=== PATIENT | female | born 1950 | race Caucasian/White ===

== ENCOUNTER 2016-08-05 11:21 | Inpatient (IN) | payer OTHER ==
[~2016-08-05] VITALS: Ht 152.4 cm; Wt 50.5 kg
[~2016-08-05 11:21] MED LIST: AMOX500T PO; ASPI81TA45 PO; PROP40TA3 PO; VARE1PAK3 PO; WELL150T PO
[2016-08-05 11:23] VITALS: BP 124/78; PULSE 78; RESP 18; TEMP 97.5; O2SAT 96
--- NOTE | 2016-08-05 14:40 | PD ---
HPI Chief Complaint: Eye Problems/Injury Time Seen by Provider: 14:39 Travel History International Travel<30 days: No Contact w/Intl Traveler<30days: No Traveled to known affect area: No History of Present Illness HPI 66-year-old female with history of migraines, presents to the emergency department for evaluation of erythema, edema, and right eye pain. Patient states this is worsening over the last 2-3 days. Patient states she has had a chronic sinus infection on the right side over the last year and has been treating not but it has never led to swelling or pain like this. She denies any visual changes. Patient went to urgent care and they advised she come to the emergency department for CT evaluation and possible IV antibiotics. Patient reports subjective chills unknown fever. Has right sided headache and pain radiating from the site. Denies nausea or vomiting. No chest tightness. No difficulty breathing. No other symptoms to report. Patient has been taking Sudafed and her Fioricet to help with the pain. PFSH Past Medical History Hypertension: Yes Migraines: Yes Past Surgical History Appendectomy: Yes Section: Yes Tonsillectomy: Yes Social History Alcohol Use: No Tobacco Use: Yes (08/03 PPD) Substance Use: No Allergies-Medications (Allergen,Severity, Reaction): Coded Allergies: No Known Allergies (Unverified , 08/15/15) Reported Meds & Prescriptions Reported Meds & Active Scripts Active Reported Xanax (Alprazolam) 0.5 Mg Tab 0.5 Mg PO Q8H PRN Fioricet (Oorqmhsqwo-Giygubtvsotnl-Ttmamuof) 50-300-40 Mg Cap 1 Cap PO Propranolol (Propranolol HCl) 40 Mg Tab 40 Mg PO Q12HR Review of Systems Except as stated in HPI: all other systems reviewed are Neg Physical Exam Narrative GENERAL: Well-nourished female patient, lying in bed, in no acute distress SKIN: Warm and dry. Periorbital edema of the right eye primarily inferior to the eye but it does involve both lids. There appears to be a collection in the medial aspect of the eye. This is warm and very tender to palpation. HEAD: Atraumatic. Normocephalic. EYES: No scleral icterus. No injection or drainage. EOMI. PERRL ENT: No nasal bleeding or discharge. Mucous membranes pink and moist. NECK: Trachea midline. No JVD. CARDIOVASCULAR: Regular rate and rhythm. No murmur appreciated. RESPIRATORY: No accessory muscle use. Clear to auscultation. Breath sounds equal bilaterally. GASTROINTESTINAL: Abdomen soft, non-tender, nondistended. Hepatic and splenic margins not palpable. MUSCULOSKELETAL: No obvious deformities. No clubbing. No cyanosis. No edema. NEUROLOGICAL: Awake and alert. No obvious cranial nerve deficits. Motor grossly within normal limits. Normal speech. PSYCHIATRIC: Appropriate mood and affect; insight and judgment normal. Data Data Last Documented VS Vital Signs Date Time Temp Pulse Resp B/P Pulse Ox O2 Delivery O2 Flow Rate FiO2 08/05/16 11:23 97.5 78 18 124/78 96 Room Air Orders Iv Access Insert/Monitor (08/05/16 14:36) Complete Blood Count With Diff (08/05/16 14:36) Basic Metabolic Panel (Bmp) (08/05/16 14:36) Ct Facial Bones W Iv Contrast (08/05/16 ) Iohexol 350 Inj (Omnipaque 350 Inj) (08/05/16 17:19) Ceftriaxone Inj (Rocephin Inj) (08/05/16 18:30) Dexamethasone Inj (Decadron Inj) (08/05/16 18:30) Clindamycin Inj (Cleocin Inj) (08/05/16 18:30) Consult Ent (08/05/16 ) Admit To Inpatient (08/05/16 ) Code Status (08/05/16 18:37) Vital Signs (Adult) Q4H (08/05/16 18:37) Activity Oob With Assistance (08/05/16 18:37) Diet Npo (08/05/16 Dinner) Sodium Chloride 0.9% Flush (Ns Flush) (08/05/16 18:45) Sodium Chloride 0.9% Flush (Ns Flush) (08/05/16 21:00) Acetaminophen (Tylenol) (08/05/16 18:45) Ondansetron Inj (Zofran Inj) (08/05/16 18:45) Bisacodyl Supp (Dulcolax Supp) (08/05/16 18:45) Chest, Single Ap (08/05/16 18:37) Electrocardiogram (08/05/16 18:37) Scd Bilateral/Knee High MO.BID (08/05/16 18:37) Naloxone Inj (Narcan Inj) (08/05/16 18:45) Inpatient Certification (08/05/16 ) Admit Order (Ed Use Only) (08/05/16 18:43) Labs Laboratory Tests Test 08/05/16 15:00 White Blood Count 11.8 TH/MM3 Red Blood Count 4.06 MIL/MM3 Hemoglobin 12.3 GM/DL Hematocrit 35.7 % Mean Corpuscular Volume 88.1 FL Mean Corpuscular Hemoglobin 30.4 PG Mean Corpuscular Hemoglobin 34.5 % Concent Red Cell Distribution Width 13.7 % Platelet Count 356 TH/MM3 Mean Platelet Volume 7.9 FL Neutrophils (%) (Auto) 75.6 % Lymphocytes (%) (Auto) 15.5 % Monocytes (%) (Auto) 7.3 % Eosinophils (%) (Auto) 0.8 % Basophils (%) (Auto) 0.8 % Neutrophils # (Auto) 8.9 TH/MM3 Lymphocytes # (Auto) 1.8 TH/MM3 Monocytes # (Auto) 0.9 TH/MM3 Eosinophils # (Auto) 0.1 TH/MM3 Basophils # (Auto) 0.1 TH/MM3 CBC Comment DIFF FINAL Differential Comment Sodium Level 140 MEQ/L Potassium Level 3.8 MEQ/L Chloride Level 107 MEQ/L Carbon Dioxide Level 22.9 MEQ/L Anion Gap 10 MEQ/L Blood Urea Nitrogen 11 MG/DL Creatinine 0.79 MG/DL Estimat Glomerular Filtration 73 ML/MIN Rate Random Glucose 98 MG/DL Calcium Level 9.4 MG/DL MDM Medical Decision Making Medical Screen Exam Complete: Yes Emergency Medical Condition: Yes Medical Record Reviewed: Yes Differential Diagnosis Preseptal cellulitis versus subcutaneous abscess versus orbital cellulitis versus clogged lacrimnal duct versus cyst Narrative Course 66-year-old female presents to emergency department for evaluation of swelling of the right eye. Workup is initiated in triage. Once a medical bed becomes available, patient be transferred to that pod and care will be assumed by the provider did not pod. 1800 CT imaging of the facial bones reveals a slightly heterogeneous focal 2 cm low density mass or collection in the lower medial right periorbital soft tissues which appears to reflect pre-septal periorbital phlegmon with prominent surrounding cellulitic change. This does appear to be contiguous with the adjacent nasolacrimal duct which is enlarged and opacified. Ipsilateral nasal cavity is opacified with mucosal disease as are the frontal, ethmoid, sphenoid and maxillary sinuses on this ipsilateral right side. There appears to be extensive maxillary dental disease with permeative to frankly destructive changes involving the midline anterior maxilla and pre-molar tooth root regions on the right. The contralateral left orbitofacial structures are nonacute in appearance. The cho of the left maxillary sinus are markedly thickened and hyperostotic which may relate to prior chronic sinus disease or may reflect bony dysplasia. 181 I discussed the patient with Dr. Newman. He request to review the CT and will call me back [phone] Newman. He requests the patient be admitted to medicine, started on Rocephin 2 g twice a day, clindamycin 900 mg 3 times a day, and given a dose of IV Decadron 12 mg. A call was placed to [facility] hot iron worker. I discussed the plan with the patient. She is in agreement with the splenic care [address] Camarena. Patient will be admitted to his service. Diagnosis Primary Impression: Phlegmonous dacryocystitis of right lacrimal passage Additional Impressions: Facial cellulitis Bone destruction Admitting Information Admitting Physician Requests: Admit Condition: Stable BaePati miranda LUISITO Aug 05, 2016 14:40
[2016-08-05 15:47] LABS: AUTOMATED NEUTROPHIL # 8.9 TH/MM3 (1.8-7.7); BASOPHIL # 0.1 TH/MM3 (0-0.2); BASOPHIL % 0.8 % (0.0-2.0); EOSINOPHIL # 0.1 TH/MM3 (0-0.4); EOSINOPHIL % 0.8 % (0.0-4.0); HEMATOCRIT 35.7 % (35.0-46.0); HEMO FLAGS DIFF FINAL; LYMPH % 15.5 % (9.0-44.0); LYMPHOCYTE # 1.8 TH/MM3 (1.0-4.8); MEAN CELL VOLUME 88.1 FL (80.0-100.0); MEAN CORPUSCULAR HEMOGLOBIN 30.4 PG (27.0-34.0); MEAN CORPUSCULAR HGB CONC 34.5 % (32.0-36.0); MONO % 7.3 % (0.0-8.0); NEUT % 75.6 % (16.0-70.0); PLATELET COUNT 356 TH/MM3 (150-450); RED BLOOD COUNT 4.06 MIL/MM3 (4.00-5.30); RED CELL DISTRIBUTION WIDTH 13.7 % (11.6-17.2); WHITE BLOOD COUNT 11.8 TH/MM3 (4.0-11.0)
[2016-08-05 16:27] LABS: BICARBONATE 22.9 MEQ/L (21.0-32.0); POTASSIUM 3.8 MEQ/L (3.5-5.1)
[2016-08-05] MEDS ORDERED: IOHEXOL 350 MG/ML 10 ML VIAL (for RAD DIAG) IV ONE (17:19)
--- NOTE | 2016-08-05 17:51 | RADRPT ---
EXAM DATE/TIME: 08/05/2016 17:12 [facility] COMPARISON: No previous studies available for comparison. INDICATIONS : Right periorbital edema. Cellulitis vs abscess. IV CONTRAST: 71 cc Omnipaque 350 (iohexol) IV RADIATION DOSE: 36.69 CTDIvol (mGy) MEDICAL HISTORY : None SURGICAL HISTORY : None. ENCOUNTER: Initial ACUITY: 2 days PAIN SCALE: 4/10 LOCATION: Right facial TECHNIQUE: Volumetric scanning of the facial bones was performed. Using automated exposure control and adjustme nt of the mA and/or kV according to patient size, radiation dose was kept as low as reasonably achiev able to obtain optimal diagnostic quality images. FINDINGS: There is a slightly heterogeneous focal 2 cm low density mass or collection in the lower medial right periorbital soft tissues which appears to reflect pre-septal periorbital phlegmon with prominent jailene rounding cellulitic change. This does appear to be contiguous with the adjacent nasolacrimal duct whi ch is enlarged and opacified. Ipsilateral nasal cavity is opacified with mucosal disease as are the f rontal, ethmoid, sphenoid and maxillary sinuses on this ipsilateral right side. There appears to be e xtensive maxillary dental disease with permeative to frankly destructive changes involving the midlin e anterior maxilla and pre-molar tooth root regions on the right. The contralateral left orbitofacial structures are nonacute in appearance. The cho of the left maxillary sinus are markedly thickened and hyperostotic which may relate to yun or chronic sinus disease or may reflect bony dysplasia. The mastoids and middle ear cavities are clear. The mandible is intact and unremarkable. CONCLUSION: Periorbital phlegmon/abscess with surrounding cellulitic changes. Extensive ipsilateral sinonasal disease. Destructive changes involving the maxilla as described. Leandro Aguila MD on August 05, 2016 at 17:39 Board Certified Radiologist. This report was verified electronically.
[2016-08-05] MEDS ORDERED: CLINDAMYCIN INJ 900 MG in SODIUM CHLORIDE 0.9% INJ 100 ML IV ONE (18:30)
[2016-08-05] MEDS ORDERED: DEXAMETHASONE SOD PHOS 4 MG/ML VIAL IV PUSH ONE (18:30)
[2016-08-05] MEDS ORDERED: cefTRIAXone INJ 2,000 MG in SODIUM CHLORIDE 0.9% INJ 100 ML IV ONE (18:30)
[2016-08-05] MEDS ORDERED: SODIUM CHLORIDE 0.9% FLUSH 5 ML FLUSH FLUSH PRN (18:45)
[2016-08-05] MEDS ORDERED: NALOXONE HCL 0.4 MG/ML AMP IV PRN (18:45)
[2016-08-05] MEDS ORDERED: ACETAMINOPHEN 325 MG TAB PO PRN (18:45)
[2016-08-05] MEDS ORDERED: BISACODYL 10 MG SUPP PR PRN (18:45)
[2016-08-05] MEDS ORDERED: ONDANSETRON HCL 4 MG/2 ML VIAL IVP PRN (18:45)
[2016-08-05 18:48] VITALS: BP 157/71; PULSE 68; RESP 17; O2SAT 96
[2016-08-05] MEDS ORDERED: BUTA1CAP PO (18:57)
[2016-08-05] MEDS ORDERED: PROP40TA3 PO (18:57)
[2016-08-05] MEDS ORDERED: ALPR.5 PO (18:57)
[2016-08-05] MEDS ORDERED: ACETAMINOPHEN/HYDROcodone 325 MG/5 MG TAB PO PRN (19:00)
[2016-08-05] MEDS ORDERED: cloNIDine HCL 0.2 MG TAB PO PRN (19:00)
[2016-08-05] MEDS ORDERED: ENALAPRILAT 1.25 MG/ML VIAL IV PRN (19:00)
[2016-08-05] MEDS ORDERED: HYDROmorphone HCL PF 1 MG/ML VIAL IV PUSH PRN (19:00)
[2016-08-05] MEDS ORDERED: ALPRAZolam 0.5 MG TAB PO PRN (19:15)
--- NOTE | 2016-08-05 19:48 | RADRPT ---
EXAM DATE/TIME: 08/05/2016 19:27 [facility] COMPARISON: No previous studies available for comparison. INDICATIONS : Cough. MEDICAL HISTORY : None. SURGICAL HISTORY : None. ENCOUNTER: Initial ACUITY: 1 day PAIN SCORE: 0/10 LOCATION: Bilateral chest FINDINGS: A single view of the chest demonstrates the lungs to be symmetrically aerated without evidence of mas s, infiltrate or effusion. The cardiomediastinal contours are unremarkable. Osseous structures are intact. CONCLUSION: No acute disease. Jian Og MD on August 05, 2016 at 19:47 Board Certified Radiologist. This report was verified electronically.
[2016-08-05 20:29] VITALS: BP 120/88
--- NOTE | 2016-08-05 20:29 | MB ---
cc: OWEN CAMARENA JAMES M. MD DATE OF CONSULTATION: 08/05/2016 REASON FOR ENT CONSULTATION: Orbital pain and swelling. REQUESTING PHYSICIAN: Samira Grimes, nurse practitioner HISTORY OF PRESENT ILLNESS Rosa Mccullough is a 66-year-old woman who presented to the emergency room complaining of several days of progressive pain involving the right eye associated with swelling. She states she has had problems in this area for the last year. At that time she states she had fallen and struck her face on a stairway and fractured her nose. This was never treated. Ever since that time she has had right nasal dyspnea and sinus symptoms. She has had numerous rounds of antibiotics, primarily penicillin throughout this time for her sinuses. She has noted also one year ago she underwent extraction of right upper molars and was advised by her dentist there was missing bone in her maxilla open to the sinuses. The wound was closed and the dentist referred her to an oral surgeon with concern that there was cancer present which had destroyed the bone. She states she went then to see her primary care doctor for a referral to the oral surgeon, and was advised that there was no cancer present and the issue was not pursued further. She notes problems with chewing and pain primarily in her right maxilla and hard palate. She denies any change or revision and denies diplopia. The left side of her nose remains trouble free. She has a long history of tobacco use. She denies diabetes or immune compromise. She still has a history of high blood pressure and migraines. ALLERGIES: NO KNOWN DRUG ALLERGIES. MEDICATIONS: 1. Xanax. 2. Fioricet 3. Propranolol SOCIAL HISTORY: She denies alcohol use. 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 She smokes a pack of cigarettes per day. Denies drug use. PHYSICAL EXAMINATION: She is alert, cooperative in no apparent distress. VITAL SIGNS: Temperature 97.5, pulse 78, respiratory rate 18. Blood pressure is 124/78. Pulse oximetry is 98% on room air. HEENT: Head is normocephalic, atraumatic. Face, there is marked right periorbital edema with firm edema and erythema involving the right medial canthal area inferiorly, greater than the upper lid. She is able to open her eyes completely. Her extraocular eye motion is intact without diplopia. Oral cavity, remaining teeth are in fair condition. There is an eroded area through the mucosa of the hard palate on the right paramedian area. This does not appear neoplastic. It is tender to palpation. On the right gingival buccal sulcus there is exposed bone and possibly neoplastic tissue present in the exposed area. There is a horrific odor in the oral cavity coming from this area. Tongue is normal. Lower teeth and mandible are normal. There are no other mucosal lesions noted. The oropharynx is normal. Neck: There are no nodes or masses. Larynx and trachea midline. Ears: Normal auricles, ear canals and tympanic membranes. Fiberoptic nasal endoscopy shows a rightward deviation of septum and possible soft tissue mass filling the right nasal vault. There is no gross purulence present. CT scan of the sinuses shows involvement of all the right paranasal sinuses with apparent erosion into the right orbit just posterior to the lacrimal fossa. There is inflammatory mass versus neoplastic mass involving the anterior orbit in this area. There is no proptosis noted. 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 PLAN Discussed these findings with the patient and also with the admitting doctor, Dr. Camarena. For now we will begin her on aggressive antibiotic therapy along with a bolus of intravenous Decadron and follow in-house. I would like to see some decrease of inflammation before attempting further intranasal or sinus examination. This would likely be required under general anesthesia. Possibly obtain a biopsy from the paranasal sinuses or from the exposed and demucosalized area of the right gingiva buccal sulcus. Austin Newman MD [facility] [place] /7:28 PM /8:15 PM
[2016-08-05 20:45] VITALS: BP 150/72; PULSE 69; RESP 16; TEMP 97.8; O2SAT 97
[2016-08-05] MEDS: SODIUM CHLORIDE 0.9% FLUSH 5 ML FLUSH FLUSH SCH (20:49)
[2016-08-05] MEDS: DOCUSATE SODIUM 100 MG CAP PO SCH (20:49)
[2016-08-05] MEDS: PROPRANOLOL HCL 40 MG TAB PO SCH (21:00)
[2016-08-06] VITALS: BP 114/70; PULSE 69; RESP 16; TEMP 98; O2SAT 97
[2016-08-06 04:00] VITALS: BP 111/67; PULSE 63; RESP 16; TEMP 96.5; O2SAT 98
[2016-08-06] MEDS: CLINDAMYCIN INJ 900 MG in SODIUM CHLORIDE 0.9% INJ 100 ML IV SCH ×2 (04:29→10:15)
--- NOTE | 2016-08-06 05:30 | EKG ---
Date Performed: 08/05/2016 Time Performed: 18:33:53 PTAGE: 66 years EKG: Sinus rhythm NORMAL ECG NO PREVIOUS TRACING DOCTOR: Willie Vargas Interpretating Date/Time 08/06/2016 05:28:33
[2016-08-06 07:06] LABS: AUTOMATED NEUTROPHIL # 6.4 TH/MM3 (1.8-7.7); BASOPHIL % 0.5 % (0.0-2.0); HEMATOCRIT 34.5 % (35.0-46.0); HEMO FLAGS DIFF FINAL; LYMPH % 12.2 % (9.0-44.0); LYMPHOCYTE # 0.9 TH/MM3 (1.0-4.8); MEAN CELL VOLUME 87.3 FL (80.0-100.0); MEAN CORPUSCULAR HGB CONC 33.2 % (32.0-36.0); MONO % 2.6 % (0.0-8.0); NEUT % 84.7 % (16.0-70.0); PLATELET COUNT 357 TH/MM3 (150-450); RED BLOOD COUNT 3.96 MIL/MM3 (4.00-5.30); RED CELL DISTRIBUTION WIDTH 13.9 % (11.6-17.2); WHITE BLOOD COUNT 7.5 TH/MM3 (4.0-11.0)
[2016-08-06 07:20] LABS: BICARBONATE 25.3 MEQ/L (21.0-32.0); POTASSIUM 4.3 MEQ/L (3.5-5.1)
[2016-08-06] MEDS: SODIUM CHLORIDE 0.9% FLUSH 5 ML FLUSH FLUSH SCH ×2 (07:49→21:00)
[2016-08-06] MEDS: DOCUSATE SODIUM 100 MG CAP PO SCH ×2 (07:49→21:06)
[2016-08-06] MEDS: PROPRANOLOL HCL 40 MG TAB PO SCH ×2 (07:49→21:06)
[2016-08-06 08:00] VITALS: BP 116/65; PULSE 61; RESP 16; TEMP 96.8; O2SAT 97
[2016-08-06] MEDS ORDERED: cefTRIAXone INJ 2,000 MG in SODIUM CHLORIDE 0.9% INJ 100 ML IV SCH (08:00)
--- NOTE | 2016-08-06 09:19 | HHI.HP ---
HPI Service [facility] Hospitalists Primary Care Physician Dr. Chan Nolen Admission Diagnosis R periorbital cellulitis;phlegmon/abscesss;bone destruction Rmaxilla Chief Complaint: Right orbital pain and swelling Travel History International Travel<30 Days: No Contact w/Intl Traveler <30 Da: No Traveled to Known Affected Are: No History of Present Illness Ms. Mccullough is a 66 y/o female with anxiety, hyperlipidemia, and GERD who [place] [facility] complaints of several days of progressive pain involving the right eye associated with swelling. She states she has had problems in this area for the last year. At that time she states she had fallen and struck her face on a stairway and fractured her nose. This was never treated. Ever since that time she has had sinus symptoms. She reports that she had numerous rounds of antibiotics, throughout this time for her sinuses. She has noted also one year ago she underwent extraction of right upper molars and was advised by her dentist there was missing bone in her maxilla open to the sinuses. The wound was closed and the dentist referred her to an oral surgeon with concern that there was cancer present which had destroyed the bone. She did not see the oral surgeon. She notes problems with chewing and pain primarily in her right maxilla and hard palate. She denies any change in her vision or diplopia. She has a long history of tobacco use. CT of the maxillary sinuses revealed periorbital phlegmon/abscess with surrounding cellulitic changes, extensive ipsilateral sinonasal disease and destructive changes involving the maxilla. ENT has evaluated the patient and she has been started on Abx and steroids. Review of Systems Constitutional: DENIES: Fever, Chills Eyes: DENIES: Blurred vision, Diplopia, Vision loss Ears, nose, mouth, throat: COMPLAINS OF: Nasal discharge, Oral lesions, Sinus Pain, DENIES: Hearing loss, Vertigo, Throat pain, Epistaxis, Odynophagia Respiratory: DENIES: Cough, Shortness of breath Cardiovascular: DENIES: Chest pain, Palpitations Gastrointestinal: DENIES: Abdominal pain, Bloody stools, Constipation, Diarrhea , Nausea, Vomiting Genitourinary: DENIES: Hematuria, Dysuria Musculoskeletal: DENIES: Neck pain Integumentary: DENIES: Rash Neurologic: DENIES: Headache Past Family Social History Past Medical History Anxiety Asthma/COPD per EHR records. Pt denies this and is not on any medications. Cataracts Diverticulosis Familial tremor GERD Tobacco use Past Surgical History Hysterectomy Cholecystectomy Lumpectomy/partial mastectomy in 2006 Reported Medications Clonazepam 0.5mg PO BID Crestor 5mg PO Daily Ranitidine 150mg po Daily Fioricet 50-300-40 Mg Cap 1 Cap PO daily PRN Propranolol 40 Mg PO Q12HR (for familial tremors) Allergies: Coded Allergies: No Known Allergies (Unverified , 08/15/15) Family History Father with hx of CAD Mother with hx of pancreatic cancer Social History (+)Tobacco use, 1/2ppd x 40+ years (+)Marijuana use, smokes marijuana 2-3 times per week, 40+ years Denies any alcohol use Physical Exam Vital Signs Vital Signs Date Time Temp Pulse Resp B/P Pulse Ox O2 Delivery O2 Flow Rate FiO2 08/06/16 08:00 96.8 61 16 116/65 97 08/06/16 04:00 96.5 63 16 111/67 98 08/06/16 00:00 98.0 69 16 114/70 97 08/05/16 20:45 97.8 69 16 150/72 97 08/05/16 20:29 68 15 120/88 96 08/05/16 18:50 70 15 08/05/16 18:48 68 17 157/71 96 Room Air 08/05/16 11:23 97.5 78 18 124/78 96 Room Air Physical Exam GENERAL: This is a well-nourished, well-developed patient, in no apparent distress. SKIN: No rashes, ecchymoses or lesions. Cool and dry. HEENT: Atraumatic. Normocephalic. No temporal or scalp tenderness. Erythema and welling of the right orbit. EOM are intact. Ulcerated area and exposed bone on the right gingival buccal area. Airway patent. NECK: Trachea midline, supple, nontender. CARDIO: Regular. RESP: CTA bilaterally. No wheezes, rales, or rhonchi. ABD: +BS, soft, non-tender, nondistended. EXT: Extremities without clubbing, cyanosis, or edema. NEURO: Awake and alert. Motor and sensory grossly within normal limits. Normal speech. Laboratory Laboratory Tests Test 08/05/16 08/06/16 08/06/16 15:00 06:04 06:06 White Blood Count 11.8 7.5 Red Blood Count 4.06 3.96 Hemoglobin 12.3 11.5 Hematocrit 35.7 34.5 Mean Corpuscular Volume 88.1 87.3 Mean Corpuscular Hemoglobin 30.4 29.0 Mean Corpuscular Hemoglobin 34.5 33.2 Concent Red Cell Distribution Width 13.7 13.9 Platelet Count 356 357 Mean Platelet Volume 7.9 7.6 Neutrophils (%) (Auto) 75.6 84.7 Lymphocytes (%) (Auto) 15.5 12.2 Monocytes (%) (Auto) 7.3 2.6 Eosinophils (%) (Auto) 0.8 0.0 Basophils (%) (Auto) 0.8 0.5 Neutrophils # (Auto) 8.9 6.4 Lymphocytes # (Auto) 1.8 0.9 Monocytes # (Auto) 0.9 0.2 Eosinophils # (Auto) 0.1 0.0 Basophils # (Auto) 0.1 0.0 CBC Comment DIFF FINAL DIFF FINAL Differential Comment Sodium Level 140 143 Potassium Level 3.8 4.3 Chloride Level 107 108 Carbon Dioxide Level 22.9 25.3 Anion Gap 10 10 Blood Urea Nitrogen 11 17 Creatinine 0.79 0.67 Estimat Glomerular Filtration 73 89 Rate Random Glucose 98 136 Calcium Level 9.4 9.2 Magnesium Level 2.0 Result Diagram: 08/06/16 0606 08/06/16 0604 Imaging Last Impressions Chest X-Ray 08/05/16 1837 Signed Impressions: Service Date/Time: Friday, August 05, 2016 19:27 - CONCLUSION: No acute disease. Jian Og MD Maxillofacial CT 08/05/16 0000 Signed Impressions: Service Date/Time: Friday, August 05, 2016 17:12 - CONCLUSION: Periorbital phlegmon/abscess with surrounding cellulitic changes. Extensive ipsilateral sinonasal disease. Destructive changes involving the maxilla as described. Leandro Aguila MD Septic Shock Reassessment Heart: Regular rate and rhythm Lungs: Clear Skin: Warm Peripheral Pulses: Bounding Right Radial Bounding Left Radial Bounding Right Popliteal Bounding Left Popliteal Bounding Right Dorsalis Pedis Bounding Left Dorsalis Pedis Bounding Right Posterior Tibial Bounding Left Posterior Tibial Capillary Refill: <2 seconds Assessment and Plan Problem List: (1) Periorbital cellulitis of right eye Status: Acute Plan: - Pt was admitted with complaints of several days of progressive pain involving the right eye associated with swelling. - She also noted longstanding problems with chewing and pain primarily in her right maxilla and hard palate. - CT of the maxillary sinuses revealed periorbital phlegmon/abscess with surrounding cellulitic changes, extensive ipsilateral sinonasal disease and destructive changes involving the maxilla. - There is concern for possible neoplastic process. - ENT has evaluated the patient and she has been started on Rocephin and Clindamycin - Pt was given Decadron IV at admission. - Pt will likely need surgical intervention with biopsy once the acute inflammation improves - ID has been consulted - Supportive care - Diet as tolerated - DVT prophylaxis (2) Bone destruction Status: Acute Plan: - See above. (3) Anxiety Status: Chronic Plan: - Anxiolytics PRN (4) Hyperlipidemia Status: Chronic Plan: - Home meds continued (5) GERD (gastroesophageal reflux disease) Status: Chronic Plan: - PPI Assessment and Plan Patient examined. Assessment and plan formulated with Lashawn Tamayo PA-C. I agree with the above. Physician Certification 2 Midnight Certification Type: Admission for Inpatient Services Order for Inpatient Services The services are ordered in accordance with Medicare regulations or non- Medicare payer requirements, as applicable. In the case of services not specified as inpatient-only, they are appropriately provided as inpatient services in accordance with the 2-midnight benchmark. Estimated LOS (days): 3 3 days is the estimated time the patient will need to remain in the hospital, assuming treatment plan goals are met and no additional complications. Post-Hospital Plan: Not yet determined Lashawn Tamayo Aug 06, 2016 09:19 Juliocesar Camarena DO Aug 08, 2016 16:25
[2016-08-06 12:00] VITALS: BP 108/54; PULSE 68; RESP 18; TEMP 96.4; O2SAT 96
--- NOTE | 2016-08-06 15:59 | PD.ID.CON ---
History of Present Illness Service ID Consult Requested By Dr Camarena Reason for Consult R periorbital celulitis Primary Care Physician Niki Louie MD Diagnoses: History of Present Illness 66 yo female denies PMH except for tobaccoism presents with 5 day of swollen painful red R periorbial area Mild leukocytosis no fever od admission CT showd Periorbital phlegmon/abscess with surrounding cellulitic changes. Extensive ipsilateral sinonasal disease. Destructive changes involving the maxilla as described. Dr Newman from ENT saw her and is planning surgery There is a concernt for neoplastic process Pt was started on clindamycin, CFTX, i started her zosyn, vanomcyn Review of Systems Other as per history of present illness, the rest of 12 point review id negative Past Family Social History Allergies: Coded Allergies: No Known Allergies (Unverified , 08/15/15) Past Medical History Anxiety Asthma/COPD per EHR records. Pt denies this and is not on any medications. Cataracts Diverticulosis Familial tremor GERD Tobacco use Past Surgical History Hysterectomy Cholecystectomy Lumpectomy/partial mastectomy in 2006 Active Ordered Medications Medications where reviewed in EMR Antibiotics Include: vancomycin zosyn Family History Father with hx of CAD Mother with hx of pancreatic cancer Social History (+)Tobacco use, 1/2ppd x 40+ years (+)Marijuana use, smokes marijuana 2-3 times per week, 40+ years Denies any alcohol use Physical Exam Vital Signs Vital Signs Date Time Temp Pulse Resp B/P Pulse Ox O2 Delivery O2 Flow Rate FiO2 08/06/16 12:00 96.4 68 18 108/54 96 08/06/16 08:00 96.8 61 16 116/65 97 08/06/16 04:00 96.5 63 16 111/67 98 08/06/16 00:00 98.0 69 16 114/70 97 08/05/16 20:45 97.8 69 16 150/72 97 08/05/16 20:29 68 15 120/88 96 08/05/16 18:50 70 15 08/05/16 18:48 68 17 157/71 96 Room Air Physical Exam CONSTITUTIONAL/GENERAL: This is a thin female elderly patient, in no apparent distress. SKIN: No jaundice, rashes, or lesions.. Skin temperature appropriate. Not diaphoretic. HEAD: Atraumatic. Normocephalic. EYES: Pupils equal and round and reactive. Extraocular motions intact. No scleral icterus. No injection or drainage. Fundi not examined. Markedly edematous and erythematous R periorbital area Small crued old lesion sseen on medial aspect of lower lid. Lesion is dry crust ENT: Hearing grossly normal. Nose without bleeding or purulent drainage. Throat without visible erythema, exudates, masses, or lesions. Dentition is in a very poor condition with exposed bone R side of uper jaw NECK: Trachea midline. Supple, nontender. No palpable thyroid enlargement or nodularity. CARDIOVASCULAR: Regular rate and rhythm without murmurs, gallops, or rubs. No JVD. Peripheral pulses symmetric. RESPIRATORY/CHEST: Symmetric, unlabored respirations. Clear to auscultation. Breath sounds equal bilaterally. No wheezes, rales, or rhonchi. GASTROINTESTINAL: Abdomen soft, non-tender, nondistended. No hepato-splenomegaly , or palpable masses. No guarding. Bowel sounds present. GENITOURINARY: Without palpable bladder distension. MUSCULOSKELETAL: Extremities without clubbing, cyanosis, or edema. No joint tenderness or effusion noted. No calf tenderness. No mottling or clubbing. LYMPHATICS: No palpable cervical or supraclavicular adenopathy. NEUROLOGICAL: Awake and alert. Motor and sensory grossly within normal limits. Follows commands. Normal speech Moves all extremities. PSYCHIATRIC: No obvious anxiety/depression. no apparent hallucinations or other psychotic thought process. Laboratory Laboratory Tests Test 08/06/16 08/06/16 06:04 06:06 Sodium Level 143 Potassium Level 4.3 Chloride Level 108 Carbon Dioxide Level 25.3 Anion Gap 10 Blood Urea Nitrogen 17 Creatinine 0.67 Estimat Glomerular Filtration 89 Rate Random Glucose 136 Calcium Level 9.2 Magnesium Level 2.0 White Blood Count 7.5 Red Blood Count 3.96 Hemoglobin 11.5 Hematocrit 34.5 Mean Corpuscular Volume 87.3 Mean Corpuscular Hemoglobin 29.0 Mean Corpuscular Hemoglobin 33.2 Concent Red Cell Distribution Width 13.9 Platelet Count 357 Mean Platelet Volume 7.6 Neutrophils (%) (Auto) 84.7 Lymphocytes (%) (Auto) 12.2 Monocytes (%) (Auto) 2.6 Eosinophils (%) (Auto) 0.0 Basophils (%) (Auto) 0.5 Neutrophils # (Auto) 6.4 Lymphocytes # (Auto) 0.9 Monocytes # (Auto) 0.2 Eosinophils # (Auto) 0.0 Basophils # (Auto) 0.0 CBC Comment DIFF FINAL Differential Comment Result Diagram: 08/06/16 0606 08/06/16 0604 Imaging Last Impressions Chest X-Ray 08/05/16 1837 Signed Impressions: Service Date/Time: Friday, August 05, 2016 19:27 - CONCLUSION: No acute disease. Jian Og MD Maxillofacial CT 08/05/16 0000 Signed Impressions: Service Date/Time: Friday, August 05, 2016 17:12 - CONCLUSION: Periorbital phlegmon/abscess with surrounding cellulitic changes. Extensive ipsilateral sinonasal disease. Destructive changes involving the maxilla as described. Leandro Aguila MD Assessment and Plan Assessment and Plan (1) Periorbital cellulitis of right eye - destructive ipslateral maxilla bone process: neoplasia vs infx ( osteomyelitis?) - extensive caries Rec's: cont vanco, zosun furtherrec's to follow Discussed Condition With Karoline Toney MD Aug 06, 2016 15:59
[2016-08-06 16:00] VITALS: BP 100/63; PULSE 62; RESP 16; TEMP 97.5; O2SAT 95
[2016-08-06] MEDS: NICOTINE 21 MG/24 HR PATCH TD SCH (16:00)
[2016-08-06] MEDS ORDERED: Vancomycin Consult Pharmacy 1 EA IV SCH (16:00)
[2016-08-06] MEDS: IBUPROFEN 600 MG TAB PO PRN (16:01)
[2016-08-06] MEDS: PIPERACIL-TAZO 3.375 GM PREMIX 50 ML IV SCH ×2 (18:38→21:06)
[2016-08-06] MEDS: VANCOMYCIN INJ 750 MG in SODIUM CHLOR 0.9% 250 ML INJ 250 ML IV SCH (19:45)
[2016-08-06 20:00] VITALS: BP 105/60; PULSE 68; RESP 16; TEMP 98.2; O2SAT 96
[2016-08-07 00:11] VITALS: BP 106/58; PULSE 91; RESP 16; TEMP 96.4; O2SAT 99
[2016-08-07 04:00] VITALS: BP 116/70; PULSE 56; RESP 16; TEMP 96.9; O2SAT 97
[2016-08-07] MEDS: PIPERACIL-TAZO 3.375 GM PREMIX 50 ML IV SCH ×4 (04:33→23:17)
[2016-08-07] MEDS: IBUPROFEN 600 MG TAB PO PRN (04:33)
[2016-08-07 07:14] LABS: AUTOMATED NEUTROPHIL # 4.9 TH/MM3 (1.8-7.7); BASOPHIL # 0.1 TH/MM3 (0-0.2); BASOPHIL % 0.8 % (0.0-2.0); EOSINOPHIL # 0.1 TH/MM3 (0-0.4); EOSINOPHIL % 1.8 % (0.0-4.0); HEMATOCRIT 33.4 % (35.0-46.0); HEMO FLAGS DIFF FINAL; LYMPH % 32.2 % (9.0-44.0); LYMPHOCYTE # 2.7 TH/MM3 (1.0-4.8); MEAN CELL VOLUME 87.9 FL (80.0-100.0); MEAN CORPUSCULAR HEMOGLOBIN 29.2 PG (27.0-34.0); MEAN CORPUSCULAR HGB CONC 33.2 % (32.0-36.0); MONO % 7.8 % (0.0-8.0); NEUT % 57.4 % (16.0-70.0); PLATELET COUNT 343 TH/MM3 (150-450); WHITE BLOOD COUNT 8.5 TH/MM3 (4.0-11.0)
[2016-08-07 07:38] LABS: BICARBONATE 25.4 MEQ/L (21.0-32.0); MAGNESIUM 1.8 MG/DL (1.5-2.5); POTASSIUM 3.7 MEQ/L (3.5-5.1)
[2016-08-07 08:00] VITALS: BP 118/61; PULSE 57; RESP 16; TEMP 96.5; O2SAT 93
[2016-08-07] MEDS ORDERED: IOHEXOL 350 MG/ML 10 ML VIAL (for RAD DIAG) IV ONE (08:09)
[2016-08-07] MEDS: DOCUSATE SODIUM 100 MG CAP PO SCH ×2 (09:00→21:00)
--- NOTE | 2016-08-07 09:47 | RADRPT ---
EXAM DATE/TIME: 08/07/2016 08:01 [facility] COMPARISON: No previous studies available for comparison. INDICATIONS: Evaluate for mass. IV CONTRAST: 50 cc Omnipaque 350 (iohexol) IV RADIATION DOSE: 13.16 CTDIvol (mGy) MEDICAL HISTORY: Hypertension. SURGICAL HISTORY: None. ENCOUNTER: Initial ACUITY: 1 day PAIN SCALE: 4/10 LOCATION: Neck TECHNIQUE: Volumetric scanning of the neck was performed. Using automated exposure control and adjustment of th e mA and/or kV according to patient size, radiation dose was kept as low as reasonably achievable to obtain optimal diagnostic quality images. FINDINGS: CT scan of the soft tissues of the neck was performed with contrast exclude a mass. Patient does not have a palpable abnormality. There is minimal soft tissue swelling over the right orbit. There is mucoperiosteal thickening in th e right maxillary and ethmoid sinus. There is poor dentition in the maxilla on the right side with what looks like some bony destruction o f the hard palate. Base of the tongue and tonsillar pillars unremarkable. Mid and low neck are unremarkable. CONCLUSION: Soft tissue swelling over the right orbital region. Mucoperiosteal thickening in the maxillary sinus on the right with what looks like bony destruction o f the maxilla. MRI with contrast including sagittal and coronal projections would be of benefit for further evaluation. Alphonse Henry MD FACR on August 07, 2016 at 8:24 Board Certified Radiologist. This report was verified electronically.
[2016-08-07] MEDS: NICOTINE 21 MG/24 HR PATCH TD SCH (10:00)
[2016-08-07] MEDS: SODIUM CHLORIDE 0.9% FLUSH 5 ML FLUSH FLUSH SCH ×2 (10:01→21:00)
[2016-08-07] MEDS: VANCOMYCIN INJ 750 MG in SODIUM CHLOR 0.9% 250 ML INJ 250 ML IV SCH (11:17)
[2016-08-07 12:00] VITALS: BP 101/56; PULSE 57; RESP 18; TEMP 97.4; O2SAT 94
[2016-08-07] MEDS ORDERED: PROPOFOL 200 MG/20 ML AMP IV ONE (12:00)
--- NOTE | 2016-08-07 15:59 | HHI.PR ---
Subjective Remarks Pt in OR for surgical biopsy Was not seen on the floor Spoke with nurse, no new issues or concerns from nursing staff. Objective Vitals Vital Signs Date Time Temp Pulse Resp B/P Pulse Ox O2 Delivery O2 Flow Rate FiO2 08/07/16 12:00 97.4 57 18 101/56 94 08/07/16 08:00 96.5 57 16 118/61 93 08/07/16 06:07 16 08/07/16 04:00 96.9 56 16 116/70 97 08/07/16 00:11 96.4 91 16 106/58 99 08/06/16 20:00 98.2 68 16 105/60 96 08/06/16 16:00 97.5 62 16 100/63 95 08/06/16 08/06/16 08/07/16 15:00 23:00 07:00 Intake Total 840 ml 30 ml 200 ml Balance 840 ml 30 ml 200 ml Intake Oral 840 ml 30 ml 200 ml # Voids 2 1 1 # Bowel Movements 1 0 0 Result Diagram: 08/07/16 0600 08/07/16 0600 Other Results Laboratory Tests Test 08/06/16 08/06/16 08/07/16 06:04 06:06 06:00 Sodium Level 143 MEQ/L 143 MEQ/L Potassium Level 4.3 MEQ/L 3.7 MEQ/L Chloride Level 108 MEQ/L 109 MEQ/L Carbon Dioxide Level 25.3 MEQ/L 25.4 MEQ/L Anion Gap 10 MEQ/L 9 MEQ/L Blood Urea Nitrogen 17 MG/DL 15 MG/DL Creatinine 0.67 MG/DL 0.87 MG/DL Estimat Glomerular Filtration 89 ML/MIN 66 ML/MIN Rate Random Glucose 136 MG/DL 95 MG/DL Calcium Level 9.2 MG/DL 8.6 MG/DL Magnesium Level 2.0 MG/DL 1.8 MG/DL White Blood Count 7.5 TH/MM3 8.5 TH/MM3 Red Blood Count 3.96 MIL/MM3 3.80 MIL/MM3 Hemoglobin 11.5 GM/DL 11.1 GM/DL Hematocrit 34.5 % 33.4 % Mean Corpuscular Volume 87.3 FL 87.9 FL Mean Corpuscular Hemoglobin 29.0 PG 29.2 PG Mean Corpuscular Hemoglobin 33.2 % 33.2 % Concent Red Cell Distribution Width 13.9 % 14.0 % Platelet Count 357 TH/MM3 343 TH/MM3 Mean Platelet Volume 7.6 FL 7.8 FL Neutrophils (%) (Auto) 84.7 % 57.4 % Lymphocytes (%) (Auto) 12.2 % 32.2 % Monocytes (%) (Auto) 2.6 % 7.8 % Eosinophils (%) (Auto) 0.0 % 1.8 % Basophils (%) (Auto) 0.5 % 0.8 % Neutrophils # (Auto) 6.4 TH/MM3 4.9 TH/MM3 Lymphocytes # (Auto) 0.9 TH/MM3 2.7 TH/MM3 Monocytes # (Auto) 0.2 TH/MM3 0.7 TH/MM3 Eosinophils # (Auto) 0.0 TH/MM3 0.1 TH/MM3 Basophils # (Auto) 0.0 TH/MM3 0.1 TH/MM3 CBC Comment DIFF FINAL DIFF FINAL Differential Comment Imaging Last Impressions Chest X-Ray 08/05/16 1837 Signed Impressions: Service Date/Time: Friday, August 05, 2016 19:27 - CONCLUSION: No acute disease. Jian Og MD Maxillofacial CT 08/05/16 0000 Signed Impressions: Service Date/Time: Friday, August 05, 2016 17:12 - CONCLUSION: Periorbital phlegmon/abscess with surrounding cellulitic changes. Extensive ipsilateral sinonasal disease. Destructive changes involving the maxilla as described. Leandro Aguila MD A/P Problem List: (1) Periorbital cellulitis of right eye Status: Acute Plan: - Pt was admitted with complaints of several days of progressive pain involving the right eye associated with swelling. - She also noted longstanding problems with chewing and pain primarily in her right maxilla and hard palate. - CT of the maxillary sinuses revealed periorbital phlegmon/abscess with surrounding cellulitic changes, extensive ipsilateral sinonasal disease and destructive changes involving the maxilla. - There is concern for possible neoplastic process. - ENT has evaluated the patient and she was started on Rocephin and Clindamycin at admission - Pt was given Decadron IV at admission. - Pt will likely need surgical intervention with biopsy once the acute inflammation improves - Appreciate ID consultation - Abx changed to Vanco and Zosyn on 08/06/16 - Await Neck CT results - Supportive care - Diet as tolerated - DVT prophylaxis (2) Bone destruction Status: Acute Plan: - See above. (3) Anxiety Status: Chronic Plan: - Anxiolytics PRN (4) Hyperlipidemia Status: Chronic Plan: - Home meds continued (5) GERD (gastroesophageal reflux disease) Status: Chronic Plan: - PPI Assessment and Plan Patient examined. Assessment and plan formulated with Lashawn Tamayo PA-C. I agree with the above. Lashawn Tamayo Aug 07, 2016 15:58 Juliocesar Camarena DO Aug 08, 2016 16:25
[2016-08-07 16:00] VITALS: BP 130/70; PULSE 75; RESP 16; TEMP 97.2; O2SAT 96
[2016-08-07] MEDS ORDERED: LIDOCAINE 1%/EPINEPHrine 1:100,000 SOLN 20 ML VIAL ONE (16:29)
[2016-08-07] MEDS ORDERED: OXYMETAZOLINE HCL 0.05% 15 ML NASAL SPRAY ONE (16:29)
[2016-08-07] MEDS ORDERED: MIDAZOLAM HCL 2 MG/2 ML VIAL ONE (17:04)
[2016-08-07] MEDS ORDERED: BACITRACIN TOP OINT 15 GM TUBE ONE (17:31)
[2016-08-07] MEDS ORDERED: DO NOT ADM ANY ANTICOAGULANT DRUGS XX PRN (18:30)
[2016-08-07] MEDS: CHLORHEXIDINE GLUCONATE 0.12% 30 ML CUP OTHER SCH (18:43)
--- NOTE | 2016-08-07 19:40 | MP ---
cc: ROLAND NEWMAN M.D. DATE OF SURGERY: 08/07/2016. PREOPERATIVE DIAGNOSIS: Right pansinusitis of right paranasal sinuses. POSTOPERATIVE DIAGNOSIS: 1. Right pansinusitis of right paranasal sinuses. 2. Right oroantral fistula. OPERATIVE PROCEDURE PERFORMED: 1. Endoscopic debridement of R paranasal sinuses 2. Trans oral debridement and biopsy of R maxillary sinus SURGEON: Roland Newman MD. INDICATIONS FOR THE PROCEDURE: Documented in the inpatient consultation of August 05. DESCRIPTION OF THE PROCEDURE IN DETAIL: The patient was taken to OR #8 and placed in the supine position. Following induction of general anesthesia and intubation using a laryngeal mask apparatus, the patient was prepped and draped for surgery. The nasal vault was packed bilaterally with cotton pledgets saturated in 0.05% Oxymetazoline. While these remained in place, the right superior gingiva buccal sulcus was examined. In this area where there was erosion of the mucosa above the molars and above the missing teeth on the right maxilla. There was exposed bone in this area. A segment of necrotic bone approximately 8 x 20 mm was removed and this gave entry easily into the maxillary sinus. This was evacuated of purulent material and culture was obtained from this cavity. Biopsies were obtained from the mucosa surrounding this fistula. The cavity was then irrigated with saline. It was packed for a short time with cotton pledgets saturated in the Oxymetazoline. While these remained in place, the right nose examined under endoscopic visualization. There was purulence in the right middle meatus and this was evacuated. There was no evidence of soft tissue or neoplasm in the middle meatus on the right nasal vault. The right side was once again packed with cotton pledgets saturated in the Oxymetazoline, which remained in place for an additional 5 minutes. All packing was then removed and the procedure was terminated. The patient was reversed from anesthesia and taken to recovery in good condition. There were no complications. Blood loss was 40 mL. MD JOHN Pardo/TIA /5:56 PM /7:35 PM [facility]
[2016-08-07 20:00] VITALS: BP 129/67; PULSE 62; RESP 17; TEMP 96.6; O2SAT 98
[2016-08-07] MEDS: guaiFENesin E.R. 600 MG TAB PO SCH (23:13)
[2016-08-07] MEDS: PROPRANOLOL HCL 20 MG TAB PO SCH (23:13)
[2016-08-07] MEDS: MUPIROCIN 2% OINT 22 GM TUBE TOPICAL SCH (23:17)
[2016-08-08] VITALS: BP 123/70; PULSE 60; RESP 17; TEMP 96.7; O2SAT 97
[2016-08-08 04:00] VITALS: BP 105/64; PULSE 56; RESP 16; TEMP 96.6; O2SAT 98
[2016-08-08] MEDS: PIPERACIL-TAZO 3.375 GM PREMIX 50 ML IV SCH ×4 (04:58→22:12)
[2016-08-08] MEDS: VANCOMYCIN INJ 750 MG in SODIUM CHLOR 0.9% 250 ML INJ 250 ML IV SCH ×2 (05:00→23:01)
[2016-08-08 08:00] VITALS: BP 113/60; PULSE 60; RESP 16; TEMP 96.5; O2SAT 98
[2016-08-08 08:08] LABS: AUTOMATED NEUTROPHIL # 3.9 TH/MM3 (1.8-7.7); BASOPHIL # 0.1 TH/MM3 (0-0.2); BASOPHIL % 0.9 % (0.0-2.0); EOSINOPHIL # 0.2 TH/MM3 (0-0.4); EOSINOPHIL % 2.3 % (0.0-4.0); HEMATOCRIT 32.2 % (35.0-46.0); HEMO FLAGS DIFF FINAL; LYMPH % 30.1 % (9.0-44.0); MEAN CELL VOLUME 88.4 FL (80.0-100.0); MEAN CORPUSCULAR HEMOGLOBIN 29.4 PG (27.0-34.0); MEAN CORPUSCULAR HGB CONC 33.3 % (32.0-36.0); MONO % 8.1 % (0.0-8.0); NEUT % 58.6 % (16.0-70.0); PLATELET COUNT 345 TH/MM3 (150-450); RED BLOOD COUNT 3.65 MIL/MM3 (4.00-5.30); RED CELL DISTRIBUTION WIDTH 14.1 % (11.6-17.2); WHITE BLOOD COUNT 6.7 TH/MM3 (4.0-11.0)
[2016-08-08] MEDS: PROPRANOLOL HCL 20 MG TAB PO SCH ×2 (09:00→20:37)
[2016-08-08] MEDS: MUPIROCIN 2% OINT 22 GM TUBE TOPICAL SCH ×4 (09:00→20:38)
[2016-08-08] MEDS: SODIUM CHLORIDE 0.9% FLUSH 5 ML FLUSH FLUSH SCH ×2 (09:00→20:39)
[2016-08-08] MEDS: DOCUSATE SODIUM 100 MG CAP PO SCH ×2 (09:00→20:32)
[2016-08-08] MEDS: NICOTINE 21 MG/24 HR PATCH TD SCH (09:27)
[2016-08-08] MEDS: guaiFENesin E.R. 600 MG TAB PO SCH ×2 (09:28→20:32)
[2016-08-08] MEDS: CHLORHEXIDINE GLUCONATE 0.12% 30 ML CUP OTHER SCH ×3 (09:30→16:13)
[2016-08-08 12:00] VITALS: BP 138/80; PULSE 54; RESP 16; TEMP 97.7; O2SAT 100
[2016-08-08] MEDS ORDERED: GADODIAMIDE PF 287 MG/ML 10 ML VIAL (for RAD MRI) IV ONE (14:04)
[2016-08-08 16:00] VITALS: BP 132/65; PULSE 63; RESP 16; TEMP 97.3; O2SAT 97
--- NOTE | 2016-08-08 16:38 | HHI.PR ---
Subjective Remarks No new complaints. Tolerating PO intake. Objective Vitals Vital Signs Date Time Temp Pulse Resp B/P Pulse Ox O2 Delivery O2 Flow Rate FiO2 08/08/16 16:00 97.3 63 16 132/65 97 08/08/16 12:00 97.7 54 16 138/80 100 08/08/16 08:00 96.5 60 16 113/60 98 08/08/16 04:00 96.6 56 16 105/64 98 08/08/16 00:00 96.7 60 17 123/70 97 08/07/16 20:00 96.6 62 17 129/67 98 08/07/16 18:15 65 14 154/90 99 Nasal Cannula 2 08/07/16 18:00 63 14 156/94 97 Nasal Cannula 2 08/07/16 17:45 84 14 153/92 99 Nasal Cannula 2 08/07/16 17:40 98.0 74 14 152/86 99 Nasal Cannula 2 08/07/16 08/07/16 08/08/16 15:00 23:00 07:00 Intake Total 294 ml 980 ml 240 ml Output Total 10 ml Balance 294 ml 970 ml 240 ml Intake Oral 480 ml 240 ml IV Total 294 ml 100 ml Other 400 ml Output Urine Total 0 ml Estimated Blood Loss 10 ml Other 0 ml # Voids 1 1 Result Diagram: 08/08/16 0700 08/07/16 0600 Imaging Last Impressions Neck CT 08/07/16 0600 Signed Impressions: Service Date/Time: Sunday, August 07, 2016 08:01 - CONCLUSION: Soft tissue swelling over the right orbital region. Mucoperiosteal thickening in the maxillary sinus on the right with what looks like bony destruction of the maxilla. MRI with contrast including sagittal and coronal projections would be of benefit for further evaluation. Alphonse Henry MD FACR Chest X-Ray 08/05/16 1837 Signed Impressions: Service Date/Time: Friday, August 05, 2016 19:27 - CONCLUSION: No acute disease. Jian Og MD Maxillofacial CT 08/05/16 0000 Signed Impressions: Service Date/Time: Friday, August 05, 2016 17:12 - CONCLUSION: Periorbital phlegmon/abscess with surrounding cellulitic changes. Extensive ipsilateral sinonasal disease. Destructive changes involving the maxilla as described. Leandro Aguila MD Objective Remarks GENERAL: This is a well-nourished, well-developed patient, in no apparent distress. CARDIOVASCULAR: Regular rate and rhythm without murmurs, gallops, or rubs. RESPIRATORY: Clear to auscultation. Breath sounds equal bilaterally. No wheezes , rales, or rhonchi. GASTROINTESTINAL: Abdomen soft, non-tender, nondistended. Normal active bowel sounds MUSCULOSKELETAL: Extremities without clubbing, cyanosis, or edema. NEURO: Alert & Oriented x4 to person, place, time, situation. Moves all ext x4 A/P Problem List: (1) Periorbital cellulitis of right eye Status: Acute Plan: - comgmt with ID and ENT - Pt was admitted with complaints of several days of progressive pain involving the right eye associated with swelling. - She also noted longstanding problems with chewing and pain primarily in her right maxilla and hard palate. - CT of the maxillary sinuses revealed periorbital phlegmon/abscess with surrounding cellulitic changes, extensive ipsilateral sinonasal disease and destructive changes involving the maxilla. - neck CT 08/07/16 Soft tissue swelling over the right orbital region. Mucoperiosteal thickening in the maxillary sinus on the right with what looks like bony destruction of the maxilla. MRI with contrast including sagittal and coronal projections would be of benefit for further evaluation - Facial MRI 08/08/16 - case d/w Radiology, no evidence of malignancy - formal report pending - Pt taken to OR by Dr. 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 (3) Anxiety Status: Chronic Plan: - Anxiolytics PRN (4) Hyperlipidemia Status: Chronic Plan: - Home meds continued (5) GERD (gastroesophageal reflux disease) Status: Chronic Plan: - PPI Juliocesar Camarena DO Aug 08, 2016 16:38
--- NOTE | 2016-08-08 16:43 | RADRPT ---
EXAM DATE/TIME: 08/08/2016 13:49 [facility] COMPARISON: CT SOFT TISSUE NECK W CONTRAST, August 07, 2016, 8:01. INDICATIONS : Bernabe destrcution of maxilla on CT. CONTRAST: 10 cc Omniscan (gadodiamide) IV MEDICAL HISTORY : Chronic obstructive pulmonary disease. Gastroesophageal reflux disease. SURGICAL HISTORY : Cholecystectomy. Hysterectomy. Partial mastectomy. ENCOUNTER: Subsequent ACUITY: 3 day PAIN SCORE: 0/10 LOCATION: cranial TECHNIQUE: Multi-weighted, multi-axial MR images of the facial soft tissue both before and after the administrat ion of intravenous contrast. FINDINGS: There is extensive sinus disease involving bilateral maxillary sinuses air-fluid level in the right a nd opacified or thecal periosteal thickening in the ethmoid sinus air cells with opacified sphenoid s inus and frontal sinuses. The abnormality on the maxilla right side and left side which has a somewha t sclerotic appearance on CT scan reveals no evidence of definite destructive change and no evidence of diffusion abnormality or enhancement. Findings are most consistent with reactive changes secondary to chronic sinus disease. CONCLUSION: Extensive sinus disease as described above. Maxilla changes are most likely reactive secondary to thi s without definite destructive change or lytic process with no enhancement or diffusion abnormality Delano Childs MD on August 08, 2016 at 16:28 Board Certified Radiologist. This report was verified electronically.
[2016-08-08] MEDS: IRR IRRIGATION SCH (19:25)
[2016-08-08] MEDS: SODIUM CHLORIDE 0.9% IRRIGATION SCH (19:25)
[2016-08-08] MEDS: GENTAMICIN IRRIGATION SCH (19:25)
[2016-08-08 20:00] VITALS: BP 136/82; PULSE 65; RESP 17; TEMP 97.1; O2SAT 99
[2016-08-08] MEDS: IBUPROFEN 600 MG TAB PO PRN (20:34)
[2016-08-08] MEDS ORDERED: PHARMACY ORDERED LAB XX ONE (22:45)
[2016-08-09] VITALS: BP 120/69; PULSE 57; RESP 16; TEMP 96.4; O2SAT 98
[2016-08-09 04:00] VITALS: BP 124/76; PULSE 60; RESP 16; TEMP 96.1; O2SAT 98
[2016-08-09] MEDS: PIPERACIL-TAZO 3.375 GM PREMIX 50 ML IV SCH ×4 (04:28→22:04)
[2016-08-09 08:00] VITALS: BP 154/71; PULSE 59; RESP 20; TEMP 97.7; O2SAT 97
[2016-08-09] MEDS: CHLORHEXIDINE GLUCONATE 0.12% 30 ML CUP OTHER SCH ×3 (09:00→17:04)
[2016-08-09] MEDS: SODIUM CHLORIDE 0.9% IRRIGATION SCH ×3 (09:00→17:17)
[2016-08-09] MEDS: DOCUSATE SODIUM 100 MG CAP PO SCH ×2 (09:00→20:59)
[2016-08-09] MEDS: SODIUM CHLORIDE 0.9% FLUSH 5 ML FLUSH FLUSH SCH ×2 (09:00→20:59)
[2016-08-09] MEDS: IRR IRRIGATION SCH ×3 (09:00→17:17)
[2016-08-09] MEDS: GENTAMICIN IRRIGATION SCH ×3 (09:00→17:17)
[2016-08-09] MEDS: MUPIROCIN 2% OINT 22 GM TUBE TOPICAL SCH ×4 (09:00→21:00)
[2016-08-09] MEDS: PROPRANOLOL HCL 20 MG TAB PO SCH ×2 (11:42→20:34)
[2016-08-09] MEDS: guaiFENesin E.R. 600 MG TAB PO SCH ×2 (11:42→20:59)
[2016-08-09] MEDS: NICOTINE 21 MG/24 HR PATCH TD SCH (11:43)
[2016-08-09] MEDS: VANCOMYCIN INJ 750 MG in SODIUM CHLOR 0.9% 250 ML INJ 250 ML IV SCH ×2 (11:48→22:42)
[2016-08-09 11:50] VITALS: BP 156/79; PULSE 62; RESP 20; TEMP 96.7; O2SAT 97
--- NOTE | 2016-08-09 12:57 | HHI.PR ---
Subjective Remarks No new complaints. Tolerating PO intake. Objective Vitals Vital Signs Date Time Temp Pulse Resp B/P Pulse Ox O2 Delivery O2 Flow Rate FiO2 08/09/16 08:00 97.7 59 20 154/71 97 08/09/16 04:00 96.1 60 16 124/76 98 08/09/16 00:00 96.4 57 16 120/69 98 08/08/16 20:00 97.1 65 17 136/82 99 08/08/16 16:00 97.3 63 16 132/65 97 08/08/16 08/08/16 08/09/16 15:00 23:00 07:00 Intake Total 240 ml 960 ml 240 ml Balance 240 ml 960 ml 240 ml Intake Oral 240 ml 960 ml 240 ml # Voids 2 4 2 # Bowel Movements 1 Result Diagram: 08/08/16 0700 08/07/16 0600 Imaging Last Impressions Neck CT 08/07/16 0600 Signed Impressions: Service Date/Time: Sunday, August 07, 2016 08:01 - CONCLUSION: Soft tissue swelling over the right orbital region. Mucoperiosteal thickening in the maxillary sinus on the right with what looks like bony destruction of the maxilla. MRI with contrast including sagittal and coronal projections would be of benefit for further evaluation. Alphonse Henry MD FACR Chest X-Ray 08/05/16 1837 Signed Impressions: Service Date/Time: Friday, August 05, 2016 19:27 - CONCLUSION: No acute disease. Jian Og MD Maxillofacial CT 08/05/16 0000 Signed Impressions: Service Date/Time: Friday, August 05, 2016 17:12 - CONCLUSION: Periorbital phlegmon/abscess with surrounding cellulitic changes. Extensive ipsilateral sinonasal disease. Destructive changes involving the maxilla as described. Leandro Aguila MD Objective Remarks GENERAL: This is a well-nourished, well-developed patient, in no apparent distress. CARDIOVASCULAR: Regular rate and rhythm without murmurs, gallops, or rubs. RESPIRATORY: Clear to auscultation. Breath sounds equal bilaterally. No wheezes , rales, or rhonchi. GASTROINTESTINAL: Abdomen soft, non-tender, nondistended. Normal active bowel sounds MUSCULOSKELETAL: Extremities without clubbing, cyanosis, or edema. NEURO: Alert & Oriented x4 to person, place, time, situation. Moves all ext x4 A/P Problem List: (1) Periorbital cellulitis of right eye Status: Acute Plan: - comgmt with ID and ENT - Pt was admitted with complaints of several days of progressive pain involving the right eye associated with swelling. - She also noted longstanding problems with chewing and pain primarily in her right maxilla and hard palate. - CT of the maxillary sinuses revealed periorbital phlegmon/abscess with surrounding cellulitic changes, extensive ipsilateral sinonasal disease and destructive changes involving the maxilla. - neck CT 08/07/16 Soft tissue swelling over the right orbital region. Mucoperiosteal thickening in the maxillary sinus on the right with what looks like bony destruction of the maxilla. MRI with contrast including sagittal and coronal projections would be of benefit for further evaluation - Facial MRI 08/08/16 - case d/w Radiology, no evidence of malignancy - formal report pending - Pt taken to OR by Dr. 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 (3) Anxiety Status: Chronic Plan: - Anxiolytics PRN (4) Hyperlipidemia Status: Chronic Plan: - Home meds continued (5) GERD (gastroesophageal reflux disease) Status: Chronic Plan: - PPI (6) Benign familial tremor Status: Acute Plan: - per pt propranolol 40mg BID at home - d/t bradycardia I have decreased the dose to 20mg BID - observe - pt may require further dose reduction Juliocesar Camarena DO Aug 09, 2016 12:57
[2016-08-09 15:45] VITALS: BP 133/74; PULSE 62; RESP 20; TEMP 97.3; O2SAT 99
[2016-08-09 20:00] VITALS: BP 133/76; PULSE 58; RESP 18; TEMP 97.1; O2SAT 97
[2016-08-09] MEDS: IBUPROFEN 600 MG TAB PO PRN (21:03)
[2016-08-10] VITALS: BP 131/81; PULSE 66; RESP 17; TEMP 97.7; O2SAT 99
[2016-08-10 04:00] VITALS: BP 127/81; PULSE 64; RESP 18; TEMP 96.4; O2SAT 98
[2016-08-10] MEDS: PIPERACIL-TAZO 3.375 GM PREMIX 50 ML IV SCH ×2 (05:34→10:52)
[2016-08-10 08:00] VITALS: BP 138/76; PULSE 58; RESP 16; TEMP 96.6; O2SAT 95
[2016-08-10] MEDS: DOCUSATE SODIUM 100 MG CAP PO SCH ×2 (09:00→21:00)
--- NOTE | 2016-08-10 09:28 | HHI.PR ---
Subjective Remarks doing well. no complaints Objective Vitals heent. 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 redness and swelling of maxilla right markedly improved heart reg lung cta abd s/nt Vital Signs Date Time Temp Pulse Resp B/P Pulse Ox O2 Delivery O2 Flow Rate FiO2 08/10/16 04:00 96.4 64 18 127/81 98 08/10/16 00:00 97.7 66 17 131/81 99 08/09/16 20:00 97.1 58 18 133/76 97 08/09/16 15:45 97.3 62 20 133/74 99 08/09/16 11:50 96.7 62 20 156/79 97 08/09/16 08/09/16 08/10/16 15:00 23:00 07:00 Intake Total 812 ml 480 ml 240 ml Balance 812 ml 480 ml 240 ml Intake Oral 462 ml 480 ml 240 ml IV Total 350 ml # Voids 5 2 2 # Bowel Movements 1 0 0 Result Diagram: 08/08/16 0700 08/10/16 0610 Imaging Last Impressions Neck CT 08/07/16 0600 Signed Impressions: Service Date/Time: Sunday, August 07, 2016 08:01 - CONCLUSION: Soft tissue swelling over the right orbital region. Mucoperiosteal thickening in the maxillary sinus on the right with what looks like bony destruction of the maxilla. MRI with contrast including sagittal and coronal projections would be of benefit for further evaluation. Alphonse Henry MD FACR Chest X-Ray 08/05/16 1837 Signed Impressions: Service Date/Time: Friday, August 05, 2016 19:27 - CONCLUSION: No acute disease. Jian Og MD Maxillofacial CT 08/05/16 0000 Signed Impressions: Service Date/Time: Friday, August 05, 2016 17:12 - CONCLUSION: Periorbital phlegmon/abscess with surrounding cellulitic changes. Extensive ipsilateral sinonasal disease. Destructive changes involving the maxilla as described. Leandro Aguila MD A/P Problem List: (1) Periorbital cellulitis of right eye Status: Acute Plan: - comgmt with ID and ENT - Pt was admitted with complaints of several days of progressive pain involving the right eye associated with swelling. - She also noted longstanding problems with chewing and pain primarily in her right maxilla and hard palate. - CT of the maxillary sinuses revealed periorbital phlegmon/abscess with surrounding cellulitic changes, extensive ipsilateral sinonasal disease and destructive changes involving the maxilla. - neck CT 08/07/16 Soft tissue swelling over the right orbital region. Mucoperiosteal thickening in the maxillary sinus on the right with what looks like bony destruction of the maxilla. MRI with contrast including sagittal and coronal projections would be of benefit for further evaluation - Facial MRI 08/08/16 - case d/w Radiology, no evidence of malignancy - formal report pending - Pt taken to OR by Dr. 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 discuss wound with ENT and OMFS - (2) Anxiety Status: Chronic Plan: - Anxiolytics PRN (3) Hyperlipidemia Status: Chronic Plan: - Home meds continued (4) GERD (gastroesophageal reflux disease) Status: Chronic Plan: - PPI (5) Benign familial tremor Status: Acute Plan: - per pt propranolol 40mg BID at home - d/t bradycardia I have decreased the dose to 20mg BID - observe - pt may require further dose reduction Jian Horan MD Aug 10, 2016 09:28
[2016-08-10] MEDS: GENTAMICIN IRRIGATION SCH ×3 (09:35→17:05)
[2016-08-10] MEDS: SODIUM CHLORIDE 0.9% IRRIGATION SCH ×3 (09:35→17:05)
[2016-08-10] MEDS: IRR IRRIGATION SCH ×3 (09:35→17:05)
[2016-08-10] MEDS: CHLORHEXIDINE GLUCONATE 0.12% 30 ML CUP OTHER SCH ×3 (09:36→17:05)
[2016-08-10] MEDS: NICOTINE 21 MG/24 HR PATCH TD SCH (09:37)
[2016-08-10] MEDS: PROPRANOLOL HCL 20 MG TAB PO SCH ×2 (09:37→21:20)
[2016-08-10] MEDS: SODIUM CHLORIDE 0.9% FLUSH 5 ML FLUSH FLUSH SCH ×2 (09:38→21:20)
[2016-08-10] MEDS: MUPIROCIN 2% OINT 22 GM TUBE TOPICAL SCH ×4 (09:38→21:27)
[2016-08-10] MEDS: guaiFENesin E.R. 600 MG TAB PO SCH ×2 (09:38→21:20)
[2016-08-10] MEDS: IBUPROFEN 600 MG TAB PO PRN ×2 (09:39→17:13)
[2016-08-10] MEDS: VANCOMYCIN INJ 750 MG in SODIUM CHLOR 0.9% 250 ML INJ 250 ML IV SCH (11:46)
[2016-08-10 12:00] VITALS: BP 148/83; PULSE 58; RESP 16; TEMP 96.1; O2SAT 99
[2016-08-10 16:00] VITALS: BP 151/86; PULSE 57; RESP 16; TEMP 97.3; O2SAT 99
[2016-08-10] MEDS: AMPICILLIN-SULBACTAM INJ 3 GM in SODIUM CHLORIDE 0.9% INJ 100 ML IV SCH ×2 (16:20→21:21)
[2016-08-10 20:00] VITALS: BP 162/71; PULSE 57; RESP 17; TEMP 98; O2SAT 98
[2016-08-11] VITALS: BP 146/75; PULSE 62; RESP 16; TEMP 97.5; O2SAT 99
[2016-08-11 04:00] VITALS: BP 130/67; PULSE 61; RESP 16; TEMP 97.3; O2SAT 99
[2016-08-11] MEDS: AMPICILLIN-SULBACTAM INJ 3 GM in SODIUM CHLORIDE 0.9% INJ 100 ML IV SCH ×3 (04:32→16:26)
[2016-08-11 08:00] VITALS: BP 145/85; PULSE 55; RESP 16; TEMP 98.2; O2SAT 100
[2016-08-11] MEDS: DOCUSATE SODIUM 100 MG CAP PO SCH (09:00)
[2016-08-11] MEDS: PROPRANOLOL HCL 20 MG TAB PO SCH (09:00)
--- NOTE | 2016-08-11 09:12 | HHI.PR ---
Subjective Remarks wants to go home. eating. ambulating. Objective Vitals heent. right upper maxilla with oroantral fistula no drainage. no facial redness or swelling heart reg lung cta abd s/nt ext no edema Vital Signs Date Time Temp Pulse Resp B/P Pulse Ox O2 Delivery O2 Flow Rate FiO2 08/11/16 04:00 97.3 61 16 130/67 99 08/11/16 00:00 97.5 62 16 146/75 99 08/10/16 20:00 98.0 57 17 162/71 98 08/10/16 16:00 97.3 57 16 151/86 99 08/10/16 12:00 96.1 58 16 148/83 99 08/10/16 08/10/16 08/11/16 15:00 23:00 07:00 Intake Total 790 ml 240 ml 240 ml Balance 790 ml 240 ml 240 ml Intake Oral 480 ml 240 ml 240 ml IV Total 310 ml # Voids 4 1 2 # Bowel Movements 1 0 Result Diagram: 08/08/16 0700 08/10/16 0610 Imaging Last Impressions Neck CT 08/07/16 0600 Signed Impressions: Service Date/Time: Sunday, August 07, 2016 08:01 - CONCLUSION: Soft tissue swelling over the right orbital region. Mucoperiosteal thickening in the maxillary sinus on the right with what looks like bony destruction of the maxilla. MRI with contrast including sagittal and coronal projections would be of benefit for further evaluation. Alphonse Henry MD FACR Chest X-Ray 08/05/16 1837 Signed Impressions: Service Date/Time: Friday, August 05, 2016 19:27 - CONCLUSION: No acute disease. Jian Og MD Maxillofacial CT 08/05/16 0000 Signed Impressions: Service Date/Time: Friday, August 05, 2016 17:12 - CONCLUSION: Periorbital phlegmon/abscess with surrounding cellulitic changes. Extensive ipsilateral sinonasal disease. Destructive changes involving the maxilla as described. Leandro Aguila MD A/P Problem List: (1) Periorbital cellulitis of right eye Status: Acute Plan: - comgmt with ID and ENT - Pt was admitted with complaints of several days of progressive pain involving the right eye associated with swelling. - She also noted longstanding problems with chewing and pain primarily in her right maxilla and hard palate. - CT of the maxillary sinuses revealed periorbital phlegmon/abscess with surrounding cellulitic changes, extensive ipsilateral sinonasal disease and destructive changes involving the maxilla. - neck CT 08/07/16 Soft tissue swelling over the right orbital region. Mucoperiosteal thickening in the maxillary sinus on the right with what looks like bony destruction of the maxilla. MRI with contrast including sagittal and coronal projections would be of benefit for further evaluation - Facial MRI 08/08/16 - case d/w Radiology, no evidence of malignancy - formal report pending - Pt taken to OR by Dr. 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 (2) Anxiety Status: Chronic Plan: - Anxiolytics PRN (3) Hyperlipidemia Status: Chronic Plan: - Home meds continued (4) GERD (gastroesophageal reflux disease) Status: Chronic Plan: - PPI (5) Benign familial tremor Status: Acute Plan: - per pt propranolol 40mg BID at home - d/t bradycardia I have decreased the dose to 20mg BID - observe - pt may require further dose reduction Jian Horan MD Aug 11, 2016 09:12
[2016-08-11] MEDS: SODIUM CHLORIDE 0.9% IRRIGATION SCH ×3 (09:35→17:49)
[2016-08-11] MEDS: GENTAMICIN IRRIGATION SCH ×3 (09:35→17:49)
[2016-08-11] MEDS: IRR IRRIGATION SCH ×3 (09:35→17:49)
[2016-08-11] MEDS: CHLORHEXIDINE GLUCONATE 0.12% 30 ML CUP OTHER SCH ×3 (09:35→17:50)
[2016-08-11] MEDS: SODIUM CHLORIDE 0.9% FLUSH 5 ML FLUSH FLUSH SCH (09:36)
[2016-08-11] MEDS: NICOTINE 21 MG/24 HR PATCH TD SCH (09:36)
[2016-08-11] MEDS: MUPIROCIN 2% OINT 22 GM TUBE TOPICAL SCH ×3 (09:37→17:50)
--- NOTE | 2016-08-11 10:01 | MB ---
cc: REJI SAEED DMD DATE OF CONSULTATION 08/10/2016 REASON FOR CONSULTATION Right oral antral fistula. HISTORY OF THE PRESENT ILLNESS This is a 66-year-old female who I have seen and examined this evening. Her nurse is at bedside. The patient reports approximately one year ago right maxillary mass molars were extracted. Apparently she had then some sinus communication. It was no treated. She was advised to go see an oral surgeon, but she never followed up. She has been battling sinusitis and sinus infections chronically during the one year and she is noncompliant. She showed up to the ER 5 days ago with swelling on the right side of the face, periorbital edema. She is already started on antibiotics, infectious disease involved. Dr. Newman went in and did an endoscopic debridement of the right paranasal sinuses, oral debridement and biopsy of the right maxillary sinus. This was done August 07. The patient denies any fever, chills, nausea, vomiting, any shortness of breath, any difficulty breathing or swallowing. Denies any fluid or food coming from out of her nose while she is eating through her mouth. Reports feeling much better. PAST MEDICAL HISTORY 1. History of anxiety. 2. Cataracts. 3. Gastroesophageal reflux disease. 4. Questionable asthma. PAST SURGICAL HISTORY 1. History of hysterectomy. 2. Cholecystectomy. 3. Partial mastectomy. MEDICATIONS As per report and the patient: 1. Ranitidine. 2. Fioricet. 3. Propranolol. 4. Clonazepam. 5. Crestor. ALLERGIES Denied. SOCIAL HISTORY Tobacco she smokes cigarettes, approximately one-half pack per day for at least 40 years. Denies any alcohol use. Reports occasional marijuana use, a couple of times a week, times 40 years. PHYSICAL EXAMINATION No gross facial edema noted. No periorbital edema that is noted. Especially on the right side of the face. The small, little stab incision on the right lower lid is healed. No tenderness to palpation of the face. Intraorally tissues pink and well-perfused. There is a small communication from inside the mouth on the vestibule region of the premolar region going into the right maxillary sinus. It is pink and healthy. I do not see any gross drainage coming out. There is no sign at this point signs of any infection, bleeding, any pus or edema. It appears to be extending into the right maxillary sinus. She has some generalized poor dentition. IMAGING CT scan of the facial bones shows several days ago right-sided cellulitis right face periorbital region. Bony destruction right maxilla. With multiple poor dentition. Fragments of small bones on the right maxilla. LABORATORY DATA White count today is 6.7 down from 11.8 on admission on the 4th. And white count on the 7th of 6.7. H&H is 10.7 and 32.2 with platelets of 345. MICROBIOLOGY The microbiology of his right infraorbital eyelid region comes back as acinetobacter lwoffii. Then right maxillary sinus came back with heavy growth of beta strep species. No anaerobes. Heavy growth of strep not A, B or D. Pathology is still pending. 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 Appears now is resolving, stable. PLAN The plan is to help the patient continue the antibiotics. She can follow up with me in one week at [facility], . We will plan to see if the sinus closes by itself, oral intra communication, if not we will intervene surgically to help that close. Early intervening so quickly earlier may also trap any bacteria or any discharges that may be coming from the sinuses into the nose and then into the maxillary sinus and then just drains out in to the mouth. Although I do not see anything at this point. The patient has been advised on no smoking. Did discuss with Dr. Horan. The patient is to also follow up with ENT. Reji Saeed DMD RRT/GEORGES /5:16 PM /9:51 AM LUI
[2016-08-11] MEDS ORDERED: PHARMACY ORDERED LAB XX ONE (10:45)
[2016-08-11 12:00] VITALS: BP 121/65; PULSE 60; RESP 16; TEMP 98.2; O2SAT 96
[2016-08-11] MEDS: IBUPROFEN 600 MG TAB PO PRN (13:59)
[2016-08-11 16:00] VITALS: BP 142/85; PULSE 63; RESP 16; TEMP 97.8; O2SAT 97
--- NOTE | 2016-08-11 16:03 | HHI.IDPN ---
Subjective Subjective Remarks Better edema, erythema near completely resolved ENT and OMFS input greatly appreciated MRI wo osteo ; cw reactive changes Antibiotics Unasyn Allergies: Coded Allergies: No Known Allergies (Unverified , 08/15/15) Objective . Vital Signs Date Time Temp Pulse Resp B/P Pulse Ox O2 Delivery O2 Flow Rate FiO2 08/11/16 12:00 98.2 60 16 121/65 96 08/11/16 08:00 98.2 55 16 145/85 100 08/11/16 04:00 97.3 61 16 130/67 99 08/11/16 00:00 97.5 62 16 146/75 99 08/10/16 20:00 98.0 57 17 162/71 98 08/10/16 16:00 97.3 57 16 151/86 99 08/10/16 08/10/16 08/11/16 15:00 23:00 07:00 Intake Total 790 ml 240 ml 240 ml Balance 790 ml 240 ml 240 ml Intake Oral 480 ml 240 ml 240 ml IV Total 310 ml # Voids 4 1 2 # Bowel Movements 1 0 . Laboratory Tests Test 08/10/16 06:10 Creatinine 0.98 MG/DL Estimat Glomerular Filtration 57 ML/MIN Rate Imaging Last Impressions Face MRI 08/08/16 0000 Signed Impressions: Service Date/Time: Monday, August 08, 2016 13:49 - CONCLUSION: Extensive sinus disease as described above. Maxilla changes are most likely reactive secondary to this without definite destructive change or lytic process with no enhancement or diffusion abnormality Delano Childs MD Neck CT 08/07/16 0600 Signed Impressions: Service Date/Time: Sunday, August 07, 2016 08:01 - CONCLUSION: Soft tissue swelling over the right orbital region. Mucoperiosteal thickening in the maxillary sinus on the right with what looks like bony destruction of the maxilla. MRI with contrast including sagittal and coronal projections would be of benefit for further evaluation. Alphonse Henry MD FACR Chest X-Ray 08/05/16 1837 Signed Impressions: Service Date/Time: Friday, August 05, 2016 19:27 - CONCLUSION: No acute disease. Jian Og MD Maxillofacial CT 08/05/16 0000 Signed Impressions: Service Date/Time: Friday, August 05, 2016 17:12 - CONCLUSION: Periorbital phlegmon/abscess with surrounding cellulitic changes. Extensive ipsilateral sinonasal disease. Destructive changes involving the maxilla as described. Leandro Aguila MD Physical Exam CONSTITUTIONAL/GENERAL: This is a thin female elderly patient, in no apparent distress. EYES: Pupils equal and round and reactive. Extraocular motions intact. No scleral icterus. No injection or drainage. Fundi not examined. Minimally edematous and erythematous R periorbital area ENT: Hearing grossly normal. Nose without bleeding or purulent drainage. Throat without visible erythema, exudates, masses, or lesions. Dentition is in a very poor condition with exposed bone R side of uper jaw Assessment & Plan Remarks (1) Periorbital cellulitis of right eye 2/2 chronic sinusitis in the settings of extensive cariotic teeth - no destructive bone process: Rec's: change Unasyn to augmentin 500 mg po tid and cont it for 2 more wks [address], MD Aug 11, 2016 16:02
[2016-08-11] MEDS ORDERED: AUGM500T7 PO (16:33)
[2016-08-11] MEDS ORDERED: PROP40TA3 PO (16:33)
--- NOTE | 2016-08-11 16:36 | HHI.DCPOC ---
Discharge Care Plan Diagnosis: (1) Oroantral fistula (2) Periorbital cellulitis of right eye (3) Anxiety (4) GERD (gastroesophageal reflux disease) (5) Benign familial tremor Goals to Promote Your Health * To prevent worsening of your condition and complications * To maintain your health at the optimal level Directions to Meet Your Goals Take your medications as prescribed Follow your dietary instruction Follow activity as directed Keep your appointments as scheduled Take your immunizations and boosters as scheduled If your symptoms worsen call your PCP, if no PCP go to Urgent Care Center or Emergency Room Smoking is Dangerous to Your Health. Avoid second hand smoke Call the 24-hour hour crisis hotline for domestic abuse at Jian Horan MD Aug 11, 2016 16:35
--- NOTE | 2016-08-31 09:04 | HHI.DS ---
Discharge Summary Admission Date Aug 05, 2016 at 18:46 Discharge Date: Aug 11, 2016 Admitting Diagnosis R periorbital cellulitis;phlegmon/abscesss;bone destruction Rmaxilla (1) Oroantral fistula Diagnosis: Principal (2) Periorbital cellulitis of right eye Diagnosis: Principal (3) Anxiety Diagnosis: Secondary (4) Hyperlipidemia Diagnosis: Secondary (5) GERD (gastroesophageal reflux disease) Diagnosis: Secondary (6) Benign familial tremor Diagnosis: Secondary Brief History Ms. Mccullough is a 66 y/o female with anxiety, hyperlipidemia, and GERD who presented to the ED at [facility] with complaints of several days of progressive pain involving the right eye associated with swelling. She states she has had problems in this area for the last year. At that time she states she had fallen and struck her face on a stairway and fractured her nose. This was never treated. Ever since that time she has had sinus symptoms. She reports that she had numerous rounds of antibiotics, throughout this time for her sinuses. She has noted also one year ago she underwent extraction of right upper molars and was advised by her dentist there was missing bone in her maxilla open to the sinuses. The wound was closed and the dentist referred her to an oral surgeon with concern that there was cancer present which had destroyed the bone. She did not see the oral surgeon. She notes problems with chewing and pain primarily in her right maxilla and hard palate. She denies any change in her vision or diplopia. She has a long history of tobacco use. CT of the maxillary sinuses revealed periorbital phlegmon/abscess with surrounding cellulitic changes, extensive ipsilateral sinonasal disease and destructive changes involving the maxilla. ENT has evaluated the patient and she has been started on Abx and steroids. Hospital Course - Pt was admitted with complaints of several days of progressive pain involving the right eye associated with swelling. - She also noted longstanding problems with chewing and pain primarily in her right maxilla and hard palate. - CT of the maxillary sinuses revealed periorbital phlegmon/abscess with surrounding cellulitic changes, extensive ipsilateral sinonasal disease and destructive changes involving the maxilla. - neck CT 08/07/16 Soft tissue swelling over the right orbital region. Mucoperiosteal thickening in the maxillary sinus on the right with what looks like bony destruction of the maxilla. MRI with contrast including sagittal and coronal projections would be of benefit for further evaluation - Facial MRI 08/08/16 - case d/w Radiology, no evidence of malignancy - Pt taken to OR by Dr. 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 Discussed with Dr Saeed. He will see her back in office and discuss repair of this area once infection controlled. Pt Condition on Discharge: Stable Discharge Disposition: Discharge Home Discharge Instructions DIET: Follow Instructions for: As Tolerated, No Restrictions Activities you can perform: Regular-No Restrictions Follow up Referrals: Ear Nose Throat - [address] newman Oral Maxillary Surgery - 1 Week with Jeremias Saeed DMD New Medications: Amoxicillin-Clavulanate (Augmentin) 500-125 mg Tab 500 MG PO Q8H Infection Days 14 Ref 0 TAB Changed Medications: Propranolol (Propranolol) 40 Mg Tab 20 MG PO Q12HR take 1/2 tablet q12hrs. tremors #0 Ref 0 TAB (Changed from: 40 MG ; 60) Continued Medications: Alprazolam (Xanax) 0.5 Mg Tab 0.5 MG PO Q8H PRN ANXIETY Ref 0 TAB Diwrptqnjm-Ugoakrxgrjwat-Dnfldeap (Fioricet) 50-300-40 Mg Cap 1 CAP PO HEADACHE Ref 0 CAP Jian Horan MD Aug 31, 2016 09:04
== END 2016-08-11 18:25 | disposition home or self-care (01) | DRG 131 ==
LOC: NETRI 11:21 → NEDA 18:46 → NEDH 19:23 → HOCA 20:37
PROVIDERS: ADMIT Hospitalist; ATTEND Hospitalist
PROC: 099 Ear, Nose, Sinus, Drainage (ICD-10-PCS; 2016-08-07)
PROC: 09BQ0ZX Excision of Right Maxillary Sinus, Open Approach, Diagnostic (ICD-10-PCS; 2016-08-07)
PROC: 099 Ear, Nose, Sinus, Drainage (ICD-10-PCS; 2016-08-07)
PROC: 0NBR0ZZ Excision of Maxilla, Open Approach (ICD-10-PCS; principal; 2016-08-07 17:06)
DX: J32.0 Chronic maxillary sinusitis (principal); L03.213 Periorbital cellulitis; M87.9 Osteonecrosis, unspecified; R00.1 Bradycardia, unspecified; J32.8 Other chronic sinusitis; K08.409 Partial loss of teeth, unspecified cause, unspecified class; E78.5 Hyperlipidemia, unspecified; F41.9 Anxiety disorder, unspecified; K21.9 Gastro-esophageal reflux disease without esophagitis; K57.90 Diverticulosis of intestine, part unspecified, without perforation or abscess without bleeding; H26.9 Unspecified cataract; G25.0 Essential tremor; F12.90 Cannabis use, unspecified, uncomplicated; F17.210 Nicotine dependence, cigarettes, uncomplicated; G43.909 Migraine, unspecified, not intractable, without status migrainosus; Z91.19 Patient's noncompliance with other medical treatment and regimen
CPT/HCPCS: 70487; 70491; 70543; 71010; 76937; 80048; 80202; 82565; 83735; 85025; 87015; 87070; 87077; 87102; 87116; 87186; 87205; 87206; 88305; 88311; 88312; 93005; A9579; J0295; J0696; J1100; J1580; J2250; J2543; J3010; J3370; J7050; Q9967

== ENCOUNTER 2016-09-20 15:30 | Inpatient (IN) | payer OTHER ==
[~2016-09-20] VITALS: Ht 152.4 cm; Wt 49.2 kg
[~2016-09-20 15:30] MED LIST changes: +ALPR.5 PO; -AMOX500T PO; -ASPI81TA45 PO; +AUGM500T7 PO; +BUTA1CAP PO; -VARE1PAK3 PO; -WELL150T PO
[2016-09-20 15:31] VITALS: BP 146/79; PULSE 68; RESP 15; TEMP 98.8
[2016-09-20 18:05] VITALS: BP 149/79; PULSE 54; RESP 20; O2SAT 97
[2016-09-20] MEDS ORDERED: CEFP250T PO (18:08)
[2016-09-20] MEDS ORDERED: PENI250T59 PO (18:08)
[2016-09-20] MEDS ORDERED: SODIUM CHLOR 0.9% 1000 ML INJ 1,000 ML IV SCH (18:17)
[2016-09-20] MEDS ORDERED: MORPHINE SULFATE 4 MG/ML INJ IV PUSH ONE ×2 (18:30→19:30)
[2016-09-20] MEDS ORDERED: CLINDAMYCIN INJ 600 MG in SODIUM CHLORIDE 0.9% INJ 100 ML IV ONE (18:30)
[2016-09-20] MEDS ORDERED: ONDANSETRON HCL 4 MG/2 ML VIAL IVP ONE (18:30)
[2016-09-20] MEDS ORDERED: INSULIN HUMAN NPH/R 70/30 1,000 UNITS/10 ML VIAL SQ ONE (18:30)
[2016-09-20] MEDS ORDERED: TETANUS/DIPHTHERIA TOXOID ADULT 0.5 ML VIAL IM ONE (18:30)
[2016-09-20] MEDS ORDERED: SODIUM CHLORIDE 0.9% FLUSH 5 ML FLUSH IVF PRN (18:30)
[2016-09-20 18:48] LABS: AUTOMATED NEUTROPHIL # 4.4 TH/MM3 (1.8-7.7); BASOPHIL # 0.1 TH/MM3 (0-0.2); BASOPHIL % 0.8 % (0.0-2.0); EOSINOPHIL # 0.1 TH/MM3 (0-0.4); HEMATOCRIT 39.2 % (35.0-46.0); HEMO FLAGS DIFF FINAL; LYMPH % 30.9 % (9.0-44.0); LYMPHOCYTE # 2.3 TH/MM3 (1.0-4.8); MEAN CELL VOLUME 87.1 FL (80.0-100.0); MEAN CORPUSCULAR HEMOGLOBIN 30.1 PG (27.0-34.0); MEAN CORPUSCULAR HGB CONC 34.6 % (32.0-36.0); NEUT % 59.3 % (16.0-70.0); PLATELET COUNT 277 TH/MM3 (150-450); RED CELL DISTRIBUTION WIDTH 14.4 % (11.6-17.2); WHITE BLOOD COUNT 7.4 TH/MM3 (4.0-11.0)
[2016-09-20 18:59] LABS: APTT (PATIENT) 25.9 SEC (24.3-30.1)
[2016-09-20 19:13] VITALS: BP 168/92; PULSE 68; RESP 20; O2SAT 98
[2016-09-20 19:14] LABS: ALKALINE PHOSPHATASE 159 U/L (45-117); ALT (GPT) 17 U/L (10-53); ANION GAP 7 MEQ/L (5-15); AST (GOT) 18 U/L (15-37); BICARBONATE 27.7 MEQ/L (21.0-32.0); BLOOD UREA NITROGEN 15 MG/DL (7-18); CHLORIDE 104 MEQ/L (98-107); GLOMERULAR FILTRATION RATE 64 ML/MIN (>89); POTASSIUM 4.3 MEQ/L (3.5-5.1); SODIUM (NA) 139 MEQ/L (136-145); TOTAL BILIRUBIN ADULT 0.2 MG/DL (0.2-1.0)
[2016-09-20] MEDS ORDERED: IOHEXOL 350 MG/ML 10 ML VIAL (for RAD DIAG) IV ONE (19:39)
--- NOTE | 2016-09-20 19:55 | PD ---
HPI Chief Complaint: Oral / Dental Pain or Problem Time Seen by Provider: 18:11 Travel History International Travel<30 days: No Contact w/Intl Traveler<30days: No Traveled to known affect area: No History of Present Illness HPI Patient is a 66-year-old female with history of anxiety, hyperlipidemia, GERD and right oral antral fistula who presents to emergency room with complaints of increased swelling to her upper lip as well as her mandible. Patient reports that she has been following up with Dr. Saeed with OMFS as well as Dr Newman with ENT, reports that she was told that she needed her whole upper teeth removed as she has been dealing with infections. Patient reports that she is currently waiting for a authorization from her insurance for this. Patient reports that she is currently completed a course of Pen V K along with cefazil for her tooth infection. Reports that 2 days ago, she noticed increased swelling to her upper lip and mandible. Reports that over the course of the past 2 days, her symptoms have been getting worse. Patient reports that she has increased pains to her upper teeth with swelling. [facility] Past Medical History Diminished Hearing: No Hypertension: Yes Migraines: Yes ?: Not Past Surgical History Appendectomy: Yes Section: Yes (x 1) Tonsillectomy: Yes Other Surgery: Yes (breast reduction, exploritory sx in abd) Social History Alcohol Use: No Tobacco Use: No Substance Use: Yes (Marijuana several times per weekUsed last ) Allergies-Medications (Allergen,Severity, Reaction): Coded Allergies: No Known Allergies (Unverified , 09/20/16) Reported Meds & Prescriptions Reported Meds & Active Scripts Active Propranolol (Propranolol HCl) 40 Mg Tab 20 Mg PO Q12HR take 1/2 tablet q12hrs. Reported Cefprozil 250 Mg Tab 250 Mg PO BID Penicillin Vk (Penicillin V Potassium) 250 Mg Tab 250 Mg PO Q6H Xanax (Alprazolam) 0.5 Mg Tab 0.5 Mg PO Q8H PRN Fioricet (Bvkmkiwncm-Fkibenmwaplat-Zsinrhgw) 50-300-40 Mg Cap 1 Cap PO Review of Systems General / Constitutional: No: Fever Eyes: No: Visual changes HENT: Positive: Other (upper lip and teeth pain), No: Headaches Cardiovascular: No: Chest Pain or Discomfort Respiratory: No: Shortness of Breath Gastrointestinal: No: Abdominal Pain Genitourinary: No: Dysuria Musculoskeletal: No: Pain Skin: No Rash Neurologic: No: Weakness Psychiatric: No: Depression Endocrine: No: Polydipsia Hematologic/Lymphatic: No: Easy Bruising Physical Exam Narrative GENERAL: mild distress SKIN: Warm and dry. HEAD: Atraumatic. Normocephalic. EYES: Pupils equal and round. No scleral icterus. No injection or drainage. ENT: No nasal bleeding or discharge. Patient with edema to upper lip, there is drainage from inside the mouth vestibule region of the premolar region NECK: Trachea midline. No JVD. CARDIOVASCULAR: Regular rate and rhythm. No murmur appreciated. RESPIRATORY: No accessory muscle use. Clear to auscultation. Breath sounds equal bilaterally. GASTROINTESTINAL: Abdomen soft, non-tender, nondistended. Hepatic and splenic margins not palpable. MUSCULOSKELETAL: No obvious deformities. No clubbing. No cyanosis. No edema. NEUROLOGICAL: Awake and alert. No obvious cranial nerve deficits. Motor grossly within normal limits. Normal speech. PSYCHIATRIC: Appropriate mood and affect; insight and judgment normal. Data Data Last Documented VS Vital Signs Date Time Temp Pulse Resp B/P Pulse Ox O2 Delivery O2 Flow Rate FiO2 09/20/16 19:13 68 20 168/92 98 09/20/16 18:05 Room Air 09/20/16 15:31 98.8 Orders Complete Blood Count With Diff (09/20/16 18:17) Comprehensive Metabolic Panel (09/20/16 18:17) Lactic Acid (09/20/16 18:17) Prothrombin Time / Inr (Pt) (09/20/16 18:17) Act Partial Throm Time (Ptt) (09/20/16 18:17) Iv Access Insert/Monitor (09/20/16 18:17) Morphine Inj (Morphine Inj) (09/20/16 18:30) Ondansetron Inj (Zofran Inj) (09/20/16 18:30) Sodium Chlor 0.9% 1000 Ml Inj (Ns 1000 M (09/20/16 18:17) Sodium Chloride 0.9% Flush (Ns Flush) (09/20/16 18:30) Ct Facial Bones W Iv Contrast (09/20/16 ) Clindamycin Inj (Cleocin Inj) (09/20/16 18:30) Tetanus/Diphtheria Tox Adult (Tetanus/Di (09/20/16 18:30) Insulin Human Nph/R 70/30 Inj (Novolin 7 (09/20/16 18:30) Morphine Inj (Morphine Inj) (09/20/16 19:30) Iohexol 350 Inj (Omnipaque 350 Inj) (09/20/16 19:39) Admit Order (Ed Use Only) (09/20/16 20:19) Labs Laboratory Tests Test 09/20/16 18:33 White Blood Count 7.4 TH/MM3 Red Blood Count 4.50 MIL/MM3 Hemoglobin 13.6 GM/DL Hematocrit 39.2 % Mean Corpuscular Volume 87.1 FL Mean Corpuscular Hemoglobin 30.1 PG Mean Corpuscular Hemoglobin 34.6 % Concent Red Cell Distribution Width 14.4 % Platelet Count 277 TH/MM3 Mean Platelet Volume 8.1 FL Neutrophils (%) (Auto) 59.3 % Lymphocytes (%) (Auto) 30.9 % Monocytes (%) (Auto) 7.0 % Eosinophils (%) (Auto) 2.0 % Basophils (%) (Auto) 0.8 % Neutrophils # (Auto) 4.4 TH/MM3 Lymphocytes # (Auto) 2.3 TH/MM3 Monocytes # (Auto) 0.5 TH/MM3 Eosinophils # (Auto) 0.1 TH/MM3 Basophils # (Auto) 0.1 TH/MM3 CBC Comment DIFF FINAL Differential Comment Prothrombin Time 11.0 SEC Prothromb Time International 1.0 RATIO Ratio Activated Partial 25.9 SEC Thromboplast Time Sodium Level 139 MEQ/L Potassium Level 4.3 MEQ/L Chloride Level 104 MEQ/L Carbon Dioxide Level 27.7 MEQ/L Anion Gap 7 MEQ/L Blood Urea Nitrogen 15 MG/DL Creatinine 0.89 MG/DL Estimat Glomerular Filtration 64 ML/MIN Rate Random Glucose 104 MG/DL Lactic Acid Level 1.0 mmol/L Calcium Level 9.5 MG/DL Total Bilirubin 0.2 MG/DL Aspartate Amino Transf 18 U/L (AST/SGOT) Alanine Aminotransferase 17 U/L (ALT/SGPT) Alkaline Phosphatase 159 U/L Total Protein 8.3 GM/DL Albumin 4.0 GM/DL MDM Medical Decision Making Medical Screen Exam Complete: Yes Emergency Medical Condition: Yes Interpretation(s) Vital Signs Date Time Temp Pulse Resp B/P Pulse Ox O2 Delivery O2 Flow Rate FiO2 09/20/16 19:13 68 20 168/92 98 09/20/16 18:05 54 20 149/79 97 Room Air 09/20/16 15:31 98.8 68 15 146/79 CBC & BMP Diagram 09/20/16 18:33 Differential Diagnosis tooth abscess, oral antral fistula Narrative Course Patient is a 66-year-old female who presents to emergency room with complaints of infection to her upper teeth. Patient is currently being followed by Dr. Liu as well as Dr. Saeed and Dr. Newman who both recommended that patient have all her upper teeth removed. Upon review of patient's prior admission on August 10, 2016, patient had a right oral antral fistula. Apparently, patient had her right maxillary molars removed about one year ago and she had sinus communication at that time. It was not treated and since then, she has been battling sinusitis and chronic sinus infections. She was told to follow-up with an oral surgeon but never followed up at that time. Patient was admitted to the hospital and was seen by Dr. Saeed on August 10 for evaluation of this oral antral fistula. At that time, patient was started on antibiotics, it was decided that they would see if the sinus closed by itself, if it didn't close by itself, then she would require surgical intervention. Ultimately, patient was sent home on antibiotics and followed up in the office. Patient has been on a course of antibiotics for the past 10 days - reports that her symptoms are getting worse. Labs as well as ct of facial bones ordered. IV antibiotics ordered as well Last Impressions Maxillofacial CT 09/20/16 0000 Signed Impressions: Service Date/Time: Tuesday, September 20, 2016 19:27 - CONCLUSION: 1. Increase in bony destructive changes of the maxilla predominantly anteriorly compared with August 05 is characteristic of osteomyelitis associated with extensive dental disease. 2. Near complete resolution of previous phlegmonous mass in the medial inferior right orbit. 3. Improvement in maxillary and sphenoid sinus disease. Partial opacification of the ethmoids persists. Flynn Velez MD Call made to for healthcare for admission, case will be reviewed with Dr. Saeed Critical Care Narrative Aggregate critical care time was 30 minutes. Time to perform other separately billable procedures was not included in the critical care time. My time did not include minutes spent treating any other patients simultaneously or on activities that did not directly contribute to the patient's treatment. The services I provided to this patient were to treat and/or prevent clinically significant deterioration that could result in: , decompensation, deterioration I provided critical care services requiring my management, as noted below: Chart data review, documentation time, medication orders and management, vital sign assessments/reviewing monitor data, ordering and reviewing lab tests, ordering and interpreting/reviewing x-rays and diagnostic studies, care of the patient and discussion of the patient with the admitting physicians. Physician Communication Physician Communication case reviewed with dr slater who accepts pt to [place] [facility] [place] with dr amaya Case reviewed with Dr. Amaya, IV antibiotics. Patient will need definitive treatment which would be extraction of her upper teeth. Discussed with me that patient most likely does not have osteomyelitis versus has abscess of the root of her teeth. Diagnosis Primary Impression: oral antral fistula Additional Impression: Osteomyelitis of maxilla Admitting Information Admitting Physician Requests: Admit Lashawn Lowery DO Sep 20, 2016 19:55
--- NOTE | 2016-09-20 20:05 | RADRPT ---
EXAM DATE/TIME: 09/20/2016 19:27 [place] COMPARISON: No previous studies available for comparison. INDICATIONS : Right upper lip swelling and mouth pain. IV CONTRAST: 70 cc Omnipaque 350 (iohexol) IV RADIATION DOSE: 36.6 CTDIvol (mGy) MEDICAL HISTORY : Hypertension. SURGICAL HISTORY : Appendectomy. ENCOUNTER: Initial ACUITY: 1 day PAIN SCALE: 5/10 LOCATION: Right facial TECHNIQUE: Volumetric scanning of the facial bones was performed. Using automated exposure control and adjustme nt of the mA and/or kV according to patient size, radiation dose was kept as low as reasonably achiev able to obtain optimal diagnostic quality images. FINDINGS: Comparison is August 05. Previous phlegmonous mass in the inferior medial right orbit has nearly comp letely resolved. Ethmoid sinus disease persists. There is less fluid in the right maxillary sinus wit h mucosal thickening persisting in both maxillary sinuses, likely chronic with mural thickening. Perm eative and destructive changes in the maxilla have progressed slightly since the August 05 exam jacinda cteristic of osteomyelitis. Mastoids remain clear. There is persistent mucosal thickening in the sphe noid sinus but previous sinus opacification is no longer present. Mandible is intact. CONCLUSION: 1. Increase in bony destructive changes of the maxilla predominantly anteriorly compared with August 05 is characteristic of osteomyelitis associated with extensive dental disease. 2. Near complete resolution of previous phlegmonous mass in the medial inferior right orbit. 3. Improvement in maxillary and sphenoid sinus disease. Partial opacification of the ethmoids persist natty Velez MD on September 20, 2016 at 19:57 Board Certified Radiologist. This report was verified electronically.
[2016-09-20] MEDS ORDERED: VANCOMYCIN INJ 750 MG in SODIUM CHLOR 0.9% 250 ML INJ 250 ML IV ONE (20:30)
[2016-09-20] MEDS ORDERED: PROPRANOLOL HCL 40 MG TAB PO SCH (21:00)
[2016-09-20] MEDS ORDERED: Vancomycin Consult Pharmacy 1 EA OTHER SCH (21:00)
--- NOTE | 2016-09-20 21:02 | HHI.HP ---
HPI Service [facility] Hospitalists Primary Care Physician Unknown Admission Diagnosis Right Maxilla Osteomyelitis Chief Complaint: progressive rt facial pain and swelling Travel History International Travel<30 Days: No Contact w/Intl Traveler <30 Da: No Traveled to Known Affected Are: No History of Present Illness Patient is a 66-year-old female who presents to emergency room with complaints of infection to her upper teeth. Patient is currently being followed by Dr. Newman as well as Dr. Saeed and Dr. Newman who both recommended that patient have all her upper teeth removed. Upon review of patient's prior admission on August 10, 2016, patient had a right oral antral fistula. She had pain ,swelling sinus problem with extensive sinus disease. Apparently, patient had her right maxillary molars removed about one year ago and she had sinus communication at that time. It was not treated and since then, she has been battling sinusitis and chronic sinus infections. She was told to follow-up with an oral surgeon but never followed up at that time. Patient was admitted to the hospital and was seen by Dr. Saeed on August 10 for evaluation of this oral antral fistula. At that time, patient was started on antibiotics, it was decided that they would see if the sinus closed by itself, if it didn't close by itself, then she would require surgical intervention. Ultimately, patient was sent home on antibiotics and followed up in the office. Patient has been on a course of antibiotics for the past 10 days - reports that her symptoms are getting worse. Patient will be admitted to observation and consult Dr. Saeed , The area is causing increase pain,foul smelling and increased swelling. Review of Systems Other facial pain and swelling since august Past Family Social History Past Medical History tremors multiple sinus infections and has been on several different antibiotics, anxiety Past Surgical History endoscopic debridement rt paranasal sinus,breast reduction Reported Medications inderal 20mg 1/2 tablet q `12 ,xanax .5 q 8 antibiotics Allergies: Coded Allergies: No Known Allergies (Unverified , 09/20/16) Family History mother pancreatic cancer father cad Social History smokes 1/2 ppd and smokes marijuana Physical Exam Vital Signs Vital Signs Date Time Temp Pulse Resp B/P Pulse Ox O2 Delivery O2 Flow Rate FiO2 09/20/16 19:13 68 20 168/92 98 09/20/16 18:05 54 20 149/79 97 Room Air 09/20/16 15:31 98.8 68 15 146/79 Physical Exam GENERAL: This is a well-nourished, well-developed patient, in no apparent distress. SKIN: No rashes, ecchymoses or lesions. Cool and dry. HEAD: Atraumatic. Normocephalic. No temporal or scalp tenderness. EYES: Pupils equal round and reactive. Extraocular motions intact. No scleral icterus. No injection or drainage. ENT: Nose without bleeding, purulent drainage or septal hematoma. Patient with edema to upper lip, there is drainage from inside the mouth vestibule region of the premolar region NECK: Trachea midline. No JVD or lymphadenopathy. Supple, nontender, no meningeal signs. CARDIOVASCULAR: Regular rate and rhythm without murmurs, gallops, or rubs. RESPIRATORY: Clear to auscultation. Breath sounds equal bilaterally. No wheezes , rales, or rhonchi. GASTROINTESTINAL: Abdomen soft, non-tender, nondistended. No hepato-splenomegaly , or palpable masses. No guarding. MUSCULOSKELETAL: Extremities without clubbing, cyanosis, or edema. No joint tenderness, effusion, or edema noted. No calf tenderness. Negative Homans sign bilaterally. NEUROLOGICAL: Awake and alert. Cranial nerves II through XII intact. Motor and sensory grossly within normal limits. Five out of 5 muscle strength in all muscle groups. Normal speech. Laboratory Laboratory Tests Test 09/20/16 18:33 White Blood Count 7.4 Red Blood Count 4.50 Hemoglobin 13.6 Hematocrit 39.2 Mean Corpuscular Volume 87.1 Mean Corpuscular Hemoglobin 30.1 Mean Corpuscular Hemoglobin 34.6 Concent Red Cell Distribution Width 14.4 Platelet Count 277 Mean Platelet Volume 8.1 Neutrophils (%) (Auto) 59.3 Lymphocytes (%) (Auto) 30.9 Monocytes (%) (Auto) 7.0 Eosinophils (%) (Auto) 2.0 Basophils (%) (Auto) 0.8 Neutrophils # (Auto) 4.4 Lymphocytes # (Auto) 2.3 Monocytes # (Auto) 0.5 Eosinophils # (Auto) 0.1 Basophils # (Auto) 0.1 CBC Comment DIFF FINAL Differential Comment Prothrombin Time 11.0 Prothromb Time International 1.0 Ratio Activated Partial 25.9 Thromboplast Time Sodium Level 139 Potassium Level 4.3 Chloride Level 104 Carbon Dioxide Level 27.7 Anion Gap 7 Blood Urea Nitrogen 15 Creatinine 0.89 Estimat Glomerular Filtration 64 Rate Random Glucose 104 Lactic Acid Level 1.0 Calcium Level 9.5 Total Bilirubin 0.2 Aspartate Amino Transf 18 (AST/SGOT) Alanine Aminotransferase 17 (ALT/SGPT) Alkaline Phosphatase 159 Total Protein 8.3 Albumin 4.0 Result Diagram: 09/20/163 09/20/16 1833 Imaging Last [address] 09/20/16 0000 Signed Impressions: Service Date/Time: Tuesday, September 20, 2016 19:27 - CONCLUSION: 1. Increase in bony destructive changes of the maxilla predominantly anteriorly compared with August 05 is characteristic of osteomyelitis associated with extensive dental disease. 2. Near complete resolution of previous phlegmonous mass in the medial inferior right orbit. 3. Improvement in maxillary and sphenoid sinus disease. Partial opacification of the ethmoids persists. Flynn Velez MD Course in er given pain meds and started on clindamycin and vancomycin IV Assessment and Plan Problem List: (1) Osteomyelitis of maxilla Status: Acute Plan: based on CT reading will consult dental and oral surgery patient has bben on multiple different antibiotics for now continue clindamycin and vancomycin obtain ID consult as well (2) Oroantral fistula Status: Acute Plan: seems to be improving on CT scan (3) Facial cellulitis Status: Chronic Plan: as above Assessment and Plan further plan as case progresses , Code Status full Discussed Condition With patient Guido Wesley MD Sep 20, 2016 21:02
[2016-09-20] MEDS ORDERED: BISACODYL 10 MG SUPP PR PRN (21:15)
[2016-09-20] MEDS ORDERED: ONDANSETRON HCL 4 MG/2 ML VIAL IVP PRN (21:15)
[2016-09-20] MEDS ORDERED: NALOXONE HCL 0.4 MG/ML AMP IV PRN (21:15)
[2016-09-20] MEDS: SODIUM CHLOR 0.45% 1000 ML INJ 1,000 ML IV SCH (22:54)
[2016-09-21 00:08] VITALS: BP 166/72; PULSE 64; RESP 16; O2SAT 96
[2016-09-21] MEDS: CLINDAMYCIN INJ 300 MG in SODIUM CHLORIDE 0.9% INJ 100 ML IV SCH ×2 (00:18→08:26)
[2016-09-21 05:54] VITALS: BP 142/77; PULSE 57; RESP 18; TEMP 97.3; O2SAT 94
[2016-09-21] MEDS: PROPRANOLOL HCL 20 MG TAB PO SCH ×2 (08:26→20:27)
[2016-09-21] MEDS: SODIUM CHLORIDE 0.9% FLUSH 5 ML FLUSH FLUSH SCH ×2 (08:26→20:27)
[2016-09-21 09:16] VITALS: BP 146/81; PULSE 69; RESP 18; TEMP 97.7; O2SAT 93
[2016-09-21] MEDS: MORPHINE SULFATE 4 MG/ML INJ IV PRN (11:49)
[2016-09-21 12:37] VITALS: BP 153/76; PULSE 62; RESP 18; TEMP 97.5; O2SAT 94
[2016-09-21] MEDS: SODIUM CHLOR 0.45% 1000 ML INJ 1,000 ML IV SCH (12:59)
[2016-09-21] MEDS: PIPERACIL-TAZO 3.375 GM PREMIX 50 ML IV SCH ×2 (12:59→18:19)
[2016-09-21] MEDS: VANCOMYCIN 1,000 MG/NS 250 ML IV SCH ×2 (13:53)
--- NOTE | 2016-09-21 14:20 | MB ---
cc: RUSTAM PATIÑO DDS DATE OF CONSULTATION: 09/21/2016 1952 CHIEF COMPLAINT My face is swollen and my teeth hurt. PAST MEDICAL HISTORY Ms. Mccullough is a 66-year-old female who presented to the emergency department last night with a complaint of facial swelling and painful teeth. The patient is known to Dr. Newman as well as Dr. Saeed, [facility] for previous admission for closure of a right oral antral fistula. At that visit the patient had pain and swelling and sinus issues and the patient had her right maxillary molars removed approximately a year ago and she had a sinus communication at that time. The patient was discharged from that visit and followed up to see Dr. Saeed on August 10 for evaluation of oral antral fistula. It was noted that the patient was started on antibiotics at that time to determine if the fistula would close on its own. Upon this visit the patient had facial swelling noted for approximately 2 days prior and at the time that she saw Dr. Saeed the patient was told that all her maxillary upper teeth would need to be removed because of periodontal involvement and also gross decay. The patient was given a treatment plan for extraction of all remaining maxillary teeth. The patient was seen this afternoon resting comfortably in bed, in no acute distress complaining of pain in the upper maxillary region. Denies any nausea, vomiting or fever at this time. PAST MEDICAL HISTORY Multiple sinus infections. PAST SURGICAL HISTORY Endoscopic debridement of right paranasal sinus and a breast reduction. MEDICATION Inderal and Xanax. ALLERGIES NO KNOWN DRUG ALLERGIES. FAMILY HISTORY Mother had a history of pancreatic cancer and father coronary artery disease. SOCIAL HISTORY The patient smokes about a half-a-pack per day and smokes marijuana. PHYSICAL EXAMINATION GENERAL: This is a well-nourished, well-developed patient, in no acute distress. SKIN: Skin is cool and dry. HEAD: Head is atraumatic and normocephalic. No temporal or scalp tenderness. EYES: Pupils equal, round and reactive to light and accommodation. Extraocular muscles are intact. NOSE: The nose is intact with no purulent drainage or septal hematoma. EARS: Ears are intact with no discharge. MAXILLOFACIAL EXAM: The patient does have some fullness in the middle third of the face specifically around the upper lip. The patient does have tenderness to palpation of the upper lip. Intraorally oral hygiene is poor. The patient does have periodontal involved teeth from teeth numbers seven to number twelve with a buccal abscess associated with teeth numbers seven, eight and nine. The patient also has a healing ulcerative lesion in the mid palate area. Floor of the mouth is not raised. The airway is patent. Mandibular teeth do not appear to be acutely infected at this time. NECK: Trachea is midline with no JVD or lymphadenopathy noted. IMAGING STUDIES Radiographically the patient is noted to have multiple non restorable teeth with periapical pathology noted on multiple teeth in the maxilla. ASSESSMENT This is a 66-year-old female who presents with multiple non restorable teeth with a buccal abscess associated with teeth numbers seven, eight and nine. PLAN The patient is to be kept n.p.o. after breakfast for surgical intervention for surgical extraction of all remaining maxillary teeth, to be performed by Dr. aSeed. Continue antibiotic therapy. Continue pain management. Continue medical management of the patient. SEAN Nolasco/SOUMYA /1:10 PM /1:46 PM
--- NOTE | 2016-09-21 14:32 | HHI.PR ---
Subjective Remarks pt c/o right cheek and upper lip swelling. Objective Vitals right cheek swelling/tenderness. upper lip swollen and tender. heart reg lung cta abd s/nt ext no edema Vital Signs Date Time Temp Pulse Resp B/P Pulse Ox O2 Delivery O2 Flow Rate FiO2 09/21/16 12:37 97.5 62 18 153/76 94 09/21/16 09:16 97.7 69 18 146/81 93 09/21/16 05:54 97.3 57 18 142/77 94 09/21/16 00:08 64 16 166/72 96 09/20/16 19:13 68 20 168/92 98 09/20/16 18:05 54 20 149/79 97 Room Air 09/20/16 15:31 98.8 68 15 146/79 Result Diagram: 09/20/16183209/20/161832 Imaging Last [address] 09/20/16 0000 Signed Impressions: Service Date/Time: Tuesday, September 20, 2016 19:27 - CONCLUSION: 1. Increase in bony destructive changes of the maxilla predominantly anteriorly compared with August 05 is characteristic of osteomyelitis associated with extensive dental disease. 2. Near complete resolution of previous phlegmonous mass in the medial inferior right orbit. 3. Improvement in maxillary and sphenoid sinus disease. Partial opacification of the ethmoids persists. Flynn Velez MD A/P Problem List: (1) Osteomyelitis of maxilla Status: Acute Plan: Pt was admitted in August for right maxillary sinusitis/oroantral fistula from poor dentition. grew acinitobacter Lwoffii and strep species not A,B,D. On aug 07 had endoscopic debridement of right paranasal sinuses and transoral debridement and bx of right max. sinus. Was seen by ent/omfs/ID. She was discharged Aug 11 to complete 14d more of augmentin. Her infectious sx's resolved and per recent discussion with omfs her oroantral fistula closed on it's own w/out surgery. Now presents with severe right face pain/swelling and CT imaging reveals concern for maxillary osteomyelitis. also extremely poor dentition and periodontal dz noted. Seen by OMFS and removal of all right maxillary teeth planned for tomorrow. hopefully culture samples or bone bx could be obtained during surgery to guide abx therapy. consult ID cont [email or web address] (2) Oroantral fistula Status: Acute Plan: see above Jian Horan MD Sep 21, 2016 14:32
[2016-09-21 16:30] VITALS: BP 162/75; PULSE 60; RESP 16; TEMP 97.8; O2SAT 91
[2016-09-21] MEDS: ACETAMINOPHEN/HYDROcodone 325 MG/5 MG TAB PO PRN ×2 (18:19→22:28)
[2016-09-21 22:08] VITALS: BP 160/72; PULSE 80; RESP 18; TEMP 98; O2SAT 97
[2016-09-22] MEDS: PIPERACIL-TAZO 3.375 GM PREMIX 50 ML IV SCH ×3 (00:04→12:30)
[2016-09-22] MEDS: ACETAMINOPHEN/HYDROcodone 325 MG/5 MG TAB PO PRN ×3 (04:40→13:07)
[2016-09-22 05:34] VITALS: BP 132/79; PULSE 76; RESP 18; TEMP 97.8; O2SAT 98
[2016-09-22] MEDS: SODIUM CHLORIDE 0.9% FLUSH 5 ML FLUSH FLUSH PRN (06:01)
[2016-09-22 08:28] VITALS: BP 139/71; PULSE 58; RESP 18; TEMP 97.4; O2SAT 97
--- NOTE | 2016-09-22 08:42 | HHI.PR ---
Subjective Remarks Pt is planned for surgery this afternoon She reports some minimal pain in the right jaw but otherwise no complaints Pt has remained afebrile. Objective Vitals Vital Signs Date Time Temp Pulse Resp B/P Pulse Ox O2 Delivery O2 Flow Rate FiO2 09/22/16 08:28 97.4 58 18 139/71 97 09/22/16 05:58 16 09/22/16 05:34 97.8 76 18 132/79 98 09/21/16 23:28 16 09/21/16 22:08 98.0 80 18 160/72 97 09/21/16 16:30 97.8 60 16 162/75 91 09/21/16 12:37 97.5 62 18 153/76 94 09/21/16 09:16 97.7 69 18 146/81 93 09/21/16 09/21/16 09/22/16 15:00 23:00 07:00 Intake Total 780 ml Balance 780 ml Intake Oral 200 ml IV Total 580 ml # Voids 3 Result Diagram: 09/20/16 1833 09/22/16 0558 Other Results Laboratory Tests Test 09/20/16 09/22/16 18:33 05:58 White Blood Count 7.4 TH/MM3 Red Blood Count 4.50 MIL/MM3 Hemoglobin 13.6 GM/DL Hematocrit 39.2 % Mean Corpuscular Volume 87.1 FL Mean Corpuscular Hemoglobin 30.1 PG Mean Corpuscular Hemoglobin 34.6 % Concent Red Cell Distribution Width 14.4 % Platelet Count 277 TH/MM3 Mean Platelet Volume 8.1 FL Neutrophils (%) (Auto) 59.3 % Lymphocytes (%) (Auto) 30.9 % Monocytes (%) (Auto) 7.0 % Eosinophils (%) (Auto) 2.0 % Basophils (%) (Auto) 0.8 % Neutrophils # (Auto) 4.4 TH/MM3 Lymphocytes # (Auto) 2.3 TH/MM3 Monocytes # (Auto) 0.5 TH/MM3 Eosinophils # (Auto) 0.1 TH/MM3 Basophils # (Auto) 0.1 TH/MM3 CBC Comment DIFF FINAL Differential Comment Prothrombin Time 11.0 SEC Prothromb Time International 1.0 RATIO Ratio Activated Partial 25.9 SEC Thromboplast Time Sodium Level 139 MEQ/L Potassium Level 4.3 MEQ/L Chloride Level 104 MEQ/L Carbon Dioxide Level 27.7 MEQ/L Anion Gap 7 MEQ/L Blood Urea Nitrogen 15 MG/DL Creatinine 0.89 MG/DL 0.72 MG/DL Estimat Glomerular Filtration 64 ML/MIN 82 ML/MIN Rate Random Glucose 104 MG/DL Lactic Acid Level 1.0 mmol/L Calcium Level 9.5 MG/DL Total Bilirubin 0.2 MG/DL Aspartate Amino Transf 18 U/L (AST/SGOT) Alanine Aminotransferase 17 U/L (ALT/SGPT) Alkaline Phosphatase 159 U/L Total Protein 8.3 GM/DL Albumin 4.0 GM/DL Imaging Last [address] 09/20/16 0000 Signed Impressions: Service Date/Time: Tuesday, September 20, 2016 19:27 - CONCLUSION: 1. Increase in bony destructive changes of the maxilla predominantly anteriorly compared with August 05 is characteristic of osteomyelitis associated with extensive dental disease. 2. Near complete resolution of previous phlegmonous mass in the medial inferior right orbit. 3. Improvement in maxillary and sphenoid sinus disease. Partial opacification of the ethmoids persists. Flynn Velez MD Objective Remarks Genera: NAD, AAOx3 Chest: CTA bilaterally Cardiac: Regular Abd: +BS, soft ND/NT Ext: No edema A/P Problem List: (1) Osteomyelitis of maxilla Status: Acute Plan: - Pt was admitted in August for right maxillary sinusitis/oroantral fistula from poor dentition. Cultures at that time grew Acinetobacter Lwoffi and strep species not A,B,D. On Aug.07 she had endoscopic debridement of right paranasal sinuses and transoral debridement and bx of right maxillary sinus. - Pt was seen by ENT/OMFS/ID. - She was discharged Aug 11 to complete 14 more days of Augmentin. - Her infectious sx's resolved and per recent discussion with omfs her oroantral fistula closed on it's own w/out surgery. - Now presents with severe right face pain/swelling and CT imaging reveals concern for maxillary osteomyelitis. Also extremely poor dentition and periodontal dz noted. - Seen by OMFS and removal of all right maxillary teeth planned for today. Hopefully culture samples or bone bx could be obtained during surgery to guide abx therapy. - ID consulted - Cont Vanco/Zosyn - DVT prophylaxis (2) Oroantral fistula Status: Acute Plan: - See above Assessment and Plan Patient examined. Assessment and plan formulated with Lashawn Tamayo PA-C. I agree with the above. right maxillary osteo. poor dentition. to OR today for dental extractions and biopsy. cont abx. ID consulted. Lashawn Tamayo Sep 22, 2016 08:42 Jian Horan MD Sep 22, 2016 12:05
[2016-09-22] MEDS: PROPRANOLOL HCL 20 MG TAB PO SCH ×2 (08:54→22:38)
[2016-09-22] MEDS: SODIUM CHLORIDE 0.9% FLUSH 5 ML FLUSH FLUSH SCH ×2 (08:54→22:40)
--- NOTE | 2016-09-22 09:46 | MB ---
cc: REJI SAEED [facility], DATE OF CONSULTATION 09/21/2016 REASON FOR CONSULTATION Infection of the upper teeth/swollen lip. I have seen and examined this patient this evening. Her nurse is at bedside. This is a 66-year-old female who in August was treated by Dr. Newman for right maxillary sinus infection, he did an intraoral approach into the maxillary vestibule on the right side and into the maxillary sinus. The patient was then subsequently discharged for evaluation of her oral antral fistula in my office and at that time it was noted that fistula was closing and just about closed. The patient denied any communication into the maxillary sinus. However, she had extensive dental decay on the maxillary sinus region, pain pathology. The patient was advised to have the teeth extracted. The patient has failed to do so. Now she presents back with a swelling on the upper lip at this time and pain in that region. PAST MEDICAL HISTORY 1. Sinus infection 2. Dental extractions. 3. Tremors the patient reports since the sinus infection. 4. Anxiety PAST SURGICAL HISTORY 1. Dental extractions 2. Sinus surgery on the right maxilla. MEDICATIONS Inderal ALLERGIES Denied SOCIAL HISTORY Smokes a half a pack per day of tobacco. Denies any alcohol. Occasionally smokes marijuana. PHYSICAL EXAM VITAL SIGNS: Temperature is 97.8, pulse is 60, respirations 16, blood pressure 152/75, oxygen saturation of 91%. EXAMINATION The patient has a swelling on the upper lip. It is tender to palpation. Intraorally, generalized decayed teeth on the maxilla with mobility of these teeth. The patient has tenderness secondary to the teeth moving. Also, the left upper lip is swollen with edema on the maxillary vestibule region. The upper right maxillary sinus or antral fistula appears to be closed, but secondary to the swelling hard to examine and also the patient having discomfort with gentle examine in the region. Noted in the center of the hard palate appears to be an ulcerated region, but its flat and well-circumscribed. It could be secondary to this infection that is coming around from all his teeth. Previous biopsy was noted from the right maxilla showed osteomyelitis. There is no elevation of floor of the mouth to the tongue. There is no deviation of the uvula. No neck edema that is noted. Trachea is at midline. CT scan of the facial bones shows bony destruction on the maxilla region that is noted. This area periodontally involved teeth with periapical radiolucency. Generalized decayed dentition, poor dentition. LABORATORY DATA White count is 7.4 with an H&H of 13.6, 39.2 with platelets of 277. PT 11, INR is 1.0, 25.2 is the PTT. IMPRESSION AND PLAN This is a 66-year-old female with a longstanding history of periodontally involved teeth, poor dentition with now all the decayed maxillary teeth with mobility, pain and discomfort leading to multiple periapical abscesses, swollen lip, maxillary lip, vestibular region, with destruction of the bone. There is also an ulcerated region in the center of the soft palate that could be secondary to all these decayed teeth. The patient was not able to have all his teeth extracted previously as he was advised to do so. Plan is to take the patient to the main operating room tomorrow evening extract all maxillary teeth, biopsy the tissue/bone, I&D the maxillary lip/vestibular region,. The patient is aware that she will not have dentures for several weeks. The benefits, risks and indication of the procedure, procedure in detail and options of no treatment were all discussed with this patient. The risks are not limited to any postop pain, infection, bleeding, damage to the adjacent soft tissue, hard tissue anesthesia complications, further surgeries as required, all questions and concerns were addressed. I also recommended an infectious diseases consult which has already been done. Reji Saeed DMD RRT/MITESH /9:20 PM /9:21 AM LUI
[2016-09-22 11:37] VITALS: BP 147/69; PULSE 58; RESP 17; TEMP 97.5; O2SAT 97
[2016-09-22] MEDS ORDERED: PROPOFOL 200 MG/20 ML AMP IV ONE (12:00)
[2016-09-22] MEDS ORDERED: DICLOFENAC SODIUM 37.5 MG/ML VIAL IV PUSH ONE (12:00)
[2016-09-22] MEDS ORDERED: ONDANSETRON HCL 4 MG/2 ML VIAL IV PUSH ONE (12:00)
[2016-09-22] MEDS: VANCOMYCIN 1,000 MG/NS 250 ML IV SCH ×2 (13:07)
[2016-09-22] MEDS ORDERED: NICOTINE 14 MG/24 HR PATCH TD ONE (14:30)
--- NOTE | 2016-09-22 15:21 | PD.ID.CON ---
History of Present Illness Service ID Consult Requested By Dr Horan Reason for Consult maxillary osteo Primary Care Physician Unknown Diagnoses: History of Present Illness 66 o female known to me from previous admission 66 yo female denies PMH except for tobaccoism present in August with Periorbital cellulitis of right eye 2/2 chronic maxillary sinusitis in the settings of extensive cariotic teeth No destructive bone process was found on MRI, She underwent endoscopic debridement and bx of maxillary sinus; culture grew Acinetobacter lwoffi and strep spp, however later the bone came back with exstensive acute osteo. Pt was d/c on oral abx abd had 2 additional courses because every time she stopped abx her swelling will get worse She was adviced to extract the cariotic tooth but failed to do so SHe is readmitted with persistent worsenng swelling redness and pain involving her R face and upper lip as well as a non healing ulcer on her palate Her MRI showed increase in bony destructive changes of the maxilla predominantly anteriorly compared with August 05 is characteristic of osteomyelitis associated with extensive dental disease, near complete resolution of previous phlegmonous mass in the medial inferior right orbit and improvement in maxillary and sphenoid sinus disease, while partial opacification of the ethmoids persists. She was started on broad spectrum abx and is sheduled for complete teeth extraction today with bx of her palatel lesion \She has no fever and no leukocytosis Review of Systems Except as stated in HPI: all other systems reviewed are Neg Past Family Social History Allergies: Coded Allergies: No Known Allergies (Unverified , 09/20/16) Past Medical History Anxiety Asthma/COPD per EHR records. Pt denies this and is not on any medications. Cataracts Diverticulosis Familial tremor GERD Tobacco use Past Surgical History Hysterectomy Cholecystectomy Lumpectomy/partial mastectomy in 2006 Active Ordered Medications Active Ordered Medications Medications where reviewed in EMR Antibiotics Include: vancomycin zosyn Family History Father with hx of CAD Mother with hx of pancreatic cancer Social History Just quit Tobacco 1 mo ago; prior use: 1/2ppd x 40+ years (+)Marijuana use, smokes marijuana 2-3 times per week, 40+ years Denies any alcohol use Physical Exam Vital Signs Vital Signs Date Time Temp Pulse Resp B/P Pulse Ox O2 Delivery O2 Flow Rate FiO2 09/22/16 11:37 97.5 58 17 147/69 97 09/22/16 08:28 97.4 58 18 139/71 97 09/22/16 05:58 16 09/22/16 05:34 97.8 76 18 132/79 98 09/21/16 23:28 16 09/21/16 22:08 98.0 80 18 160/72 97 09/21/16 16:30 97.8 60 16 162/75 91 Physical Exam CONSTITUTIONAL/GENERAL: This is a thin female elderly patient, in no apparent distress. SKIN: No jaundice, rashes, or lesions.. Skin temperature appropriate. Not diaphoretic. HEAD: Atraumatic. Normocephalic. EYES: Pupils equal and round and reactive. Extraocular motions intact. No scleral icterus. No injection or drainage. Fundi not examined. Mildly erythemaotus and edematous R cheek Upper lip is swollen and extremely tender Shallow ulcerative lesion about 1.5 cm seen on hard palate Extensive caries and gingivitis notes ENT: Hearing grossly normal. Nose without bleeding or purulent drainage. Throat without visible erythema, exudates, masses, or lesions. Dentition is in a very poor condition with exposed bone R side of uper jaw NECK: Trachea midline. Supple, nontender. No palpable thyroid enlargement or nodularity. CARDIOVASCULAR: Regular rate and rhythm without murmurs, gallops, or rubs. No JVD. Peripheral pulses symmetric. RESPIRATORY/CHEST: Symmetric, unlabored respirations. Clear to auscultation. Breath sounds equal bilaterally. No wheezes, rales, or rhonchi. GASTROINTESTINAL: Abdomen soft, non-tender, nondistended. No hepato-splenomegaly , or palpable masses. No guarding. Bowel sounds present. GENITOURINARY: Without palpable bladder distension. MUSCULOSKELETAL: Extremities without clubbing, cyanosis, or edema. No joint tenderness or effusion noted. No calf tenderness. No mottling or clubbing. LYMPHATICS: No palpable cervical or supraclavicular adenopathy. NEUROLOGICAL: Awake and alert. Motor and sensory grossly within normal limits. Follows commands. Normal speech Moves all extremities. PSYCHIATRIC: No obvious anxiety/depression. no apparent hallucinations or other psychotic thought process. Laboratory Laboratory Tests Test 09/22/16 05:58 Creatinine 0.72 Estimat Glomerular Filtration 82 Rate Result Diagram: 09/20/16 1833 09/22/16 0558 Imaging Last Impressions Maxillofacial CT 09/20/16 0000 Signed Impressions: Service Date/Time: Tuesday, September 20, 2016 19:27 - CONCLUSION: 1. Increase in bony destructive changes of the maxilla predominantly anteriorly compared with August 05 is characteristic of osteomyelitis associated with extensive dental disease. 2. Near complete resolution of previous phlegmonous mass in the medial inferior right orbit. 3. Improvement in maxillary and sphenoid sinus disease. Partial opacification of the ethmoids persists. Flynn Velez MD Assessment and Plan Assessment and Plan Maxillary osteo 2/2 extensive dental caries , polimicrobial, perviously included Acinetobacter, strep Non complaince with recommended tx (extraction of cariotic teeth) Failed abx 2/2 no source control (pt did not extract cariotic teeth) Palatal lesion, ro malignancy - agree with surgical tx plan - change current abx to Unasyn - anticipate iv abx upon dc - will fu op clx Karoline Fortune MD Sep 22, 2016 15:21
[2016-09-22 15:33] VITALS: BP 165/74; PULSE 58; RESP 17; TEMP 97.2; O2SAT 96
[2016-09-22] MEDS: AMPICILLIN-SULBACTAM INJ 3 GM in SODIUM CHLORIDE 0.9% INJ 100 ML IV SCH ×2 (15:44→22:37)
[2016-09-22] MEDS ORDERED: CHLORHEXIDINE GLUCONATE 0.12% 30 ML CUP ONE (18:52)
[2016-09-22] MEDS ORDERED: LIDOCAINE 2%/EPINEPHrine 1:100,000 30ML MDV ONE (18:52)
[2016-09-22] MEDS ORDERED: BACITRACIN TOP OINT 15 GM TUBE ONE (18:52)
[2016-09-22] MEDS ORDERED: MIDAZOLAM HCL 2 MG/2 ML VIAL ONE (19:02)
[2016-09-22] MEDS ORDERED: FAMOTIDINE 20 MG/2 ML VIAL ONE (19:02)
[2016-09-22] MEDS ORDERED: ACETAMINOPHEN 1000 MG/100 ML VIAL IV ONE (19:02)
[2016-09-22] MEDS ORDERED: MICROFIBRILLAR COLLAGEN HEMOSTAT 1 GM PKT ONE (19:20)
[2016-09-22] MEDS ORDERED: BUPIVACAINE/EPINEPHRINE 0.5% PF 30 ML VIAL ONE (19:20)
[2016-09-22] MEDS ORDERED: MICROFIBRILLAR COLLAGEN HEMOSTAT 70 X 35 MM BANDAGE ONE (19:20)
[2016-09-22] MEDS ORDERED: SUGAMMADEX SODIUM 200 MG/2 ML VIAL IV PUSH ONE ×2 (19:47)
[2016-09-22] MEDS ORDERED: LIDOCAINE 1%/EPINEPHrine 1:100,000 SOLN 30 ML VIAL ONE (19:56)
[2016-09-22] MEDS ORDERED: *LABETALOL HCL 100 MG/20 ML VIAL PERIprocedural Use ONLY ONE (20:09)
[2016-09-22] MEDS ORDERED: *morphine SULFATE 8 MG/ML PERIprocedure ONLY ONE (20:10)
[2016-09-22] MEDS ORDERED: fentaNYL CITRATE 250 MCG/5 ML AMP ONE (20:17)
--- NOTE | 2016-09-22 20:17 | HHI.PR ---
Immediate Post Op Note Procedure Date: Sep 22, 2016 Pre Op Diagnosis: loose/periodontally involved, decayed maxillary teeth 2-7-4-10-11-12 osteomyelitis maxilla upper lip edema/ulceration noted palate Post Op Diagnosis: kamila Surgeon: Jeremias Saeed Lay Up Operator(s): andrea mathur Procedure: extraction of teeth 3-2-5-10-11-12 biopsy of maxillary lip/gingiva/bone and palate exam under anesthesia Complications: none Specimen(s) removed: soft tissue from maxillary lip/bone/gingiva/palate Estimated blood loss: minimal Anesthesia: General, Local (2%lidocaine with 1:100,000 epi x 3cc .05%, marcaine w 1:200,000 epi 7cc) Drains: None Patient to: PACU Patient Condition: Good Date/Time of Procedure: SEE SURGICAL CARE RECORD Jeremias Saeed DMD Sep 22, 2016 20:17
[2016-09-22] MEDS ORDERED: *MEPERIDINE 25 MG INJ VIAL PERIprocedural Use ONLY ONE (20:30)
[2016-09-22] MEDS ORDERED: *ENALAPRILAT 1.25 MG/ML VIAL PERIprocedural Use ONLY ONE (20:31)
[2016-09-22] MEDS: REMOVE OLD NICODERM (NICOTINE) PATCH TD SCH (21:00)
[2016-09-22] MEDS ORDERED: methylPREDNISolone SOD SUCC 125 MG/2 ML VIAL IV ONE (21:00)
[2016-09-22 22:00] VITALS: BP 134/64; PULSE 68; RESP 16; TEMP 96.7; O2SAT 97
[2016-09-22] MEDS: ALPRAZolam 0.5 MG TAB PO PRN (22:37)
[2016-09-23] VITALS (7 sets, daily range): BP systolic 112–158; BP diastolic 58–88; PULSE 64–70; RESP 16–18; TEMP 95.5–98.2; O2SAT 95–100
[2016-09-23] MEDS: AMPICILLIN-SULBACTAM INJ 3 GM in SODIUM CHLORIDE 0.9% INJ 100 ML IV SCH ×4 (04:12→21:23)
[2016-09-23] MEDS: SODIUM CHLORIDE 0.9% FLUSH 5 ML FLUSH FLUSH PRN ×2 (04:12→04:22)
[2016-09-23] MEDS: MORPHINE SULFATE 4 MG/ML INJ IV PRN (04:22)
--- NOTE | 2016-09-23 07:56 | HHI.PR ---
Subjective Remarks POD 1 s/p biopsy maxillary lip/gingiva/bone/palate s/p extraction of teeth # 7-12 pt seen and examined , aaoX3, nad tolerating po dr hull at bedside Objective Vital Signs Date Time Temp Pulse Resp B/P Pulse Ox O2 Delivery O2 Flow Rate FiO2 09/23/16 05:22 16 09/23/16 04:30 96.6 66 16 123/58 95 09/23/16 01:30 96.2 67 16 116/66 95 09/22/16 22:00 96.7 68 16 134/64 97 09/22/16 21:25 69 15 98 Nasal Cannula 2 09/22/16 21:20 15 09/22/16 21:15 98.1 70 15 148/82 98 Nasal Cannula 2 09/22/16 21:00 68 15 153/89 96 Nasal Cannula 2 09/22/16 20:45 69 15 165/88 95 Nasal Cannula 2 09/22/16 20:30 70 15 181/90 99 Nasal Cannula 3 09/22/16 20:15 72 15 183/87 98 Nasal Cannula 3 09/22/16 20:15 15 09/22/16 20:08 97.9 75 16 195/84 100 Nasal Cannula 4 09/22/16 15:33 97.2 58 17 165/74 96 09/22/16 11:37 97.5 58 17 147/69 97 09/22/16 08:28 97.4 58 18 139/71 97 I/O 09/22/16 09/22/16 09/22/16 09/23/16 09/23/16 09/23/16 07:00 15:00 23:00 07:00 15:00 23:00 Intake Total 370 ml 850 ml 120 ml Balance 370 ml 850 ml 120 ml Intake Oral 20 ml 120 ml IV Total 350 ml 50 ml Other 800 ml # Voids 2 0 1 Result Diagram: 09/20/16 1833 09/22/16 0558 Objective Remarks biopsy/extraction sites maxilla stable hemostatic, tissue pink and well perfused wound margins well approximated, sutures intact incision on maxillary lip in OR - no pus noted decreased tenderness to exam Assessment and Plan Assessment and Plan POD 1 s/p biopsy maxillary lip/gingiva/bone/palate s/p extraction of teeth # 7-12 path pending advance to mechanically soft diet will follow Jeremias Saeed DMD Sep 23, 2016 07:56
--- NOTE | 2016-09-23 08:12 | MP ---
cc: REJI SAEED DMD [facility], DATE OF SURGERY 09/22/2016 PREOPERATIVE DIAGNOSIS Loose/periodontally involved decayed maxillary teeth numbers 7,8,9,10,11 and 12. Also, osteomyelitis maxilla, also upper lip edema/ulceration noted on the palate. POSTOPERATIVE DIAGNOSIS Loose/periodontally involved decayed maxillary teeth numbers 7,8,9,10,11 and 12. Also, osteomyelitis maxilla, also upper lip edema/ulceration noted on the palate. PROCEDURE 1. Extraction of teeth numbers 7,8,9,10,11,12. 2. Biopsy of the maxillary lip, gingiva, bone and palate. 3. Examination under anesthesia. ANESTHESIA General, also 2% lidocaine with 1:100,000 epinephrine 3 cc and also 0.5% Marcaine with 1:200,000 epinephrine of 7 cc SURGEON Reji Saeed, JIMENEZ EMAIL ADMINISTRATOR Peng Pan COMPLICATIONS None SPECIMENS Soft tissue from the maxillary lip, bone, gingiva and palate. ESTIMATED BLOOD LOSS Minimal DISPOSITION The patient tolerated the procedure well, extubated, and taken to the PACU. INDICATIONS FOR PROCEDURE This is a 66-year-old female who was previously diagnosed with osteomyelitis by Dr. Newman in August of 2016. Her maxillary sinus on the right side was all opacified and infected. He went into the right maxillary vestibule into the mouth and clean it up. The biopsy of the bone at that time was taken and came back as osteomyelitis. The patient did follow-up in my office and at that time the oral antral fistula was closed. It was noted that she all these decayed teeth number 7,8,9,10,11 and 12 periodontally involved mobility. The patient was advised to get the teeth extracted. She failed to do so. Now she presents to the ER with swelling of the upper lip and all this with periodontally involved decayed teeth. She has tenderness to palpation of the upper lip and mobility of all these teeth. Aspiration risk especially the 7-10. In order to restore proper form and function, it is necessary that she undergo the above listed procedures. Benefits, risks, indication of the procedure, procedure in detail and the options of no treatment were discussed with this patient. The risks are not limited to any postop pain, infection, bleeding, damage to the adjacent soft tissue, hard tissue. Anesthesia complications includes , infections, further surgeries as required. The patient is aware that she will be edentulous for several weeks and then she will have to go see a dentist to make dentures. PROCEDURE IN DETAIL The patient was met perioperatively. All questions and concerns were addressed. Consent is signed on the chart. The patient was taken to operating suite #7. The patient was placed on the table in the supine position. She was intubated orally. The eyes were taped shut and all pressure points were padded. At this time, a time-out was taken to identify the patient, the site, the procedure, and surgeon were all in agreement. The patient was then prepped with Betadine solution. I went to the sink to scrub and came back to wear the sterile attire. The patient was draped in the normal sterile fashion. Bite block was placed gently in the right side of the mouth. Back of the throat was suctioned with a moistened Ray-Xuan used as a throat pack. 2% lidocaine with 1:100,000 epinephrine was injected in the maxillary vestibule and over the hard palate. Examination under anesthesia at this point shows severely once again. Periodontally involved teeth 7-11 and then 12. Very loose especially 7-10. The gingiva all looks very poor health. The maxillary lip looks very hard and is firm and edematous, but very hard and firm. Several areas of ulceration is noted when I idalia the lip and there is no proper gingiva even holding up the teeth number 7,8 and 9. The gingiva tissues looked very inflamed. Then again on the center of the palate is a smaller depression like a crater. The oral antral fistula appears to be closed on the right maxillary vestibule. A 15 blade was used to make an incision over the gingival from tooth #12 to tooth number 7 in that region. Elevator forceps were used to extract these teeth. The site was all curetted. I did a biopsy of the maxillary upper lip, maxillary gingiva, a piece of that bone and then also down to the palate. It was sent for biopsy. The site was all curetted with all inflammatory granulation tissue. Bovie was used to stop any bleeders. The site was all irrigated with saline solution. That was all they could see so much bony destruction noted on the anterior maxillary region. The site was all now packed with Avitene and closed with 3-0 chromic suture were applicable. Good hemostasis noted. At the end of the procedure, 0.5% Marcaine with 1:200,000 epinephrine was injected in the maxillary vestibule in the palatal region too. The back of the throat was suctioned. The throat pack was removed. Bite block was removed. The patient tolerated the procedure well. No complications noted. Extubated and taken to the PACU. All sponge and needle counts were all accounted for. Reji Saeed DMD RRT/MITESH /8:13 PM /7:55 AM LUI
--- NOTE | 2016-09-23 08:25 | HHI.PR ---
Subjective Remarks doing ok. Objective Vitals right facial swelling less abd s/nt ext no edema Vital Signs Date Time Temp Pulse Resp B/P Pulse Ox O2 Delivery O2 Flow Rate FiO2 09/23/16 05:22 16 09/23/16 04:30 96.6 66 16 123/58 95 09/23/16 01:30 96.2 67 16 116/66 95 09/22/16 22:00 96.7 68 16 134/64 97 09/22/16 21:25 69 15 98 Nasal Cannula 2 09/22/16 21:20 15 09/22/16 21:15 98.1 70 15 148/82 98 Nasal Cannula 2 09/22/16 21:00 68 15 153/89 96 Nasal Cannula 2 09/22/16 20:45 69 15 165/88 95 Nasal Cannula 2 09/22/16 20:30 70 15 181/90 99 Nasal Cannula 3 09/22/16 20:15 72 15 183/87 98 Nasal Cannula 3 09/22/16 20:15 15 09/22/16 20:08 97.9 75 16 195/84 100 Nasal Cannula 4 09/22/16 15:33 97.2 58 17 165/74 96 09/22/16 11:37 97.5 58 17 147/69 97 09/22/16 08:28 97.4 58 18 139/71 97 09/22/16 09/22/16 09/23/16 15:00 23:00 07:00 Intake Total 370 ml 850 ml 120 ml Balance 370 ml 850 ml 120 ml Intake Oral 20 ml 120 ml IV Total 350 ml 50 ml Other 800 ml # Voids 2 0 1 Result Diagram: 09/20/16 1833 09/22/16 0558 Imaging Last [address] 09/20/16 0000 Signed Impressions: Service Date/Time: Tuesday, September 20, 2016 19:27 - CONCLUSION: 1. Increase in bony destructive changes of the maxilla predominantly anteriorly compared with August 05 is characteristic of osteomyelitis associated with extensive dental disease. 2. Near complete resolution of previous phlegmonous mass in the medial inferior right orbit. 3. Improvement in maxillary and sphenoid sinus disease. Partial opacification of the ethmoids persists. Flynn Velez MD A/P Problem List: (1) Osteomyelitis of maxilla Status: Acute Plan: - Pt was admitted in August for right maxillary sinusitis/oroantral fistula from poor dentition. Cultures at that time grew Acinetobacter Lwoffi and strep species not A,B,D. On Aug.07 she had endoscopic debridement of right paranasal sinuses and transoral debridement and bx of right maxillary sinus. - Pt was seen by ENT/OMFS/ID. - She was discharged Aug 11 to complete 14 more days of Augmentin. - Her infectious sx's resolved and per recent discussion with omfs her oroantral fistula closed on it's own w/out surgery. - Now presents with severe right face pain/swelling and CT imaging reveals concern for maxillary osteomyelitis. Also extremely poor dentition and periodontal dz noted. - Seen by OMFS. Discussed with Dr Saeed. s/p maxillary teeth removal and bx of bone.lip. palate -ID following -cont iv abx and f/u cx's/bx..plan for picc and outpt iv abx. (2) Oroantral fistula Status: Acute Plan: - See above Jian Horan MD Sep 23, 2016 08:25
[2016-09-23] MEDS: PROPRANOLOL HCL 20 MG TAB PO SCH ×2 (09:12→21:22)
[2016-09-23] MEDS: NICOTINE 14 MG/24 HR PATCH TD SCH (09:13)
[2016-09-23] MEDS: CHLORHEXIDINE GLUCONATE 0.12% 30 ML CUP OTHER SCH ×2 (09:13→21:22)
[2016-09-23] MEDS: SODIUM CHLORIDE 0.9% FLUSH 5 ML FLUSH FLUSH SCH ×2 (09:23→21:00)
[2016-09-23] MEDS: ACETAMINOPHEN/HYDROcodone 325 MG/5 MG TAB PO PRN ×3 (10:25→21:23)
[2016-09-23] MEDS ORDERED: PHARMACY ORDERED LAB XX ONE (13:45)
--- NOTE | 2016-09-23 17:50 | HHI.IDPN ---
Subjective Subjective Remarks sp surgery yda: total removal of upper teeth bx of upper lip Antibiotics Unasyn Allergies: Coded Allergies: No Known Allergies (Unverified , 09/20/16) Objective . Vital Signs Date Time Temp Pulse Resp B/P Pulse Ox O2 Delivery O2 Flow Rate FiO2 09/23/16 16:00 98.2 70 16 158/88 100 09/23/16 12:00 95.5 64 16 112/70 98 09/23/16 09:15 96 Nasal Cannula 2.00 09/23/16 05:22 16 09/23/16 04:30 96.6 66 16 123/58 95 09/23/16 01:30 96.2 67 16 116/66 95 09/22/16 22:00 96.7 68 16 134/64 97 09/22/16 21:25 69 15 98 Nasal Cannula 2 09/22/16 21:20 15 09/22/16 21:15 98.1 70 15 148/82 98 Nasal Cannula 2 09/22/16 21:00 68 15 153/89 96 Nasal Cannula 2 09/22/16 20:45 69 15 165/88 95 Nasal Cannula 2 09/22/16 20:30 70 15 181/90 99 Nasal Cannula 3 09/22/16 20:15 72 15 183/87 98 Nasal Cannula 3 09/22/16 20:15 15 09/22/16 20:08 97.9 75 16 195/84 100 Nasal Cannula 4 09/22/16 09/22/16 09/23/16 15:00 23:00 07:00 Intake Total 370 ml 850 ml 120 ml Balance 370 ml 850 ml 120 ml Intake Oral 20 ml 120 ml IV Total 350 ml 50 ml Other 800 ml # Voids 2 0 1 . Laboratory Tests Test 09/22/16 05:58 Creatinine 0.72 MG/DL Estimat Glomerular Filtration 82 ML/MIN Rate Imaging Last Impressions Maxillofacial CT 09/20/16 0000 Signed Impressions: Service Date/Time: Tuesday, September 20, 2016 19:27 - CONCLUSION: 1. Increase in bony destructive changes of the maxilla predominantly anteriorly compared with August 05 is characteristic of osteomyelitis associated with extensive dental disease. 2. Near complete resolution of previous phlegmonous mass in the medial inferior right orbit. 3. Improvement in maxillary and sphenoid sinus disease. Partial opacification of the ethmoids persists. Flynn Velez MD Physical Exam CONSTITUTIONAL/GENERAL: This is a thin female elderly patient, in no apparent distress. SKIN: No jaundice, rashes, or lesions.. Skin temperature appropriate. Not diaphoretic. HEAD: Atraumatic. Normocephalic. EYES: Pupils equal and round and reactive. Extraocular motions intact. No scleral icterus. No injection or drainage. Fundi not examined. 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
[2016-09-23] MEDS: REMOVE OLD NICODERM (NICOTINE) PATCH TD SCH (21:00)
[2016-09-23] MEDS: ALPRAZolam 0.5 MG TAB PO PRN (23:30)
[2016-09-24] VITALS (8 sets, daily range): BP systolic 129–177; BP diastolic 67–98; PULSE 58–77; RESP 16–18; TEMP 95.6–98.3; O2SAT 94–96
[2016-09-24] MEDS: ACETAMINOPHEN/HYDROcodone 325 MG/5 MG TAB PO PRN ×4 (04:14→20:14)
[2016-09-24] MEDS: AMPICILLIN-SULBACTAM INJ 3 GM in SODIUM CHLORIDE 0.9% INJ 100 ML IV SCH ×4 (04:14→21:34)
[2016-09-24] MEDS: CHLORHEXIDINE GLUCONATE 0.12% 30 ML CUP OTHER SCH ×2 (09:17→20:16)
[2016-09-24] MEDS: PROPRANOLOL HCL 20 MG TAB PO SCH ×2 (09:17→20:16)
[2016-09-24] MEDS: NICOTINE 14 MG/24 HR PATCH TD SCH (09:18)
[2016-09-24] MEDS: SODIUM CHLORIDE 0.9% FLUSH 5 ML FLUSH FLUSH SCH ×2 (09:18→20:17)
--- NOTE | 2016-09-24 09:33 | HHI.PR ---
Subjective Remarks doing ok. less face swelling. Objective Vitals heart reg lung cta abd s/nt ext no edema Vital Signs Date Time Temp Pulse Resp B/P Pulse Ox O2 Delivery O2 Flow Rate FiO2 09/24/16 08:00 95.6 73 16 147/86 95 09/24/16 04:00 97.0 62 18 145/69 94 09/24/16 00:00 97.1 68 16 129/67 95 09/23/16 20:00 97.2 70 18 158/74 97 09/23/16 18:36 100 Nasal Cannula 2.00 09/23/16 16:00 98.2 70 16 158/88 100 09/23/16 12:00 95.5 64 16 112/70 98 09/23/16 09/23/16 09/24/16 15:00 23:00 07:00 Intake Total 571 ml 480 ml 120 ml Balance 571 ml 480 ml 120 ml Intake Oral 360 ml 480 ml 120 ml IV Total 211 ml # Voids 5 1 1 # Bowel Movements 1 Result Diagram: 09/20/16 1833 09/22/16 0558 Imaging Last [address] 09/20/16 0000 Signed Impressions: Service Date/Time: Tuesday, September 20, 2016 19:27 - CONCLUSION: 1. Increase in bony destructive changes of the maxilla predominantly anteriorly compared with August 05 is characteristic of osteomyelitis associated with extensive dental disease. 2. Near complete resolution of previous phlegmonous mass in the medial inferior right orbit. 3. Improvement in maxillary and sphenoid sinus disease. Partial opacification of the ethmoids persists. Flynn Velez MD A/P Problem List: (1) Osteomyelitis of maxilla Status: Acute Plan: - Pt was admitted in August for right maxillary sinusitis/oroantral fistula from poor dentition. Cultures at that time grew Acinetobacter Lwoffi and strep species not A,B,D. On Aug.07 she had endoscopic debridement of right paranasal sinuses and transoral debridement and bx of right maxillary sinus. - Pt was seen by ENT/OMFS/ID. - She was discharged Aug 11 to complete 14 more days of Augmentin. - Her infectious sx's resolved and per recent discussion with omfs her oroantral fistula closed on it's own w/out surgery. - Now presents with severe right face pain/swelling and CT imaging reveals concern for maxillary osteomyelitis. Also extremely poor dentition and periodontal dz noted. - Seen by OMFS. Discussed with Dr Saeed. s/p maxillary teeth removal and bx of bone.lip. palate -ID following -cont iv abx and f/u cx's/bx..plan for picc and outpt iv abx. picc today (2) Oroantral fistula Status: Acute Plan: - See above Jian Horan MD Sep 24, 2016 09:33
[2016-09-24] MEDS: ALPRAZolam 0.5 MG TAB PO PRN (12:37)
--- NOTE | 2016-09-24 15:46 | RADRPT ---
EXAM DATE/TIME: 09/24/2016 15:09 [facility] COMPARISON: CHEST SINGLE AP, August 05, 2016, 19:27. INDICATIONS : Picc line placement. MEDICAL HISTORY : Hypertension. SURGICAL HISTORY : None. ENCOUNTER: Initial ACUITY: 4 - 6 days PAIN SCORE: 0/10 LOCATION: Bilateral chest FINDINGS: Portable AP view of the chest demonstrates a normal-sized cardiac silhouette. Right upper extremity P ICC distal tip is in the SVC. No effusion, consolidation, or pneumothorax is identified. Bones and so ft tissues demonstrate no acute finding. CONCLUSION: Right upper extremity PICC distal tip in appropriate position within the SVC. Leandro Lopez MD on September 24, 2016 at 15:43 Board Certified Radiologist. This report was verified electronically.
[2016-09-24] MEDS: REMOVE OLD NICODERM (NICOTINE) PATCH TD SCH (21:00)
[2016-09-25] VITALS (10 sets, daily range): BP systolic 143–186; BP diastolic 77–97; PULSE 57–71; RESP 15–20; TEMP 95.6–98.1; O2SAT 94–97
[2016-09-25] MEDS: ACETAMINOPHEN/HYDROcodone 325 MG/5 MG TAB PO PRN ×3 (00:18→19:36)
[2016-09-25] MEDS: AMPICILLIN-SULBACTAM INJ 3 GM in SODIUM CHLORIDE 0.9% INJ 100 ML IV SCH ×4 (04:31→21:31)
[2016-09-25] MEDS ORDERED: amLODIPine BESYLATE 5 MG TAB PO SCH (05:10)
[2016-09-25] MEDS: cloNIDine HCL 0.1 MG TAB PO PRN (06:44)
[2016-09-25] MEDS: SODIUM CHLORIDE 0.9% FLUSH 5 ML FLUSH FLUSH SCH ×2 (09:00→19:40)
--- NOTE | 2016-09-25 09:01 | HHI.PR ---
Subjective Remarks c/o pain at surgical sites. Objective Vitals heart reg lungcta abd s/nt ext no edema right face less swollen lip swollen and exudate on inside upper lip mucosa. crusting. sutures noted. Vital Signs Date Time Temp Pulse Resp B/P Pulse Ox O2 Delivery O2 Flow Rate FiO2 09/25/16 08:00 96.8 58 16 151/87 96 09/25/16 06:43 165/77 Manual Cuff/Auscultation 09/25/16 04:55 170/90 Automatic Cuff 09/25/16 04:00 95.6 57 15 174/92 94 09/25/16 02:24 20 09/25/16 00:00 96.9 60 15 186/97 96 09/24/16 20:00 97.7 65 16 151/94 95 09/24/16 17:40 96 21 09/24/16 16:00 98.3 58 16 177/98 96 09/24/16 12:00 97.4 77 16 133/78 96 09/24/16 10:05 95 09/24/16 09/24/16 09/25/16 15:00 23:00 07:00 Intake Total 365 ml 240 ml 368 ml Balance 365 ml 240 ml 368 ml Intake Oral 240 ml 240 ml 240 ml IV Total 125 ml 128 ml # Voids 3 1 2 # Bowel Movements 0 Result Diagram: 09/22/16 0558 Imaging Last [address] 09/20/16 0000 Signed Impressions: Service Date/Time: Tuesday, September 20, 2016 19:27 - CONCLUSION: 1. Increase in bony destructive changes of the maxilla predominantly anteriorly compared with August 05 is characteristic of osteomyelitis associated with extensive dental disease. 2. Near complete resolution of previous phlegmonous mass in the medial inferior right orbit. 3. Improvement in maxillary and sphenoid sinus disease. Partial opacification of the ethmoids persists. Flynn Velez MD A/P Problem List: (1) Osteomyelitis of maxilla Status: Acute Plan: - Pt was admitted in August for right maxillary sinusitis/oroantral fistula from poor dentition. Cultures at that time grew Acinetobacter Lwoffi and strep species not A,B,D. On Aug.07 she had endoscopic debridement of right paranasal sinuses and transoral debridement and bx of right maxillary sinus. - Pt was seen by ENT/OMFS/ID. - She was discharged Aug 11 to complete 14 more days of Augmentin. - Her infectious sx's resolved and per recent discussion with omfs her oroantral fistula closed on it's own w/out surgery. - Now presents with severe right face pain/swelling and CT imaging reveals concern for maxillary osteomyelitis. Also extremely poor dentition and periodontal dz noted. - Seen by OMFS. Discussed with Dr Saeed. s/p maxillary teeth removal and bx of bone.lip. palate -ID following -cont iv abx and f/u cx's/bx..plan for picc and outpt iv abx. picc -add ensure. she is having trouble eating due to mouth pain. (2) Oroantral fistula Status: Acute Plan: - See above (3) HTN (hypertension) Status: Acute Plan: add lisinipril and prn clonidine. (4) Benign familial tremor Status: Chronic Plan: on bb Jian Horan MD Sep 25, 2016 09:01
[2016-09-25] MEDS: CHLORHEXIDINE GLUCONATE 0.12% 30 ML CUP OTHER SCH ×2 (09:11→19:35)
[2016-09-25] MEDS: NICOTINE 14 MG/24 HR PATCH TD SCH (09:11)
[2016-09-25] MEDS: PROPRANOLOL HCL 20 MG TAB PO SCH ×2 (09:11→19:36)
--- NOTE | 2016-09-25 11:16 | HHI.PR ---
Addendum to Inpatient Note Additional Information dw Dr Marroquin - pathologist pt's path is cw malignancy , likely large celll lymphoma ? superimposed infection will cont abx for now will need hem-onc consult Karoline Fortune MD Sep 25, 2016 11:16
--- NOTE | 2016-09-25 14:17 | HHI.PR ---
Subjective Remarks POD 3 s/p biopsy maxillary lip/gingiva/bone/palate s/p extraction of teeth # 7-12 pt seen and examined , aaoX3, nad tolerating po reports feeling better, less pain Objective Vital Signs Date Time Temp Pulse Resp B/P Pulse Ox O2 Delivery O2 Flow Rate FiO2 09/25/16 12:00 96.5 69 16 143/89 97 09/25/16 10:19 94 21 09/25/16 08:00 96.8 58 16 151/87 96 09/25/16 06:43 165/77 Manual Cuff/Auscultation 09/25/16 04:55 170/90 Automatic Cuff 09/25/16 04:00 95.6 57 15 174/92 94 09/25/16 02:24 20 09/25/16 00:00 96.9 60 15 186/97 96 09/24/16 20:00 97.7 65 16 151/94 95 09/24/16 17:40 96 21 09/24/16 16:00 98.3 58 16 177/98 96 I/O 09/24/16 09/24/16 09/24/16 09/25/16 09/25/16 09/25/16 07:00 15:00 23:00 07:00 15:00 23:00 Intake Total 120 ml 365 ml 240 ml 368 ml 240 ml Balance 120 ml 365 ml 240 ml 368 ml 240 ml Intake Oral 120 ml 240 ml 240 ml 240 ml 240 ml IV Total 125 ml 128 ml # Voids 1 3 1 2 2 # Bowel Movements 0 Result Diagram: 09/22/16 0558 Objective Remarks biopsy/extraction sites maxilla stable hemostatic, tissue pink and well perfused granulation tissues noted lip edema decreased, no signs of infection bleeding pus wound margins well approximated, sutures intact decreased tenderness to exam PICC line r arm Assessment and Plan Assessment and Plan POD 3 s/p biopsy maxillary lip/gingiva/bone/palate s/p extraction of teeth # 7-12 path pending continue mechanically soft diet improving clinically will follow Jeremias Saeed DMD Sep 25, 2016 14:17
[2016-09-25] MEDS: LISINOPRIL 10 MG TAB PO SCH (19:36)
[2016-09-25] MEDS: REMOVE OLD NICODERM (NICOTINE) PATCH TD SCH (19:42)
[2016-09-25] MEDS: ALPRAZolam 0.5 MG TAB PO PRN (21:29)
[2016-09-25] MEDS: MORPHINE SULFATE 4 MG/ML INJ IV PRN (22:44)
--- NOTE | 2016-09-25 23:35 | MB ---
cc: EMILIA MARTINES,RAFY Keene M.D. DATE OF CONSULTATION 09/25/16 [address] Emilia Martines CHIEF COMPLAINT Dr. Martines requests a consultation for Ms. Mccullough regarding newly diagnosed maxillary diffuse large B-cell lymphoma. HISTORY OF PRESENT ILLNESS Ms. Mccullough is a 66-year-old woman with a history of anxiety, cataract, diverticulosis, familial tremor, gastroesophageal reflux disease and chronic tobacco use. She was in her usual state of health when she noticed increasing fatigue. She developed pain in her right upper teeth. She has had a dentist was remove three upper teeth in the right upper maxilla. She broke her nose walking up the stairs several years before. She has always had trouble breathing out of the right nostril. Symptoms have become worse along side with the right upper molar difficulty. She had a bone destructive lesion and was referred to oral surgeon by her dentist. In the meantime, her course was complicated by right orbital pain and swelling. She was admitted to the hospital on August 06, 2016 with abscess and destruction of the bone in te right upper maxilla and right periorbital cellulitis. She was seen by Dr. Newman on August 07, 2016 and performed endoscopic debridement of the right paranasal sinus, transoral debridement and biopsy of the right maxillary sinus. The final pathology from that showed bone with extensive acute osteomyelitis, acutely and chronically inflamed and ulcerated squamous mucosa which attached bacterial aggregate, seen by infectious disease and was treated for the periorbital cellulitis of the right eye secondary to chronic sinusitis. She had an additional two weeks of Augmentin three times a day. She was followed by Dr. Newman and Dr. Saeed who recommended all her upper teeth be removed. She presented back to the hospital on September 20, 2016 with pain, swelling, sinus problems. Her symptoms became worse. She had increasing pain, foul swelling. She is unable to eat. She reports a weight loss of about 15 pounds. She is unable to finish her shift at her work. 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 She had imaging study on the that showed increased bony destructive changes in the maxilla compared to August 05. There is near complete resolution of phlegmonous mass in the medial inferior orbit. There is improvement in maxillary and sphenoid sinus disease with partial opacification of the ethmoid that persists. She underwent extraction of teeth #7, 8, 9 10, 11, 12. She had a biopsy of the maxillary lip, gingiva, bone and palate. She had examination under anesthesia by Dr. Saeed. The final pathology on September 22 showed diffuse large B-cell lymphoma with undermining squamous mucosa. There is necrotic bone with predominately crushed atypical lymphoid population. The lymphoma was CD20 positive. BCL 2 positive, BCL6 positive. Hematology/Oncology is consulted for the newly diagnosed maxillary lymphoma. Ms. Mccullough complains mainly of pain in her left cheek. She has pain over her lip. She has a difficult time becoming comfortable from her recent surgery and biopsy. She is able to feel the ulceration in the roof of her mouth. She has trouble eating because of pain. On further questioning, she has had night sweats which she attributes to her vasomotor symptoms. She has gone through menopause many years ago however. She has the weight loss as described. She has increasing fatigue. She denies any overt fevers. She has been afebrile during her hospitalization. There are some parts of her periorbital cellulitis that are improved. She still has pain and swelling over the right cheek. She denies any changes in bowel habits. She has had last Pap smear more than five years ago. Her last mammogram was more than five years ago. She reports no abnormalities in that. She denies any changes in bowel habits. No urinary complaints. The rest of her review of systems is negative. PAST MEDICAL HISTORY 1. Chronic tobacco use 2. Sinus infection, 3. Anxiety, 4. Tremor, 5. Questionable asthma. PAST SURGICAL HISTORY 1. Endoscopic debridement right paranasal sinus 2. Breast surgery 3. Tooth extraction. FAMILY HISTORY Mother of kidney cancer in her 60s. Father of Alzheimer's at an old age in his 80s. SOCIAL HISTORY She quit smoking recently. She smoked half a pack a day. She smokes marijuana. Denies any alcohol or illicit drug use. ALLERGIES NO KNOWN DRUG ALLERGIES. MEDICATIONS Current, 1. Lisinopril 2. Clonidine p.r.n. 3. Nicotine patch 4. Peridex. 5. Ampicillin. 6. Sulbactam. 7. [place]. 8. Propranolol. 9. Morphine p.r.n. 10. Xanax p.r.n. PHYSICAL EXAMINATION VITAL SIGNS: Temperature 98.0, heart rate 71, respiratory rate 20, blood pressure 165/80, saturation 96%. GENERAL: Ms. Mccullough is a 66-year-old woman who looks older than stated age. HEENT: Pupils are round, reactive to light and accommodation. Oropharynx with ulceration in the upper lip. Large ulcer and necrotic area at roof of her mouth. There is swelling over the right cheek and mild erythema. There is asymmetry with mild swelling over the right nostril as compared to the left. NECK: Supple with no adenopathy. No axillary adenopathy. LUNGS: Clear to auscultation. CARDIOVASCULAR: Normal rate, rhythm. ABDOMEN: Benign LOWER EXTREMITIES: No edema. Good pulses. NEUROLOGIC: Exam is nonfocal. LABORATORY DATA CBC and comprehensive metabolic panel is normal. Alkaline phosphatase and total protein is mildly elevated. PT/PTT is normal. ASSESSMENT/PLAN Ms. Mccullough is a 66-year-old woman with initial presentation of tooth pain, recurrent sinusitis and is found to have maxillary diffuse large B-cell lymphoma. It involves the maxillary lip, palate, anterior gingiva. Clinically, she has no other adenopathy. CT scan of the neck from August 07, 2016 did not show significant adenopathy. Lengthy discussion with Ms. Mccullough our plans to complete her staging evaluation. She has a newly diagnosed lymphoma. We discussed completing a staging evaluation with outpatient CT PET scan. She will need a baseline echo in anticipation of use of anthracycline. She will also need lumbar puncture in light of the paranasal/maxillary sinus involvement of the diffuse large B-cell lymphoma. She is at high risk for [employer] involvement. Bone marrow biopsy is needed for staging. Additional labs including HIV, LDH, hepatitis panel, HIV will also be performed. We will need to calculate her international prognostic index to prognosticate. Furthermore, this contributes our assessment of her risk for [employer] involvement. Lumbar punctures. [employer] cytology and flow cytometric analysis is recommended. We will coordinate this as well. Ms. Mccullough is quite anxious at the time of the consultation. Her questions were answered to her satisfaction. We discussed our plan to discuss this again. She is quite uncomfortable from her recent procedure and the ulcerations in her mouth. She is offered Xanax for this evening. We will review again our plans for completion of staging evaluation as well as the workup for diffuse large B-cell lymphoma to make appropriate recommendations. I suspect that she has the diffuse large B-cell lymphoma with limited disease. However, given the paranasal sinus involvement it may be more prudent to proceed with systemic therapy. Furthermore, she has systemic symptoms such as the night sweats and the weight loss to suggest need for systemic treatment. Alternatively, if her disease is confined to the maxillary area, we may consider three cycles of chemotherapy followed by involved field radiation. Further recommendation will depend on the findings at final staging. Lastly, we will ask pathology to check c-Myc in the case from 5-10% of patients with diffuse large B-cell lymphoma having a double hit lymphoma. Her lymphoma appears to be progressing quite aggressively from her initial presentation beginning of August 03 to now. Her questions were answered to her satisfaction. MD COLETTE Dinh/ /9:54 PM /11:01 PM LUI
[2016-09-26] VITALS (7 sets, daily range): BP systolic 129–176; BP diastolic 76–98; PULSE 57–68; RESP 15–18; TEMP 97.3–98.7; O2SAT 95–96
[2016-09-26] MEDS: cloNIDine HCL 0.1 MG TAB PO PRN (04:04)
[2016-09-26] MEDS: ACETAMINOPHEN/HYDROcodone 325 MG/5 MG TAB PO PRN ×4 (04:04→22:08)
[2016-09-26] MEDS: AMPICILLIN-SULBACTAM INJ 3 GM in SODIUM CHLORIDE 0.9% INJ 100 ML IV SCH ×4 (04:10→22:09)
[2016-09-26 05:41] LABS: TOTAL PROTEIN SPE 6.8 GM/DL (6.0-7.6)
--- NOTE | 2016-09-26 08:43 | PD.ONC.PN ---
Subjective Subjective Remarks Afebrile overnight. Pt resting in bed in no distress. She states she slept OK but had some strange dreams that she feels is due to the hydrocodone. She has some L side jaw pain, but no other complaints. Objective Data Date Time Temp Pulse Resp B/P Pulse Ox O2 Delivery O2 Flow Rate FiO2 09/26/16 06:10 20 09/26/16 04:00 97.3 57 15 161/81 96 09/26/16 00:00 98.7 61 16 157/96 96 09/25/16 23:38 20 09/25/16 20:00 98.0 09/25/16 19:42 71 20 165/80 96 09/25/16 16:00 98.1 65 16 166/89 97 09/25/16 12:00 96.5 69 16 143/89 97 09/25/16 10:19 94 21 Result Diagram: 09/22/16 0558 Laboratory Results Laboratory Tests Test 09/26/16 04:08 Erythrocyte Sedimentation Rate 24 mm/hr Lactate Dehydrogenase 160 U/L Total Protein 6.8 GM/DL Imaging Studies Last Impressions Chest X-Ray 09/24/16 0000 Signed Impressions: Service Date/Time: September 15:09 - CONCLUSION: Right upper extremity PICC distal tip in appropriate position within the SVC. Leandro Lopez MD Maxillofacial CT 09/20/16 0000 Signed Impressions: Service Date/Time: Tuesday, September 20, 2016 19:27 - CONCLUSION: 1. Increase in bony destructive changes of the maxilla predominantly anteriorly compared with August 05 is characteristic of osteomyelitis associated with extensive dental disease. 2. Near complete resolution of previous phlegmonous mass in the medial inferior right orbit. 3. Improvement in maxillary and sphenoid sinus disease. Partial opacification of the ethmoids persists. Flynn Velez MD Administered Medications Medications (Trade) Dose Ordered Sig/Warren Route PRN Reason Start Time Stop Time Status Last Admin Dose Admin Alprazolam (Xanax) 0.5 mg Q8H PRN PO ANXIETY 09/20/16 21:00 09/25/16 21:29 IV Flush (NS Flush) 2 ml UNSCH PRN FLUSH FLUSH AFTER USING IV ACCESS 09/20/16 21:15 09/23/16 04:22 IV Flush (NS Flush) 2 ml BID FLUSH 09/21/16 09:00 09/25/16 19:40 Morphine Sulfate (Morphine Inj) 2 mg Q3H PRN IV breakthrough pain over 7 09/20/16 21:15 09/25/16 22:44 Propranolol HCl (Inderal) 20 mg Q12HR PO 09/21/16 09:00 09/25/16 19:36 Acetaminophen/ Hydrocodone Bitart ([place] 5-325 Mg) 1 tab Q4H PRN PO pain 3 to 5 09/21/16 14:45 09/24/16 16:06 Acetaminophen/ Hydrocodone Bitart ([place] 5-325 Mg) 2 tab Q4H PRN PO pain 6 to 10 09/21/16 14:45 09/26/16 04:04 Nicotine (Habitrol 14 Mg Patch.24 Hr) 1 patch DAILY TD 09/23/16 09:00 09/25/16 09:11 Miscellaneous Information 1 1 HS TD 09/22/16 21:00 09/25/16 19:42 Ampicillin Sodium/ Sulbactam Sodium/ Sodium Chloride (Unasyn Inj/NS Inj) 100 ml @ 200 mls/hr Q6H IV 09/22/16 16:00 09/26/16 04:10 Chlorhexidine Gluconate (Peridex 0.12% Liq) 15 ml BID OTHER 09/22/16 21:00 09/25/16 19:35 IV Flush (NS Flush) See Protocol DAILY IVF 09/25/16 09:00 09/25/16 09:12 Heparin Sodium (Porcine) (Heparin Central Flush) See Protocol DAILY IVF 09/25/16 09:00 09/25/16 09:12 Heparin Sodium (Porcine) (Heparin Central Flush) See Protocol UNSCH PRN IVF SEE PROTOCOL TABLE 09/24/16 16:15 09/25/16 22:45 Clonidine (Catapres) 0.1 mg Q6H PRN PO SBP>160, DBP>90 09/25/16 05:15 09/26/16 04:04 Lisinopril (Prinivil) 10 mg Q12HR PO 09/25/16 21:00 09/25/16 19:36 Objective Remarks GENERAL: Chronically ill appearing female, sitting up in bed in no distress. SKIN: Warm and dry. EYES: No scleral icterus. No injection or drainage. NECK: Supple, trachea midline. CARDIOVASCULAR: Regular rate and rhythm without murmurs. RESPIRATORY: Breath sounds equal bilaterally. No accessory muscle use. GASTROINTESTINAL: Abdomen soft, non-tender, nondistended. EXTREMITIES: No edema. NEUROLOGICAL: No obvious focal deficit. Awake, alert, and oriented x3. Assessment/Plan Problem List: (1) Diffuse large B-cell lymphoma Status: Acute Plan: -- 09/22/16 Pathology shows diffuse large B cell lymphoma. -- She will need additional staging including an echocardiogram, bone marrow biopsy, lumbar puncture to assess CHEMICAL COMPOUNDER disease. -- We will also plan for a staging PET CT scan as an outpatient. Hx/ Workup: The patient was seen by Dr. Newman on 08/07/16 where he performed endoscopic debridement of the right paranasal sinus, transoral and biopsy of the right maxillary sinus. At that time this biopsy showed extensive acute osteomyelitis. She was treated with Augmentin for 2 weeks. The recommendation was that she had all of her upper teeth be removed. In the interim she was waiting for insurance authorization to cover this. She presented to the ER on September 20 with complaints of increased pain and swelling of her right upper mandible. Imaging studies showed increased bony destructive changes compared to early August. She underwent extraction of teeth #7, 8, 9, 10, 11, 12, and also had biopsy of the maxillary lips, gingiva, bone and palate. The pathology on showed diffuse large B-cell lymphoma with undermining squamous mucosa. The lymphoma was CD20 positive, BCL-2 positive, BCL 6 positive. (2) Anxiety Status: Chronic Plan: -- On Xanax (3) Osteomyelitis of maxilla Status: Acute Plan: -- On Ampicillin IV Q6H Assessment 66 y/o female admitted with a 2 month history of maxillofacial pain and swelling. Plan 1. Wait on results for Echo, lumbar puncture and BMB. 2. She will need an outpatient PET CT scan to complete staging. 3. Recommendations will be based off these results. 4. Supportive care. Attending Statement The exam, history, and the medical decision-making described in the above note were completed with the assistance of the mid-level provider. I reviewed and agree with the findings presented. I attest that I had a [id number] encounter with the patient on the same day, and personally performed and documented my assessment and findings in the medical record. Discussed w/ Dr. Horan. Plan to complete staging BM bx, coordinate at bedside, LP, Echo, Ct/PET as out pt. Magic mouthwash improve symptoms, still has ulcer and mouth pain. Discussed anxiety med Xanax vs. lorazepam. Prefer lorazepam, t/2 Xanax too short. Halima Tang Sep 26, 2016 08:43 Meredith Cordero MD Sep 26, 2016 16:39
--- NOTE | 2016-09-26 08:47 | HHI.PR ---
Subjective Remarks POD 4 s/p biopsy maxillary lip/gingiva/bone/palate s/p extraction of teeth # 7-12 pt seen and examined , aaoX3, nad tolerating po Objective Vital Signs Date Time Temp Pulse Resp B/P Pulse Ox O2 Delivery O2 Flow Rate FiO2 09/26/16 06:10 20 09/26/16 04:00 97.3 57 15 161/81 96 09/26/16 00:00 98.7 61 16 157/96 96 09/25/16 23:38 20 09/25/16 20:00 98.0 09/25/16 19:42 71 20 165/80 96 09/25/16 16:00 98.1 65 16 166/89 97 09/25/16 12:00 96.5 69 16 143/89 97 09/25/16 10:19 94 21 I/O 09/25/16 09/25/16 09/25/16 09/26/16 09/26/16 09/26/16 07:00 15:00 23:00 07:00 15:00 23:00 Intake Total 368 ml 768 ml 351 ml 360 ml Balance 368 ml 768 ml 351 ml 360 ml Intake Oral 240 ml 480 ml 240 ml 240 ml IV Total 128 ml 288 ml 111 ml 120 ml # Voids 2 3 1 1 # Bowel Movements 1 Result Diagram: 09/22/16 0558 Objective Remarks biopsy/extraction sites maxilla stable hemostatic, tissue pink and well perfused granulation tissues noted lip edema decreased, no signs of infection bleeding pus wound margins well approximated, sutures intact decreased tenderness to exam PICC line r arm large - b grade, non Hodgkin lymphoma - lip/gingiva/bone/palate Assessment and Plan Assessment and Plan POD 4 s/p biopsy maxillary lip/gingiva/bone/palate s/p extraction of teeth # 7-12 continue mechanically soft diet improving clinically non Hodgkin lymphoma B cell oncology consult/treatment will follow peripherally Jeremias Saeed DMD Sep 26, 2016 08:47
[2016-09-26] MEDS: SODIUM CHLORIDE 0.9% FLUSH 5 ML FLUSH FLUSH SCH ×2 (09:00→20:21)
[2016-09-26] MEDS: NYSTAT/DIPHENHY/LIDO MOUTHWASH (Adult) 120ML SWISH-SWAL SCH ×5 (09:00→20:18)
--- NOTE | 2016-09-26 09:01 | HHI.PR ---
Subjective Remarks mouth pain. "I can't eat" Objective Vitals heart reg lung cta abd s/nt ext no edema Vital Signs Date Time Temp Pulse Resp B/P Pulse Ox O2 Delivery O2 Flow Rate FiO2 09/26/16 08:54 97.8 60 16 129/77 96 09/26/16 08:46 95 21 09/26/16 06:10 20 09/26/16 04:00 97.3 57 15 161/81 96 09/26/16 00:00 98.7 61 16 157/96 96 09/25/16 23:38 20 09/25/16 20:00 98.0 09/25/16 19:42 71 20 165/80 96 09/25/16 16:00 98.1 65 16 166/89 97 09/25/16 12:00 96.5 69 16 143/89 97 09/25/16 10:19 94 21 09/25/16 09/25/16 09/26/16 15:00 23:00 07:00 Intake Total 768 ml 351 ml 360 ml Balance 768 ml 351 ml 360 ml Intake Oral 480 ml 240 ml 240 ml IV Total 288 ml 111 ml 120 ml # Voids 3 1 1 # Bowel Movements 1 Result Diagram: 09/22/16 0558 Imaging Last [address] 09/20/16 0000 Signed Impressions: Service Date/Time: Tuesday, September 20, 2016 19:27 - CONCLUSION: 1. Increase in bony destructive changes of the maxilla predominantly anteriorly compared with August 05 is characteristic of osteomyelitis associated with extensive dental disease. 2. Near complete resolution of previous phlegmonous mass in the medial inferior right orbit. 3. Improvement in maxillary and sphenoid sinus disease. Partial opacification of the ethmoids persists. Flynn Velez MD A/P Problem List: (1) Diffuse large B-cell lymphoma Status: Acute Plan: Pt was admitted in August for right maxillary sinusitis/oroantral fistula from poor dentition. Cultures at that time grew Acinetobacter Lwoffi and strep species not A,B,D. On Aug.07 she had endoscopic debridement of right paranasal sinuses and transoral debridement and bx of right maxillary sinus. - Pt was seen by ENT/OMFS/ID. - She was discharged Aug 11 to complete 14 more days of Augmentin. - Her infectious sx's resolved and per recent discussion with omfs her oroantral fistula closed on it's own w/out surgery. - Now presents with severe right face pain/swelling and CT imaging reveals concern for maxillary osteomyelitis. Also extremely poor dentition and periodontal dz noted. - Seen by OMFS. Discussed with Dr Saeed. s/p maxillary teeth removal and bx of bone.lip. palate that bx showing large cell lymphoma -cont iv abx - Being followed by ID. - Consulted Hem/onc and w/up for malignancy initiated -addedensure. she is having trouble eating due to mouth pain. add MMW. (2) Osteomyelitis of maxilla Status: Acute Plan: -see above (3) Oroantral fistula Status: Acute Plan: - See above (4) HTN (hypertension) Status: Acute Plan: add lisinipril and prn clonidine. (5) Benign familial tremor Status: Chronic Plan: on Jian Cool MD Sep 26, 2016 09:01
[2016-09-26] MEDS: LISINOPRIL 10 MG TAB PO SCH ×2 (10:12→20:18)
[2016-09-26] MEDS: PROPRANOLOL HCL 20 MG TAB PO SCH ×2 (10:13→20:18)
[2016-09-26] MEDS: NICOTINE 14 MG/24 HR PATCH TD SCH (10:13)
[2016-09-26] MEDS: CHLORHEXIDINE GLUCONATE 0.12% 30 ML CUP OTHER SCH ×2 (10:13→20:18)
[2016-09-26] MEDS: LORATADINE 10 MG TAB PO SCH (10:17)
[2016-09-26] MEDS: guaiFENesin E.R. 600 MG TAB PO SCH ×2 (10:17→20:18)
[2016-09-26] MEDS: REMOVE OLD NICODERM (NICOTINE) PATCH TD SCH (20:19)
--- NOTE | 2016-09-26 21:00 | EC ---
Study Study Date:09/26/2016 STUDY CONCLUSIONS SUMMARY - Procedure narrative: Transthoracic echocardiography. Image quality was fair. Scanning was performed from the parasternal, apical, and subcostal acoustic windows. - Left ventricle: The cavity size was normal. Wall thickness was normal. Systolic function was normal. The estimated ejection fraction was in the range of 60% to 65%. Wall motion was normal; there were no regional wall motion abnormalities. - Tricuspid valve: Trace regurgitation. If LV function is below 40, please consider prescribing an ACEI or ARB or document rationale for non-use. PROCEDURE DATA STUDY STATUS: Elective. Procedure: Transthoracic echocardiography. Image quality was fair. Scanning was performed from the parasternal, apical, and subcostal acoustic windows. Study completion: The patient tolerated the procedure well. Transthoracic echocardiography. M-mode, complete 2D, complete spectral Doppler, and color Doppler. Height: Height: 60in. Weight: Weight: 109.8lb. Body mass index: BMI: 21.5kg/m^2. Body surface area: BSA: 1.45m^2. Patient status: Inpatient. CARDIAC ANATOMY LEFT VENTRICLE: The cavity size was normal. Wall thickness was normal. Systolic function was normal. The estimated ejection fraction was in the range of 60% to 65%. Wall motion was normal; there were no regional wall motion abnormalities. AORTIC VALVE: Trileaflet; normal thickness leaflets. Doppler: Transvalvular velocity was within the normal range. There was no stenosis. No regurgitation. Valve area: 1.56cm^2(VTI). Indexed valve area: 1.08cm^2/m^2 (VTI). Valve area: 1.54cm^2 (Vmax). Indexed valve area: 1.06cm^2/m^2 (Vmax). Mean gradient: 3mm Hg (S). AORTA: Aortic root: The aortic root was normal in size. MITRAL VALVE: Structurally normal valve. Doppler: Transvalvular velocity was within the normal range. There was no evidence for stenosis. No regurgitation. Peak gradient: 2mm Hg (D). LEFT ATRIUM: The atrium was normal in size. RIGHT VENTRICLE: The cavity size was normal. Wall thickness was normal. PULMONIC VALVE: Doppler: Transvalvular velocity was within the normal range. There was no evidence for stenosis. No regurgitation. TRICUSPID VALVE: Structurally normal valve. Doppler: Transvalvular velocity was within the normal range. Trace regurgitation. PULMONARY ARTERY: The main pulmonary artery was normal-sized. Systolic pressure was within the normal range. RIGHT ATRIUM: The atrium was normal in size. PERICARDIUM: There was no pericardial effusion. SYSTEMIC VEINS: Inferior vena cava: The vessel was normal in size. Patient weight: 109.8lb _Ejection fraction:_ 65-75% _Fractional shortening:_ 32% up to 5Kg 5-11.5Kg 11.6-22.9Kg 23-45Kg 45-57Kg Aortic Root 7-13 <17 13-22 17-27 17-27 LA diam 6-13 <23 24-38 33-47 37-40 RVID 10-17 7-15 7-15 7-18 8-17 LVIDd 12-22 <32 24-38 33-47 37-40 LVPW 2-4 3-6 5-7 6-8 7-8 IVS 2-4 3-6 5-7 6-8 7-8 BASIC MEASUREMENTS ADULT NORMAL Left ventricle LV internal dimension, ED, chordal *36.9 mm 43-52 level, PLAX LV internal dimension, ES, chordal 24.3 mm 23-38 level, PLAX Fractional shortening, chordal level, 34 % >29 PLAX LV posterior wall thickness, ED 7.54 mm IVS/LVPW ratio, ED 0.99 <1.3 Ventricular septum Septal thickness, ED 7.45 mm Aortic valve Leaflet separation *13 mm 15-26 Aorta Root diameter, ED 27 mm Left atrium Anterior-posterior dimension 23 mm Anterior-posterior dimension index 1.59 cm/m^2 <2.2 BASIC MEASUREMENTS ADULT NORMAL Aortic valve Leaflet separation *13 mm 15-26 DOPPLER MEASUREMENTS ADULT NORMAL Aortic valve Peak velocity, S 119 cm/s Mean velocity, S 75.9 cm/s VTI, S 20.3 cm Mean gradient, S 3 mm Hg Valve area, VTI 1.56 cm^2 Valve area index, VTI 1.08 cm^2/m^2 Valve area, Vmax 1.54 cm^2 Valve area index, Vmax 1.06 cm^2/m^2 Mitral valve Peak E-wave velocity 76.3 cm/s Peak A-wave velocity 55.8 cm/s Peak gradient, D 2 mm Hg Peak E/A ratio 1.4 Tricuspid valve Regurgitant peak velocity 244 cm/s Peak RV-RA gradient, S 24 mm Hg Maximal regurgitant velocity 244 cm/s Pulmonic valve Peak velocity, S 56.4 cm/s LEGEND: Mean values are shown as u=mean value. Asterisk (*) bran values outside specified normal range. Prepared and signed by Darien Guadarrama [id number]
[2016-09-27] VITALS (8 sets, daily range): BP systolic 153–195; BP diastolic 82–92; PULSE 61–73; RESP 16–18; TEMP 95.7–97.8; O2SAT 91–97
[2016-09-27] MEDS: LORazepam 0.5 MG TAB PO PRN ×2 (00:48→11:13)
[2016-09-27] MEDS ORDERED: SODIUM CHLORIDE 0.65% NASAL SPRAY 45 ML BTL NASAL PRN (01:15)
[2016-09-27] MEDS: AMPICILLIN-SULBACTAM INJ 3 GM in SODIUM CHLORIDE 0.9% INJ 100 ML IV SCH ×4 (04:25→21:41)
[2016-09-27] MEDS: ACETAMINOPHEN/HYDROcodone 325 MG/5 MG TAB PO PRN ×4 (04:26→21:37)
[2016-09-27 04:53] LABS: AUTOMATED NEUTROPHIL # 4.4 TH/MM3 (1.8-7.7); BASOPHIL # 0.1 TH/MM3 (0-0.2); BASOPHIL % 0.9 % (0.0-2.0); EOSINOPHIL # 0.2 TH/MM3 (0-0.4); EOSINOPHIL % 2.5 % (0.0-4.0); HEMATOCRIT 32.8 % (35.0-46.0); HEMO FLAGS DIFF FINAL; LYMPH % 34.1 % (9.0-44.0); LYMPHOCYTE # 2.8 TH/MM3 (1.0-4.8); MEAN CELL VOLUME 86.3 FL (80.0-100.0); MEAN CORPUSCULAR HEMOGLOBIN 29.1 PG (27.0-34.0); MEAN CORPUSCULAR HGB CONC 33.7 % (32.0-36.0); MONO % 8.9 % (0.0-8.0); NEUT % 53.6 % (16.0-70.0); PLATELET COUNT 306 TH/MM3 (150-450); RED CELL DISTRIBUTION WIDTH 14.5 % (11.6-17.2); WHITE BLOOD COUNT 8.2 TH/MM3 (4.0-11.0)
[2016-09-27 05:10] LABS: BICARBONATE 30.4 MEQ/L (21.0-32.0); POTASSIUM 3.4 MEQ/L (3.5-5.1)
[2016-09-27] MEDS: LISINOPRIL 10 MG TAB PO SCH (07:48)
[2016-09-27] MEDS: NYSTAT/DIPHENHY/LIDO MOUTHWASH (Adult) 120ML SWISH-SWAL SCH ×4 (07:48→21:40)
[2016-09-27] MEDS: guaiFENesin E.R. 600 MG TAB PO SCH ×2 (07:48→21:38)
[2016-09-27] MEDS: PROPRANOLOL HCL 20 MG TAB PO SCH ×2 (07:48→21:38)
[2016-09-27] MEDS: CHLORHEXIDINE GLUCONATE 0.12% 30 ML CUP OTHER SCH ×2 (07:49→21:39)
[2016-09-27] MEDS: LORATADINE 10 MG TAB PO SCH (07:49)
[2016-09-27] MEDS: NICOTINE 14 MG/24 HR PATCH TD SCH (07:49)
[2016-09-27] MEDS: SODIUM CHLORIDE 0.9% FLUSH 5 ML FLUSH FLUSH SCH ×2 (07:50→21:40)
[2016-09-27] MEDS ORDERED: POTASSIUM CHLORIDE 20 MEQ CONTROLLED RELEASE TAB PO ONE (08:00)
--- NOTE | 2016-09-27 08:48 | PD.ONC.PN ---
Subjective Subjective Remarks Afebrile overnight. Patient states she still has some burning in her upper gums. She is in agreement with the bedside bone marrow biopsy this morning. No other complaints. Objective Data Date Time Temp Pulse Resp B/P Pulse Ox O2 Delivery O2 Flow Rate FiO2 09/27/16 05:32 19 09/27/16 04:00 95.7 67 18 153/88 94 09/27/16 00:00 97.0 63 17 165/92 95 09/26/16 20:00 97.4 68 18 152/87 95 09/26/16 16:00 97.8 64 16 176/98 95 09/26/16 12:53 97.7 63 16 136/76 96 09/26/16 08:54 97.8 60 16 129/77 96 09/26/16 08:46 95 21 Result Diagram: 09/27/16 0432 09/27/16 0432 Laboratory Results Laboratory Tests Test 09/27/16 04:32 White Blood Count 8.2 TH/MM3 Red Blood Count 3.80 MIL/MM3 Hemoglobin 11.0 GM/DL Hematocrit 32.8 % Mean Corpuscular Volume 86.3 FL Mean Corpuscular Hemoglobin 29.1 PG Mean Corpuscular Hemoglobin 33.7 % Concent Red Cell Distribution Width 14.5 % Platelet Count 306 TH/MM3 Mean Platelet Volume 8.1 FL Neutrophils (%) (Auto) 53.6 % Lymphocytes (%) (Auto) 34.1 % Monocytes (%) (Auto) 8.9 % Eosinophils (%) (Auto) 2.5 % Basophils (%) (Auto) 0.9 % Neutrophils # (Auto) 4.4 TH/MM3 Lymphocytes # (Auto) 2.8 TH/MM3 Monocytes # (Auto) 0.7 TH/MM3 Eosinophils # (Auto) 0.2 TH/MM3 Basophils # (Auto) 0.1 TH/MM3 CBC Comment DIFF FINAL Differential Comment Sodium Level 143 MEQ/L Potassium Level 3.4 MEQ/L Chloride Level 105 MEQ/L Carbon Dioxide Level 30.4 MEQ/L Anion Gap 8 MEQ/L Blood Urea Nitrogen 9 MG/DL Creatinine 0.69 MG/DL Estimat Glomerular Filtration 86 ML/MIN Rate Random Glucose 98 MG/DL Calcium Level 9.4 MG/DL Administered Medications Medications (Trade) Dose Ordered Sig/Warren Route PRN Reason Start Time Stop Time Status Last Admin Dose Admin IV Flush (NS Flush) 2 ml UNSCH PRN FLUSH FLUSH AFTER USING IV ACCESS 09/20/16 21:15 09/23/16 04:22 IV Flush (NS Flush) 2 ml BID FLUSH 09/21/16 09:00 09/27/16 07:50 Morphine Sulfate (Morphine Inj) 2 mg Q3H PRN IV breakthrough pain over 7 09/20/16 21:15 09/25/16 22:44 Propranolol HCl (Inderal) 20 mg Q12HR PO 09/21/16 09:00 09/27/16 07:48 Acetaminophen/ Hydrocodone Bitart ([place] 5-325 Mg) 1 tab Q4H PRN PO pain 3 to 5 09/21/16 14:45 09/24/16 16:06 Acetaminophen/ Hydrocodone Bitart ([place] 5-325 Mg) 2 tab Q4H PRN PO pain 6 to 10 09/21/16 14:45 09/27/16 04:26 Nicotine (Habitrol 14 Mg Patch.24 Hr) 1 patch DAILY TD 09/23/16 09:00 09/27/16 07:49 Miscellaneous Information 1 1 HS TD 09/22/16 21:00 09/26/16 20:19 Ampicillin Sodium/ Sulbactam Sodium/ Sodium Chloride (Unasyn Inj/NS Inj) 100 ml @ 200 mls/hr Q6H IV 09/22/16 16:00 09/27/16 04:25 Chlorhexidine Gluconate (Peridex 0.12% Liq) 15 ml BID OTHER 09/22/16 21:00 09/27/16 07:49 IV Flush (NS Flush) See Protocol DAILY IVF 09/25/16 09:00 09/27/16 07:49 Heparin Sodium (Porcine) (Heparin Central Flush) See Protocol DAILY IVF 09/25/16 09:00 09/25/16 09:12 Heparin Sodium (Porcine) (Heparin Central Flush) See Protocol UNSCH PRN IVF SEE PROTOCOL TABLE 09/24/16 16:15 09/27/16 05:54 Clonidine (Catapres) 0.1 mg Q6H PRN PO SBP>160, DBP>90 09/25/16 05:15 09/26/16 04:04 Lisinopril (Prinivil) 10 mg Q12HR PO 09/25/16 21:00 09/27/16 07:48 Multi-Ingredient Mouthwash/Gargle (Magic Mouthwash Adult Liq) 10 ml QID SWISH-SWAL 09/26/16 09:00 09/27/16 07:48 Guaifenesin (Mucinex Er) 600 mg BID PO 09/26/16 09:00 09/27/16 07:48 Loratadine (Claritin) 10 mg DAILY PO 09/26/16 09:00 09/26/16 10:17 Lorazepam (Ativan) 0.5 mg Q8H PRN PO anxiety 09/26/16 16:45 09/27/16 00:48 Objective Remarks GENERAL: Chronically ill appearing female, sitting up in bed in no distress. SKIN: Warm and dry. EYES: No scleral icterus. No injection or drainage. NECK: Supple, trachea midline. CARDIOVASCULAR: Regular rate and rhythm without murmurs. RESPIRATORY: Breath sounds equal bilaterally. No accessory muscle use. GASTROINTESTINAL: Abdomen soft, non-tender, nondistended. EXTREMITIES: No edema. NEUROLOGICAL: No obvious focal deficit. Awake, alert, and oriented x3. Assessment/Plan Problem List: (1) Diffuse large B-cell lymphoma Status: Acute Plan: -- 09/22/16 Pathology shows diffuse large B cell lymphoma. -- She will need additional staging including a bone marrow biopsy, lumbar puncture to assess PIPE CHIPPER disease. -- We will also plan for a staging PET CT scan as an outpatient. -- Echocardiogram shows EF of 60-65%. Hx/ Workup: The patient was seen by Dr. Newman on 08/07/16 where he performed endoscopic debridement of the right paranasal sinus, transoral and biopsy of the right maxillary sinus. At that time this biopsy showed extensive acute osteomyelitis. She was treated with Augmentin for 2 weeks. The recommendation was that she had all of her upper teeth be removed. In the interim she was waiting for insurance authorization to cover this. She presented to the ER on September 20 with complaints of increased pain and swelling of her right upper mandible. Imaging studies showed increased bony destructive changes compared to early August. She underwent extraction of teeth #7, 8, 9, 10, 11, 12, and also had biopsy of the maxillary lips, gingiva, bone and palate. The pathology on 2/ 21/17 showed diffuse large B-cell lymphoma with undermining squamous mucosa. The lymphoma was CD20 positive, BCL-2 positive, BCL 6 positive. (2) Anxiety Status: Chronic Plan: -- On Ativan prn (3) Osteomyelitis of maxilla Status: Acute Plan: -- On Ampicillin IV Q6H Assessment 66 y/o female admitted with a 2 month history of maxillofacial pain and swelling. Plan 1. Pt had bedside BMB. Consent was signed and a time out was performed. She was medicated with 2mg morphine IVP and 0.5mg Ativan po prior to the procedure. She tolerated the procedure fairly well. Specimens sent to pathology. 2. Radiology consulted for LP prior to discharge. She will need an outpatient PET CT scan to complete staging. 3. Hold off on DVT prophylaxis until after LP. 4. Supportive care. Halima Tang Sep 27, 2016 08:48
--- NOTE | 2016-09-27 09:53 | HHI.PR ---
Subjective Remarks mmw helps Objective Vitals heart reg lung cta abd s/nt ext no edema Vital Signs Date Time Temp Pulse Resp B/P Pulse Ox O2 Delivery O2 Flow Rate FiO2 09/27/16 08:00 97.7 61 16 160/86 96 09/27/16 05:32 19 09/27/16 04:00 95.7 67 18 153/88 94 09/27/16 00:00 97.0 63 17 165/92 95 09/26/16 20:00 97.4 68 18 152/87 95 09/26/16 16:00 97.8 64 16 176/98 95 09/26/16 12:53 97.7 63 16 136/76 96 09/26/16 09/26/16 09/27/16 15:00 23:00 07:00 Intake Total 480 ml 480 ml 366 ml Balance 480 ml 480 ml 366 ml Intake Oral 480 ml 480 ml 240 ml IV Total 126 ml # Voids 3 4 1 # Bowel Movements 1 1 Result Diagram: 09/27/16 0432 09/27/16 0432 Imaging Last [address] 09/20/16 0000 Signed Impressions: Service Date/Time: Tuesday, September 20, 2016 19:27 - CONCLUSION: 1. Increase in bony destructive changes of the maxilla predominantly anteriorly compared with August 05 is characteristic of osteomyelitis associated with extensive dental disease. 2. Near complete resolution of previous phlegmonous mass in the medial inferior right orbit. 3. Improvement in maxillary and sphenoid sinus disease. Partial opacification of the ethmoids persists. Flynn Velez MD A/P Problem List: (1) Diffuse large B-cell lymphoma Status: Acute Plan: Pt was admitted in August for right maxillary sinusitis/oroantral fistula from poor dentition. Cultures at that time grew Acinetobacter Lwoffi and strep species not A,B,D. On Aug.07 she had endoscopic debridement of right paranasal sinuses and transoral debridement and bx of right maxillary sinus. - Pt was seen by ENT/OMFS/ID. - She was discharged Aug 11 to complete 14 more days of Augmentin. - Her infectious sx's resolved and per recent discussion with omfs her oroantral fistula closed on it's own w/out surgery. - Now presents with severe right face pain/swelling and CT imaging reveals concern for maxillary osteomyelitis. Also extremely poor dentition and periodontal dz noted. - Seen by OMFS. Discussed with Dr Saeed. s/p maxillary teeth removal and bx of bone.lip. palate that bx showing large B cell lymphoma - Abx per Dr Fortune. Has picc. End date per ID - Dr Cordero following. Bone marrow bx today. LP tomorrow. Outpt Pet scan. Chemo planned once antibiotic course complete - cont nutrition supplement. MMW for mouth pain. (2) Osteomyelitis of maxilla Status: Acute Plan: -see above (3) Oroantral fistula Status: Acute Plan: - See above (4) HTN (hypertension) Status: Acute Plan: titrate lisinipril. (5) Benign familial tremor Status: Chronic Plan: on bb Jian Horan MD Sep 27, 2016 09:53
[2016-09-27] MEDS ORDERED: LIDOCAINE HCL 1% 50 ML VIAL ONE (11:05)
[2016-09-27] MEDS: MORPHINE SULFATE 4 MG/ML INJ IV PRN ×2 (11:13→11:40)
[2016-09-27 14:01] LABS: BONE MARROW PROCESSING COMPLETE; IRON STAIN DONE; JENNER GIEMSA STAIN DONE
[2016-09-27] MEDS: LISINOPRIL 20 MG TAB PO SCH (21:38)
[2016-09-27] MEDS: REMOVE OLD NICODERM (NICOTINE) PATCH TD SCH (21:40)
[2016-09-27] MEDS: cloNIDine HCL 0.1 MG TAB PO PRN (22:51)
[2016-09-28] VITALS: BP 159/80; PULSE 66; RESP 16; TEMP 97.3; O2SAT 94
[2016-09-28 04:00] VITALS: BP 135/71; PULSE 65; RESP 16; TEMP 96.7; O2SAT 95
[2016-09-28] MEDS: ACETAMINOPHEN/HYDROcodone 325 MG/5 MG TAB PO PRN ×5 (04:03→22:22)
[2016-09-28] MEDS: AMPICILLIN-SULBACTAM INJ 3 GM in SODIUM CHLORIDE 0.9% INJ 100 ML IV SCH ×3 (04:04→17:05)
[2016-09-28] MEDS: SODIUM CHLORIDE 0.9% FLUSH 5 ML FLUSH FLUSH PRN (04:15)
[2016-09-28 05:25] LABS: AUTOMATED NEUTROPHIL # 4.1 TH/MM3 (1.8-7.7); BASOPHIL # 0.1 TH/MM3 (0-0.2); BASOPHIL % 0.9 % (0.0-2.0); EOSINOPHIL # 0.2 TH/MM3 (0-0.4); EOSINOPHIL % 2.4 % (0.0-4.0); HEMATOCRIT 31.7 % (35.0-46.0); HEMO FLAGS DIFF FINAL; LYMPH % 31.2 % (9.0-44.0); LYMPHOCYTE # 2.4 TH/MM3 (1.0-4.8); MEAN CELL VOLUME 89.8 FL (80.0-100.0); MEAN CORPUSCULAR HEMOGLOBIN 28.5 PG (27.0-34.0); MEAN CORPUSCULAR HGB CONC 31.8 % (32.0-36.0); MONO % 11.6 % (0.0-8.0); NEUT % 53.9 % (16.0-70.0); PLATELET COUNT 285 TH/MM3 (150-450); RED BLOOD COUNT 3.53 MIL/MM3 (4.00-5.30); RED CELL DISTRIBUTION WIDTH 15.6 % (11.6-17.2); WHITE BLOOD COUNT 7.6 TH/MM3 (4.0-11.0)
[2016-09-28 05:50] LABS: BICARBONATE 29.2 MEQ/L (21.0-32.0); POTASSIUM 5.4 MEQ/L (3.5-5.1)
[2016-09-28 08:00] VITALS: BP 136/75; PULSE 62; RESP 18; TEMP 97.5; O2SAT 94
[2016-09-28] MEDS: guaiFENesin E.R. 600 MG TAB PO SCH ×2 (08:18→20:44)
[2016-09-28] MEDS: PROPRANOLOL HCL 20 MG TAB PO SCH ×2 (08:18→20:44)
[2016-09-28] MEDS: LISINOPRIL 20 MG TAB PO SCH ×2 (08:18→20:45)
[2016-09-28] MEDS: CHLORHEXIDINE GLUCONATE 0.12% 30 ML CUP OTHER SCH ×2 (08:19→20:44)
[2016-09-28] MEDS: NYSTAT/DIPHENHY/LIDO MOUTHWASH (Adult) 120ML SWISH-SWAL SCH ×4 (08:19→20:44)
[2016-09-28] MEDS: SODIUM CHLORIDE 0.9% FLUSH 5 ML FLUSH FLUSH SCH ×2 (08:20→20:47)
[2016-09-28] MEDS: NICOTINE 14 MG/24 HR PATCH TD SCH (08:20)
--- NOTE | 2016-09-28 11:31 | PD.RAD ---
Post Procedure Progress Note Pre Procedure Diagnosis: (1) Diffuse large B-cell lymphoma Post Procedure Diagnosis: (1) Diffuse large B-cell lymphoma Procedure Date: Sep 28, 2016 Supervising Radiologist: Diego Rios Proceduralist/Assist: Chris Rosado, RT(R), Geri Metzger RT(R)() Anesthesia: Local Plan of Activity Patient to Unit: Nursing Unit Patient Condition: Good See PACS Report for procedural detail/treatment Spinal Procedure Lumbar Puncture L2-L3 Fluid Removal (CCs): 10 Fluid Description: Diego Gibbons MD Sep 28, 2016 11:31
[2016-09-28] MEDS ORDERED: ALPR.5 PO (11:33)
[2016-09-28] MEDS ORDERED: LISI-515 PO (11:33)
[2016-09-28] MEDS ORDERED: HYDR-3516 PO (11:33)
--- NOTE | 2016-09-28 11:36 | HHI.DCPOC ---
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 Avoid second hand smoke Call the 24-hour hour crisis hotline for domestic abuse at Juliocesar Camarena DO Sep 28, 2016 11:36
--- NOTE | 2016-09-28 11:51 | HHI.DS ---
Discharge Summary Admission Date Sep 21, 2016 at 15:22 Discharge Date: Sep 28, 2016 Admitting Diagnosis Right Maxilla Osteomyelitis (1) Diffuse large B-cell lymphoma Diagnosis: Principal (2) Osteomyelitis of maxilla Diagnosis: Principal (3) Oroantral fistula Diagnosis: Principal (4) HTN (hypertension) Diagnosis: Secondary (5) Benign familial tremor Diagnosis: Secondary Consultants Dr. Meredith Cordero, Oncology Dr. Amaya, Maxofacial Surgery Dr. Karoline Fortune, Infectious Disease Brief History Patient is a 66-year-old female who presents to emergency room with complaints of infection to her upper teeth. Patient is currently being followed by Dr. Newman as well as Dr. Saeed and Dr. Newman who both recommended that patient have all her upper teeth removed. Upon review of patient's prior admission on August 10, 2016, patient had a right oral antral fistula. She had pain ,swelling sinus problem with extensive sinus disease. Apparently, patient had her right maxillary molars removed about one year ago and she had sinus communication at that time. It was not treated and since then, she has been battling sinusitis and chronic sinus infections. She was told to follow-up with an oral surgeon but never followed up at that time. Patient was admitted to the hospital and was seen by Dr. Saeed on August 10 for evaluation of this oral antral fistula. At that time, patient was started on antibiotics, it was decided that they would see if the sinus closed by itself, if it didn't close by itself, then she would require surgical intervention. Ultimately, patient was sent home on antibiotics and followed up in the office. Patient has been on a course of antibiotics for the past 10 days - reports that her symptoms are getting worse. Patient will be admitted to observation and consult Dr. Saeed , The area is causing increase pain,foul smelling and increased swelling. CBC/BMP: 09/28/16 0410 09/28/16 0410 Significant Findings Laboratory Tests Test 09/27/16 09/28/16 04:32 04:10 Red Blood Count 3.80 MIL/MM3 3.53 MIL/MM3 (4.00-5.30) (4.00-5.30) Hemoglobin 11.0 GM/DL 10.1 GM/DL (11.6-15.3) (11.6-15.3) Hematocrit 32.8 % 31.7 % (35.0-46.0) (35.0-46.0) Monocytes (%) (Auto) 8.9 % (0.0-8.0) 11.6 % (0.0-8.0) Potassium Level 3.4 MEQ/L 5.4 MEQ/L (3.5-5.1) (3.5-5.1) Estimat Glomerular Filtration 86 ML/MIN (>89) 86 ML/MIN (>89) Rate Mean Corpuscular Hemoglobin 31.8 % Concent (32.0-36.0) Chloride Level 108 MEQ/L (98-107) Anion Gap 4 MEQ/L (5-15) Hospital Course (1) Diffuse large B-cell lymphoma Status: Acute Plan: Pt was admitted in August for right maxillary sinusitis/oroantral fistula from poor dentition. Cultures at that time grew Acinetobacter Lwoffi and strep species not A,B,D. On Aug.07 she had endoscopic debridement of right paranasal sinuses and transoral debridement and bx of right maxillary sinus. - Pt was seen by ENT/OMFS/ID. - She was discharged Aug 11 to complete 14 more days of Augmentin. - Her infectious sx's resolved and per recent discussion with omfs her oroantral fistula closed on it's own w/out surgery. - Pt readmitted to [facility] with severe right face pain/swelling and CT imaging reveals concern for maxillary osteomyelitis. Also extremely poor dentition and periodontal dz noted. - Seen by OMFS. Case discussed between Drs. Horan and Dr Saeed. - 09/22/16 pt underwent dental extractions of teeth: 7, 8, 9, 10, 11, and 12. Pt had biopsies of maxillary lip, gingiva, bones, and palate Pathology revealed large B cell lymphoma. - Pt seen by ID, Dr. Karoline Fortune. Pt treated with Unasyn by PICC for 7 days. - Pt's ABX converted to PO Augmentin which will be continued for 6 weeks from date of surgery, thru 11/03/16 - ID recommended NOT to postpone chemo in this pt since, osteomyelitis no longer active in biopsy. Treatment is targeting residual disease & pt's main issue is lymphoma. - Pt seen by Oncology, Dr. Meredith Cordero. - Pt underwent Bone Marrow Bx performed by Dr. Cordero 09/27/16, results pending. - Pt underwent LP performed by IR, Dr. Rios 09/28/16. Pt will f/u with Dr. Cordero in 3-5 days - Pt will undergo outpt PET scan and chemotherapy - cont nutrition supplement. MMW for mouth pain. (2) Osteomyelitis of maxilla Status: Acute Plan: -see above (3) Oroantral fistula Status: Acute Plan: - See above (4) HTN (hypertension) - pt admitted on low dose propanolol d/t familiar tremors - pt titrated on lisinopril 20mg BID during this admission (5) Benign familial tremor Status: Chronic Plan: on bb Pt Condition on Discharge: Stable Discharge Disposition: Discharge Home Discharge Instructions DIET: Follow Instructions for: Heart Healthy Diet Activities you can perform: Regular-No Restrictions Follow up Referrals: Oncology - 3-[address] Meredith Cordero New Medications: Chlorhexidine Gluconate (Mouth) Liq (Chlorhexidine Gluconate (Mouth) Liq) 0.12% Soln 15 ML OTHER BID dental injury #1 Ref 0 ML Hydrocodone-Acetaminophen (Hydrocodone-Acetaminophen) 5-325 mg Tab 1 TAB PO Q6H PRN PAIN #20 Ref 0 TAB Lisinopril (Lisinopril) 20 Mg Tab 20 MG PO Q12HR htn #60 Ref 0 TAB Eigytrwq-Immwlidccmtrlwf-Zjtaycazc Liq (Magic Mouthwash Adult Liq) 120 Ml Susp 10 ML SWISH-SWAL QID dental issues #1 Ref 0 ML Continued Medications: Alprazolam (Xanax) 0.5 Mg Tab 0.5 MG PO Q8H PRN ANXIETY #7 Ref 0 TAB (This prescription has been renewed) Kvvbaxpmzc-Wlcixtpwdneii-Vzfjpnch (Fioricet) 50-300-40 Mg Cap 1 CAP PO HEADACHE Ref 0 CAP Propranolol (Propranolol) 40 Mg Tab 20 MG PO Q12HR take 1/2 tablet q12hrs. tremors #0 Ref 0 TAB Discontinued Medications: Cefprozil (Cefprozil) 250 Mg Tab 250 MG PO BID Infection Ref 0 TAB Penicillin V Potassium (Penicillin Vk) 250 Mg Tab 250 MG PO Q6H Infection Ref 0 TAB Juliocesar Camarena DO Sep 28, 2016 11:51
[2016-09-28 12:00] VITALS: BP 147/75; PULSE 68; RESP 18; TEMP 97.7; O2SAT 95
[2016-09-28] MEDS ORDERED: MAGICADU2 SWISH-SWAL (12:03)
[2016-09-28] MEDS ORDERED: CHLO.12%30 OTHER (12:03)
[2016-09-28] MEDS: MORPHINE SULFATE 4 MG/ML INJ IV PRN (12:10)
--- NOTE | 2016-09-28 12:16 | PD.ONC.PN ---
Subjective Subjective Remarks Afebrile overnight. Patient feeling fatigued. She just got back from LP and would like some pain medication. Objective Data Date Time Temp Pulse Resp B/P Pulse Ox O2 Delivery O2 Flow Rate FiO2 09/28/16 08:00 97.5 62 18 136/75 94 09/28/16 04:00 96.7 65 16 135/71 95 09/28/16 00:00 97.3 66 16 159/80 94 09/27/16 22:40 168/91 09/27/16 20:00 97.6 68 17 165/82 94 09/27/16 16:00 97.8 73 16 195/91 97 09/27/16 14:49 91 09/28/16 09/28/16 09/28/16 07:00 15:00 23:00 Intake Total 485 ml 360 ml Balance 485 ml 360 ml Result Diagram: 09/28/16 0410 09/28/16 0410 Laboratory Results Laboratory Tests Test 09/28/16 04:10 White Blood Count 7.6 TH/MM3 Red Blood Count 3.53 MIL/MM3 Hemoglobin 10.1 GM/DL Hematocrit 31.7 % Mean Corpuscular Volume 89.8 FL Mean Corpuscular Hemoglobin 28.5 PG Mean Corpuscular Hemoglobin 31.8 % Concent Red Cell Distribution Width 15.6 % Platelet Count 285 TH/MM3 Mean Platelet Volume 8.6 FL Neutrophils (%) (Auto) 53.9 % Lymphocytes (%) (Auto) 31.2 % Monocytes (%) (Auto) 11.6 % Eosinophils (%) (Auto) 2.4 % Basophils (%) (Auto) 0.9 % Neutrophils # (Auto) 4.1 TH/MM3 Lymphocytes # (Auto) 2.4 TH/MM3 Monocytes # (Auto) 0.9 TH/MM3 Eosinophils # (Auto) 0.2 TH/MM3 Basophils # (Auto) 0.1 TH/MM3 CBC Comment DIFF FINAL Differential Comment Sodium Level 141 MEQ/L Potassium Level 5.4 MEQ/L Chloride Level 108 MEQ/L Carbon Dioxide Level 29.2 MEQ/L Anion Gap 4 MEQ/L Blood Urea Nitrogen 10 MG/DL Creatinine 0.69 MG/DL Estimat Glomerular Filtration 86 ML/MIN Rate Random Glucose 98 MG/DL Calcium Level 9.1 MG/DL Administered Medications Medications (Trade) Dose Ordered Sig/Warren Route PRN Reason Start Time Stop Time Status Last Admin Dose Admin IV Flush (NS Flush) 2 ml UNSCH PRN FLUSH FLUSH AFTER USING IV ACCESS 09/20/16 21:15 09/28/16 04:15 IV Flush (NS Flush) 2 ml BID FLUSH 09/21/16 09:00 09/28/16 08:20 Morphine Sulfate (Morphine Inj) 2 mg Q3H PRN IV breakthrough pain over 7 09/20/16 21:15 09/28/16 12:10 Propranolol HCl (Inderal) 20 mg Q12HR PO 09/21/16 09:00 09/28/16 08:18 Acetaminophen/ Hydrocodone Bitart ([place] 5-325 Mg) 1 tab Q4H PRN PO pain 3 to 5 09/21/16 14:45 09/24/16 16:06 Acetaminophen/ Hydrocodone Bitart ([place] 5-325 Mg) 2 tab Q4H PRN PO pain 6 to 10 09/21/16 14:45 09/28/16 08:19 Nicotine (Habitrol 14 Mg Patch.24 Hr) 1 patch DAILY TD 09/23/16 09:00 09/28/16 08:20 Miscellaneous Information 1 1 HS TD 09/22/16 21:00 09/27/16 21:40 Ampicillin Sodium/ Sulbactam Sodium/ Sodium Chloride (Unasyn Inj/NS Inj) 100 ml @ 200 mls/hr Q6H IV 09/22/16 16:00 09/28/16 09:58 Chlorhexidine Gluconate (Peridex 0.12% Liq) 15 ml BID OTHER 09/22/16 21:00 09/28/16 08:19 IV Flush (NS Flush) See Protocol DAILY IVF 09/25/16 09:00 09/27/16 07:49 Heparin Sodium (Porcine) (Heparin Central Flush) See Protocol DAILY IVF 09/25/16 09:00 09/28/16 08:20 Heparin Sodium (Porcine) (Heparin Central Flush) See Protocol UNSCH PRN IVF SEE PROTOCOL TABLE 09/24/16 16:15 09/28/16 06:07 IV Flush (NS Flush) See Protocol UNSCH PRN IVF SEE PROTOCOL TABLE 09/24/16 16:15 09/28/16 06:07 Clonidine (Catapres) 0.1 mg Q6H PRN PO SBP>160, DBP>90 09/25/16 05:15 09/27/16 22:51 Multi-Ingredient Mouthwash/Gargle (Magic Mouthwash Adult Liq) 10 ml QID SWISH-SWAL 09/26/16 09:00 09/28/16 08:19 Guaifenesin (Mucinex Er) 600 mg BID PO 09/26/16 09:00 09/28/16 08:18 Lorazepam (Ativan) 0.5 mg Q8H PRN PO anxiety 09/26/16 16:45 09/27/16 11:13 Lisinopril (Prinivil) 20 mg Q12HR PO 09/27/16 21:00 09/28/16 08:18 Objective Remarks GENERAL: Pleasant middle aged female, lying in bed in nad. SKIN: Warm and dry. HEAD: Normocephalic. EYES: No injection or drainage. NECK: Supple, trachea midline. CARDIOVASCULAR: Regular rate and rhythm RESPIRATORY: Breath sounds equal bilaterally. No accessory muscle use. GASTROINTESTINAL: Abdomen soft, non-tender, nondistended. EXTREMITIES: No cyanosis NEUROLOGICAL: awake and alert, normal speech. Assessment/Plan Problem List: (1) Diffuse large B-cell lymphoma Status: Acute Plan: Pathology shows diffuse large B cell lymphoma. -- We will also plan for a staging PET CT scan as an outpatient. -- Echocardiogram shows EF of 60-65%. Hx/ Workup: The patient was seen by Dr. Newman on 08/07/16 where he performed endoscopic debridement of the right paranasal sinus, transoral and biopsy of the right maxillary sinus. At that time this biopsy showed extensive acute osteomyelitis. She was treated with Augmentin for 2 weeks. The recommendation was that she had all of her upper teeth be removed. In the interim she was waiting for insurance authorization to cover this. She presented to the ER on September 20 with complaints of increased pain and swelling of her right upper mandible. Imaging studies showed increased bony destructive changes compared to early August. She underwent extraction of teeth #7, 8, 9, 10, 11, 12, and also had biopsy of the maxillary lips, gingiva, bone and palate. The pathology on showed diffuse large B-cell lymphoma with undermining squamous mucosa. The lymphoma was CD20 positive, BCL-2 positive, BCL 6 positive. (2) Anxiety Status: Chronic Plan: -- On Ativan prn (3) Osteomyelitis of maxilla Status: Acute Plan: -- On Ampicillin IV Q6H Assessment 66 y/o female admitted with a 2 month history of maxillofacial pain and swelling. Plan 1. fs faxed to npr. patient give new patient packet and number to npr. advised to call for appointment for follow up with Dr. Cordero 2. will plan for outpatient PET CT 3. clear for d/c-will consult PT for assistance with placement Attending Statement The exam, history, and the medical decision-making described in the above note were completed with the assistance of the mid-level provider. I reviewed and agree with the findings presented. I attest that I had a ttcp-ag-ckal encounter with the patient on the same day, and personally performed and documented my assessment and findings in the medical record. Pt seen and examined. Plan to see end of the week for the results of LP and BM staging. Pt will need CT/PET and to complete abx per ID, plan to have oral antibiotics. Discussed port placement w/ Dr. Camarena, defer until abx completed. Claritza Marie Sep 28, 2016 12:16 Meredith Cordero MD Sep 28, 2016 18:12
[2016-09-28 12:59] LABS: GROSS BLOOD TUBE #1 0 (0); GROSS BLOOD TUBE #2 0 (0); GROSS BLOOD TUBE #3 0 (0); SUPERNATE COLOR TUBE #1 CLEAR (CLEAR); SUPERNATE COLOR TUBE #2 CLEAR (CLEAR); SUPERNATE COLOR TUBE #3 CLEAR (CLEAR); VOLUME TUBE # 1 2.9 ML; VOLUME TUBE # 2 2.5 ML; VOLUME TUBE # 3 2.9 ML
[2016-09-28 13:00] LABS: CSF LYMPHOCYTES 0 %; CSF NEUTROPHILS 0 %; GROSS BLOOD TUBE #4 0 (0); SUPERNATE COLOR TUBE #4 CLEAR (CLEAR); WBC TUBE #3 0 /MM3 (0-10)
[2016-09-28 13:01] LABS: VOLUME TUBE # 4 0.8 ML
[2016-09-28 16:00] VITALS: BP 153/72; PULSE 66; RESP 18; TEMP 97.8; O2SAT 94
--- NOTE | 2016-09-28 16:35 | RADRPT ---
EXAM DATE/TIME: 09/28/2016 11:18 [facility] COMPARISON: No previous studies available for comparison. INDICATIONS : Patient presents with a history of lymphoma in need of lumbar puncture . MEDICAL HISTORY : HTN Tremors multiople sinus infections SURGICAL HISTORY : Appendectomy Endoscopic debridement rt paranasal sinus Breast reduction ENCOUNTER: Initial ACUITY: 1 week PAIN SCORE: 5/10 LOCATION: Right maxilla pain. LUMBAR PUNCTURE TIME: 11:23 hours FLUORO TIME: 0.5 minutes ACCESS LEVEL: L3-4 FLUID: 10 cc of clear CSF was collected and sent to the laboratory for analysis. PROCEDURE : 1. Fluoroscopic guided lumbar puncture. The risks, benefits and alternatives to the procedure were explained and verbal and written consent w as obtained. The site was prepped in sterile fashion. Full sterile technique was used, including ca p, mask, sterile gloves and gown and a large sterile sheet. Hand hygiene and 2% chlorhexidine and/or betadine/alcohol prep was utilized per protocol for cutaneous antisepsis. The skin and subcutaneous tissues were infiltrated with local anesthetic solution. With fluoroscopic guidance the lumbar thecal sac was punctured at the level above. The fluid describ ed above was removed without difficulty. The patient tolerated the procedure well and there were no complications. CONCLUSION: Uncomplicated fluoroscopically guided lumbar puncture. Diego Rios MD on September 28, 2016 at 16:33 Board Certified Radiologist. This report was verified electronically.
--- NOTE | 2016-09-28 17:04 | HHI.IDPN ---
Subjective Subjective Remarks feels OK afebrile Antibiotics Unasyn Allergies: Coded Allergies: No Known Allergies (Unverified , 09/20/16) Objective . Vital Signs Date Time Temp Pulse Resp B/P Pulse Ox O2 Delivery O2 Flow Rate FiO2 09/28/16 16:00 97.8 66 18 153/72 94 09/28/16 12:00 97.7 68 18 147/75 95 09/28/16 08:00 97.5 62 18 136/75 94 09/28/16 04:00 96.7 65 16 135/71 95 09/28/16 00:00 97.3 66 16 159/80 94 09/27/16 22:40 168/91 09/27/16 20:00 97.6 68 17 165/82 94 09/27/16 09/27/16 09/28/16 15:00 23:00 07:00 Intake Total 240 ml 240 ml 485 ml Balance 240 ml 240 ml 485 ml Intake Oral 240 ml 240 ml 240 ml IV Total 245 ml # Voids 2 6 2 # Bowel Movements 1 . Laboratory Tests Test 09/27/16 09/28/16 04:32 04:10 White Blood Count 8.2 TH/MM3 7.6 TH/MM3 Red Blood Count 3.80 MIL/MM3 3.53 MIL/MM3 Hemoglobin 11.0 GM/DL 10.1 GM/DL Hematocrit 32.8 % 31.7 % Mean Corpuscular Volume 86.3 FL 89.8 FL Mean Corpuscular Hemoglobin 29.1 PG 28.5 PG Mean Corpuscular Hemoglobin 33.7 % 31.8 % Concent Red Cell Distribution Width 14.5 % 15.6 % Platelet Count 306 TH/MM3 285 TH/MM3 Mean Platelet Volume 8.1 FL 8.6 FL Neutrophils (%) (Auto) 53.6 % 53.9 % Lymphocytes (%) (Auto) 34.1 % 31.2 % Monocytes (%) (Auto) 8.9 % 11.6 % Eosinophils (%) (Auto) 2.5 % 2.4 % Basophils (%) (Auto) 0.9 % 0.9 % Neutrophils # (Auto) 4.4 TH/MM3 4.1 TH/MM3 Lymphocytes # (Auto) 2.8 TH/MM3 2.4 TH/MM3 Monocytes # (Auto) 0.7 TH/MM3 0.9 TH/MM3 Eosinophils # (Auto) 0.2 TH/MM3 0.2 TH/MM3 Basophils # (Auto) 0.1 TH/MM3 0.1 TH/MM3 CBC Comment DIFF FINAL DIFF FINAL Differential Comment Laboratory Tests Test 09/27/16 09/28/16 04:32 04:10 Sodium Level 143 MEQ/L 141 MEQ/L Potassium Level 3.4 MEQ/L 5.4 MEQ/L Chloride Level 105 MEQ/L 108 MEQ/L Carbon Dioxide Level 30.4 MEQ/L 29.2 MEQ/L Anion Gap 8 MEQ/L 4 MEQ/L Blood Urea Nitrogen 9 MG/DL 10 MG/DL Creatinine 0.69 MG/DL 0.69 MG/DL Estimat Glomerular Filtration 86 ML/MIN 86 ML/MIN Rate Random Glucose 98 MG/DL 98 MG/DL Calcium Level 9.4 MG/DL 9.1 MG/DL Imaging Last Impressions Maxillofacial CT 09/20/16 0000 Signed Impressions: Service Date/Time: Tuesday, September 20, 2016 19:27 - CONCLUSION: 1. Increase in bony destructive changes of the maxilla predominantly anteriorly compared with August 05 is characteristic of osteomyelitis associated with extensive dental disease. 2. Near complete resolution of previous phlegmonous mass in the medial inferior right orbit. 3. Improvement in maxillary and sphenoid sinus disease. Partial opacification of the ethmoids persists. Flynn Velez MD Physical Exam CONSTITUTIONAL/GENERAL: This is a thin female elderly patient, in no apparent distress. SKIN: No jaundice, rashes, or lesions.. Skin temperature appropriate. Not diaphoretic. HEAD: Atraumatic. Normocephalic. EYES: Pupils equal and round and reactive. Extraocular motions intact. No scleral icterus. No injection or drainage. Fundi not examined. No erythema, but ill defined edematpresent on R cheek, infraorbital area Upper lip is minimally swollen today Assessment & Plan Remarks Newly diagnosed large cll lymphoma, maxilla presentin all 4 bx including bone Maxillary osteo 2/2 extensive dental caries , polimicrobial, perviously included Acinetobacter, strep - sp surgery - dw Dr Melissa: acute osto definetely present in Aug bx, but not evident in Sep maxilla bx Non complaince with recommended tx (extraction of cariotic teeth) Failed abx 2/2 no source control (pt did not extract cariotic teeth) Palatal lesion, ro malignancy - dc Unasyn - will Rx with 6 wks of po abx starting from the day of sx - I would not postpone chemo in this pt 2/2 osteo since her infx no longer apper activein bx; tx is tageting residual disease and the pt's main issue is lymphoma OK to dc pt home dw Belén Sepulveda pt and her family at b/s Karoline Fortune MD Sep 28, 2016 17:03
[2016-09-28 20:00] VITALS: BP 133/69; PULSE 69; RESP 18; TEMP 96.2; O2SAT 93
[2016-09-28] MEDS: REMOVE OLD NICODERM (NICOTINE) PATCH TD SCH (20:47)
[2016-09-28] MEDS: AMOXICILLIN/CLAVULANATE K 500 MG TAB PO SCH (22:22)
[2016-09-29] VITALS: BP 116/71; PULSE 65; RESP 18; TEMP 98; O2SAT 94
[2016-09-29 04:00] VITALS: BP 119/59; PULSE 71; RESP 17; TEMP 97.5; O2SAT 94
[2016-09-29] MEDS: ACETAMINOPHEN/HYDROcodone 325 MG/5 MG TAB PO PRN ×3 (05:47→13:34)
[2016-09-29] MEDS: AMOXICILLIN/CLAVULANATE K 500 MG TAB PO SCH ×2 (05:47→13:34)
[2016-09-29 08:00] VITALS: BP 143/74; PULSE 62; RESP 20; TEMP 96.9; O2SAT 96
[2016-09-29] MEDS ORDERED: AUGM500T7 PO (08:42)
[2016-09-29] MEDS: SODIUM CHLORIDE 0.9% FLUSH 5 ML FLUSH FLUSH SCH (08:59)
[2016-09-29] MEDS: NYSTAT/DIPHENHY/LIDO MOUTHWASH (Adult) 120ML SWISH-SWAL SCH ×2 (08:59→13:35)
[2016-09-29] MEDS: LISINOPRIL 20 MG TAB PO SCH (09:00)
[2016-09-29] MEDS: CHLORHEXIDINE GLUCONATE 0.12% 30 ML CUP OTHER SCH (09:00)
[2016-09-29] MEDS: NICOTINE 14 MG/24 HR PATCH TD SCH (09:00)
[2016-09-29] MEDS: guaiFENesin E.R. 600 MG TAB PO SCH (09:00)
[2016-09-29] MEDS: PROPRANOLOL HCL 20 MG TAB PO SCH (09:00)
[2016-09-29 09:20] LABS: ALBUMIN SPE 4.21 GM/DL (3.50-5.00); ALPHA 1 GLOBULIN 0.27 GM/DL (0.11-0.29); ALPHA 2 GLOBULIN 0.75 GM/DL (0.22-1.00); BETA GLOBULINS (SPE) 0.78 GM/DL (0.53-1.03)
[2016-09-29 12:25] LABS: AUTOMATED NEUTROPHIL # 6.4 TH/MM3 (1.8-7.7); BASOPHIL # 0.1 TH/MM3 (0-0.2); BASOPHIL % 1.2 % (0.0-2.0); EOSINOPHIL # 0.2 TH/MM3 (0-0.4); EOSINOPHIL % 1.9 % (0.0-4.0); HEMATOCRIT 34.1 % (35.0-46.0); HEMO FLAGS DIFF FINAL; LYMPH % 20.8 % (9.0-44.0); MEAN CELL VOLUME 87.9 FL (80.0-100.0); MONO % 8.8 % (0.0-8.0); NEUT % 67.3 % (16.0-70.0); PLATELET COUNT 310 TH/MM3 (150-450); RED BLOOD COUNT 3.88 MIL/MM3 (4.00-5.30); RED CELL DISTRIBUTION WIDTH 14.5 % (11.6-17.2); WHITE BLOOD COUNT 9.6 TH/MM3 (4.0-11.0)
[2016-09-29 13:13] LABS: BICARBONATE 30.9 MEQ/L (21.0-32.0); POTASSIUM 4.1 MEQ/L (3.5-5.1)
== END 2016-09-29 13:54 | DRG 841 ==
LOC: NEPA 15:30 → INTOOBSV 20:23 → NEDA 20:23 → NEPGCP 09-21 00:05 → OBSVTOIN 09-21 15:22 → HOCB 09-22 20:29 → HOCA 09-22 21:45
PROVIDERS: ADMIT Hospitalist; ATTEND Hospitalist
PROC: 0CDWXZ1 Extraction of Upper Tooth, Multiple, External Approach (ICD-10-PCS; 2016-09-22)
PROC: 0NBR0ZX Excision of Maxilla, Open Approach, Diagnostic (ICD-10-PCS; principal; 2016-09-22 19:03)
PROC: 02HV33Z Insertion of Infusion Device into Superior Vena Cava, Percutaneous Approach (ICD-10-PCS; 2016-09-24)
PROC: 07DR3ZX Extraction of Iliac Bone Marrow, Percutaneous Approach, Diagnostic (ICD-10-PCS; 2016-09-27)
PROC: 009U3ZX Drainage of Spinal Canal, Percutaneous Approach, Diagnostic (ICD-10-PCS; 2016-09-28)
DX: C83.31 Diffuse large B-cell lymphoma, lymph nodes of head, face, and neck (principal); L03.211 Cellulitis of face; I10 Essential (primary) hypertension; K04.7 Periapical abscess without sinus; M27.2 Inflammatory conditions of jaws; F41.9 Anxiety disorder, unspecified; F17.210 Nicotine dependence, cigarettes, uncomplicated; F12.90 Cannabis use, unspecified, uncomplicated; E78.5 Hyperlipidemia, unspecified; K21.9 Gastro-esophageal reflux disease without esophagitis; K02.9 Dental caries, unspecified; G25.0 Essential tremor; J32.0 Chronic maxillary sinusitis; J44.9 Chronic obstructive pulmonary disease, unspecified; J45.909 Unspecified asthma, uncomplicated; H26.9 Unspecified cataract; K57.90 Diverticulosis of intestine, part unspecified, without perforation or abscess without bleeding; Z91.19 Patient's noncompliance with other medical treatment and regimen; Z23 Encounter for immunization
CPT/HCPCS: 36569; 62270; 70487; 71010; 76937; 77003; 80048; 80053; 80074; 82565; 82945; 83605; 83615; 84157; 84165; 85025; 85097; 85610; 85652; 85730; 86703; 88305; 88307; 88311; 88313; 88341; 88342; 89051; 90471; 90714; 93306; 96374; 96375; C1755; G0378; J0131; J0295; J1130; J1642; J2175; J2250; J2270; J2405; J2543; J2930; J3010; J3370; J7030; J7050; Q9967

== ENCOUNTER 2016-12-01 09:28 | Day surgery (SDC) | payer OTHER ==
[~2016-12-01] VITALS: Ht 152.4 cm; Wt 47.7 kg
[~2016-12-01 09:28] MED LIST changes: +CHLO.12%30 OTHER; +HYDR-3516 PO; +LISI-515 PO; +MAGICADU2 SWISH-SWAL
[2016-12-01 10:04] VITALS: BP 119/68; PULSE 65; RESP 20; TEMP 97.9; O2SAT 94
[2016-12-01] MEDS ORDERED: SODIUM CHLOR 0.9% 1000 ML INJ 1,000 ML IV SCH (10:30)
[2016-12-01] MEDS ORDERED: METHOTREXATE IT ONE ×2 (11:00)
[2016-12-01] MEDS ORDERED: SODIUM CHLORIDE 0.9% IT ONE ×2 (11:00)
[2016-12-01 11:08] LABS: APTT (PATIENT) 23.3 SEC (24.3-30.1); PROTHROMBIN TIME - PATIENT 10.6 SEC (9.8-11.6)
[2016-12-01 14:00] VITALS: BP 151/86; PULSE 68; RESP 20; TEMP 97.7; O2SAT 97
--- NOTE | 2016-12-01 14:57 | PD.RAD ---
Post Procedure Progress Note Pre Procedure Diagnosis: (1) Diffuse large B-cell lymphoma Post Procedure Diagnosis: (1) Diffuse large B-cell lymphoma Procedure Date: December 01, 2016 Supervising Radiologist: Lonnie Ziegler Proceduralist/Assist: Yusra Hastings, RT(R), [address] RT(R)(CV) Anesthesia: Local Plan of Activity Patient to Unit: Nursing Unit Patient Condition: Good See PACS Report for procedural detail/treatment Spinal Procedure Lumbar Drain (With Chemotherapy) L3-L4 Fluid Removal (CCs): 11 Fluid Description: Clear Puncture Time: 13:41 Lonnie Ziegler MD December 01, 2016 14:57
[2016-12-01 15:55] VITALS: BP 137/77; PULSE 70; RESP 18; O2SAT 97
[2016-12-01 16:00] LABS: GROSS BLOOD TUBE #1 0 (0); GROSS BLOOD TUBE #2 0 (0); GROSS BLOOD TUBE #3 0 (0); SUPERNATE COLOR TUBE #1 CLEAR (CLEAR); SUPERNATE COLOR TUBE #2 CLEAR (CLEAR); SUPERNATE COLOR TUBE #3 CLEAR (CLEAR)
[2016-12-01 16:01] LABS: CSF LYMPHOCYTES 62 %; CSF MONOCYTES 36 %; WBC TUBE #4 4 /MM3 (0-10)
[2016-12-01 16:03] LABS: GROSS BLOOD TUBE #4 0 (0); SUPERNATE COLOR TUBE #4 CLEAR (CLEAR)
--- NOTE | 2016-12-01 17:10 | RADRPT ---
EXAM DATE/TIME: 12/01/2016 13:30 [facility] COMPARISON: No previous studies available for comparison. INDICATIONS : Patient with non-hodgkins lymphoma in need of lumbar puncture with chemo injection. MEDICAL HISTORY : Non-hodgkins lymphoma Acute osteomyelitis BL maxillary sinus disease Anxiety HTN Migraine SURGICAL HISTORY : Extraction maxillary teeth 7, 8, 9, 10, 11, in 2017 Maxillary upper lip and palate biopsy in 2017 R maxillary sinus biopsy in 2017 Bone marrow biopsy 09/27/16 Appendectomy in 1967 Tonsillectomy in 1965 ENCOUNTER: Initial ACUITY: 4-6 months PAIN SCORE: 0/10 LUMBAR PUNCTURE TIME: 1341 hours FLUORO TIME: 1.0 minutes IMAGE SERIES: 1 ACCESS LEVEL: L3-4 FLUID: 11 cc of clear CSF was collected and sent to the laboratory for analysis. TECH NOTE; Need chemo consent from Dr Cordero office before next LP chemo injection.BRITTANY BAH MR#[id number] : 54 Exam date/desc:December 01, 2016LUMBAR PUNCTURE W/CHEMO INJECT PROCEDURE : Fluoroscopic guided lumbar puncture. Instillation of chemotherapy. The risks, benefits and alternatives to the procedure were explained and verbal and written consent w as obtained. The site was prepped in sterile fashion. Full sterile technique was used, including ca p, mask, sterile gloves and gown and a large sterile sheet. Hand hygiene and 2% chlorhexidine and/or betadine/alcohol prep was utilized per protocol for cutaneous antisepsis. The skin and subcutaneous tissues were infiltrated with local anesthetic solution. With fluoroscopic guidance the lumbar thecal sac was punctured at the level above. The prescribed ch emo therapeutic was injected. The patient tolerated the procedure well and there were no complications. CONCLUSION: Uncomplicated fluoroscopically guided lumbar puncture with chemotherapy injection. Lonnie Ziegler MD on December 01, 2016 at 17:08 Board Certified Radiologist. This report was verified electronically.
== END 2016-12-01 16:10 | disposition home or self-care (01) ==
LOC: HROP 09:28 → HRIP 09:37 → HROP 16:10
PROVIDERS: ATTEND Internal Medicine Hematology & Oncology
DX: C83.31 Diffuse large B-cell lymphoma, lymph nodes of head, face, and neck (principal); I10 Essential (primary) hypertension; M86.10 Other acute osteomyelitis, unspecified site; G43.909 Migraine, unspecified, not intractable, without status migrainosus; Z01.818 Encounter for other preprocedural examination
CPT/HCPCS: 77003; 85610; 85730; 89051; 96450; J7030

== ENCOUNTER 2016-12-04 06:17 | Day surgery (SDC) | payer OTHER ==
[~2016-12-04] VITALS: Ht 152.4 cm; Wt 45.9 kg
[2016-12-04 06:40] VITALS: BP 135/85; PULSE 74; RESP 20; TEMP 97.7; O2SAT 96
[2016-12-04] MEDS ORDERED: SODIUM CHLORIDE 0.9% 1000 ML IV SCH (07:30)
[2016-12-04] MEDS ORDERED: ceFAZolin 2 GM PREMIX 50 ML - implanted port/tunneled catheter insertion IV SCH (07:30)
[2016-12-04] MEDS ORDERED: VANCOMYCIN 1000 MG/NS 250 ML - implanted port/tunneled catheter IV SCH ×2 (07:30)
[2016-12-04] MEDS ORDERED: CHLORHEXIDINE GLUCONATE 2 % 1 PACK (2 CLOTHS) TOPICAL SCH (07:30)
[2016-12-04] MEDS ORDERED: POVIDONE IODINE 5% (ANTISEPSIS KIT) 4 APPLICATIONS EACH NARE SCH (07:30)
[2016-12-04] MEDS ORDERED: MIDAZOLAM HCL 5 MG/5 ML VIAL ONE (08:26)
[2016-12-04] MEDS ORDERED: fentaNYL CITRATE 250 MCG/5 ML AMP ONE (08:26)
[2016-12-04] MEDS ORDERED: LIDOCAINE 1%/EPINEPHrine 1:100,000 SOLN 20 ML VIAL ONE (08:39)
--- NOTE | 2016-12-04 09:26 | PD.RAD ---
Post Procedure Progress Note Pre Procedure Diagnosis: (1) Diffuse large B-cell lymphoma Post Procedure Diagnosis: (1) Diffuse large B-cell lymphoma Procedure Date: December 04, 2016 Supervising Radiologist: Fidencio Morales JR Proceduralist/Assist: Yusra Evans, RT(R)(), Lindsey Rodriguez RT(R) Anesthesia: Conscious Sedation Plan of Activity Patient to Unit: ROPU Patient Condition: Good See PACS Report for procedural detail/treatment Central Venous Access Device Procedure 1 Right Internal Jugular Infusaport Placement single lumen Japanese: 8 Findings: Port in good position and functions well. OK to use Plan F/U with IR or a physician in 10-14 days Jr. Andrew,Fidencio Khoury MD December 04, 2016 09:26
[2016-12-04 09:30] VITALS: BP 152/102; PULSE 82; RESP 20; TEMP 97.7; O2SAT 95
[2016-12-04 09:45] VITALS: BP 143/66; PULSE 69; RESP 20
[2016-12-04 10:03] VITALS: BP 129/75; PULSE 64; RESP 16; O2SAT 93
[2016-12-04 10:30] VITALS: BP 134/75; PULSE 75; RESP 16; O2SAT 95
[2016-12-04 11:30] VITALS: BP 112/74; PULSE 70; RESP 16; O2SAT 95
--- NOTE | 2016-12-04 14:26 | RADRPT ---
EXAM DATE/TIME: 12/04/2016 08:40 [facility] COMPARISON: No previous studies available for comparison. INDICATIONS : Patient with non-hodgkin's lymphoma in need of [id number] placement. MEDICAL HISTORY : Tremors, Diverticulosis, GERD, Large B-cell lymphoma, HTN, Migraines SURGICAL HISTORY : Bone marrow biopsy, Maxillary upper lip and palate biopsy, Appendectomy, Tonsillectomy, Abdominal jailene luis, LP ENCOUNTER: Initial ACUITY: 4-6 months PAIN SCORE: 0/10 FLUORO TIME: 0.4 minutes IMAGE SERIES: 1 SEDATION TIME: 30 minutes ACCESS: Right internal jugular vein SEDATION: 1.) 3.5 mg midazolam (Versed) IV 2.) 175 mcg fentanyl (Sublimaze) IV Prophylactic antibiotics were administered with appropriate pre-procedure timing. Vancomycin within 2 hours of procedure, Ancef (or alternative) within 1 hour of procedure. DEVICE: 1. 8 Vietnamese single lumen Bard Power Port PROCEDURE : 1. Continuous pulse oximetry and EKG monitoring. 2. Intravenous conscious sedation. 3. Ultrasound guidance for venous access. 4. Fluoroscopic guided implantable central venous port placement. The patient was placed supine. The neck was prepped in sterile fashion. Full sterile technique was u sed, including cap, mask, sterile gloves and gown, and a large sterile sheet. Hand hygiene and 2% ch lorhexidine Betadine was utilized per protocol for cutaneous antisepsis with appropriate dry time for site. The skin and subcutaneous tissues were infiltrated with local anesthetic solution. Under direct ultrasound guidance, central venous access was accomplished in the targeted vessel. The ultrasound images depicting access guidance were stored and saved to PACS for permanent record. A s ubcutaneous pocket was created using blunt dissection. The port was introduced to the pocket. The c atheter tubing was fed through a subcutaneous tunnel to the venotomy site. The catheter tubing was c ut to a suitable length and then was introduced through a valved Peel-Away sheath and positioned with catheter tubing tip at the cavo-atrial junction level. The pocket incision was closed with subcutic ular Vicryl suture. Steri-Strips were applied. The port was flushed and locked with heparin solutio n per protocol. Sterile dressing was applied to the site. The patient tolerated the procedure well. Conscious sedation was performed with the prescribed dosages and duration as above in the presence of an independent trained radiology nurse to assist in the monitoring of the patient. EKG and oximetry remained stable throughout the procedure. The patient tolerated the procedure well and there were no complications. The patient was sent to post anesthesia recovery in stable condition. CONCLUSION: Uncomplicated ultrasound and fluoroscopic guided implanted central venous port catheter placement as described in detail above. An 8 Vietnamese Power port was placed. Fidencio Morales Jr., MD on December 04, 2016 at 14:24 Board Certified Radiologist. This report was verified electronically.
== END 2016-12-04 11:45 | disposition home or self-care (01) ==
LOC: HROP 06:17 → HRIP 06:18 → HROP 11:45
PROVIDERS: ATTEND Internal Medicine Hematology & Oncology
DX: C83.31 Diffuse large B-cell lymphoma, lymph nodes of head, face, and neck (principal)
CPT/HCPCS: 36561; 76937; 77001; 99152; 99153; C1788; J0690; J1642; J2250; J3010; J3370; J7030; J7050

== ENCOUNTER 2017-01-20 13:20 | Inpatient (IN) | payer OTHER ==
[~2017-01-20] VITALS: Ht 152.4 cm; Wt 46.7 kg
[~2017-01-20 13:20] MED LIST changes: -AUGM500T7 PO; -CHLO.12%30 OTHER; -MAGICADU2 SWISH-SWAL
[2017-01-20 13:22] VITALS: BP 104/64; PULSE 79; RESP 14; TEMP 98.7; O2SAT 97
--- NOTE | 2017-01-20 13:39 | PD ---
Physical Exam Date Seen by Provider: Jan 20, 2017 Time Seen by Provider: 13:37 Data Data Last Documented VS Vital Signs Date Time Temp Pulse Resp B/P Pulse Ox O2 Delivery O2 Flow Rate FiO2 01/20/17 13:22 98.7 79 14 104/64 97 MDM Supervised Visit with RADHA: No Narrative Course 66 YO F with complaint of redness, pain and swelling of the inner aspect of the right eye x "2 or 3 days." --vision changes. Currently being treated for lymphoma. Vitals reviewed. Seen in triage, awaiting bed placement. Yas Lewis Jan 20, 2017 13:39
[2017-01-20] MEDS ORDERED: BUPR100CR PO (13:53)
[2017-01-20 14:15] VITALS: RESP 16; O2SAT 99
--- NOTE | 2017-01-20 14:16 | PD ---
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 The patient states that the redness began on the lateral aspect of her right cheek and has moved medially to underneath her eye. She states she has pain with moving her right thigh medially and up. She is currently on chemotherapy, last dose was 01/08/17. She denies fever, chills, nausea, vomiting, body aches. No other complaints. PFSH Past Medical History Anxiety: Yes Depression: No Cardiovascular Problems: No Chemotherapy: Yes (LYMPHOMA - LAST CHEMO 01/08/17) Cerebrovascular Accident: No Diabetes: No Diminished Hearing: No Endocrine: No Genitourinary: No Hepatitis: No Hiatal Hernia: No Hypertension: Yes Immune Disorder: No Medical other: Yes (lymphoma) Musculoskeletal: No Neurologic: Yes Psychiatric: Yes Reproductive: No Respiratory: No Immunizations Current: Yes Migraines: Yes Thyroid Disease: No Tetanus Vaccination: < 5 Years Influenza Vaccination: Yes ?: Not Past Surgical History Abdominal Surgery: Yes (Tonsils, appy, c-sect, dental) AICD: No Appendectomy: Yes Section: Yes (x 1) Joint Replacement: No Oral Surgery: Yes (upper removed) Pacemaker: No Tonsillectomy: Yes Other Surgery: Yes (breast reduction, exploritory sx in abd) Social History Alcohol Use: Yes (ocassionally) Tobacco Use: No Substance Use: Yes (Marijuana ) Allergies-Medications (Allergen,Severity, Reaction): Coded Allergies: No Known Allergies (Unverified , 01/20/17) Reported Meds & Prescriptions Reported Meds & Active Scripts Active Hydrocodone-Acetaminophen 5-325 mg Tab 1 Tab PO Q6H PRN Xanax (Alprazolam) 0.5 Mg Tab 0.5 Mg PO Q8H PRN Reported Wellbutrin SR 12 HR (Bupropion HCl) 100 Mg Tab 100 Mg PO Q12HR Review of Systems Except as stated in HPI: all other systems reviewed are Neg Physical Exam Narrative GENERAL: Well-nourished and well-developed pleasant male patient in no acute distress who is nontoxic appearing. SKIN: Warm and dry. There is redness, warmth and swelling underneath the right eye with some fluctuance. HEAD: Normocephalic and atraumatic. EYES: No injection, drainage, or hyphema noted. PERRLA. EOMI. Patient does have pain in right eye with EOM medially and upward. ENT: No nasal drainage noted. Oropharynx is clear. NECK: Supple and the trachea is midline. CARDIOVASCULAR: Regular rate and rhythm. RESPIRATORY: Breath sounds are equal bilaterally with no accessory muscle use, wheezing, rhonchi, or crackles. GASTROINTESTINAL: Abdomen is soft, non-tender, and nondistended. MUSCULOSKELETAL: No obvious deformities, swelling, cyanosis, or ecchymosis is present throughout the upper and lower extremities. Patient has full range of motion without any signs of neurovascular compromise. NEUROLOGICAL: Awake, alert, and oriented. Normal speech and gait. Cranial nerves are grossly intact. Data Data Last Documented VS Vital Signs Date Time Temp Pulse Resp B/P Pulse Ox O2 Delivery O2 Flow Rate FiO2 01/20/17 16:26 16 01/20/17 14:15 99 Room Air 01/20/17 13:55 76 01/20/17 13:22 98.7 104/64 Orders Complete Blood Count With Diff (01/20/17 14:12) Comprehensive Metabolic Panel (01/20/17 14:12) Lactic Acid Sepsis Protocol (01/20/17 14:12) Ecg Monitoring (01/20/17 14:12) Iv Access Insert/Monitor (01/20/17 14:12) Oximetry (01/20/17 14:12) Westergren Sedimentation Rate (01/20/17 14:12) C-Reactive Protein (Crp) (01/20/17 14:12) Ct Facial Bones W Iv Contrast (01/20/17 ) Morphine Inj (Morphine Inj) (01/20/17 16:00) Ondansetron Inj (Zofran Inj) (01/20/17 16:00) Sodium Chlor 0.9% 1000 Ml Inj (Ns 1000 M (01/20/17 15:48) Lidocai-Epi 1%-1:100,000 Inj (Xylocaine- (01/20/17 16:00) Vancomycin Inj (Vancomycin Inj) (01/20/17 16:00) Blood Culture (01/20/17 15:55) Iohexol 350 Inj (Omnipaque 350 Inj) (01/20/17 16:17) Admit To Inpatient (01/20/17 ) Code Status (01/20/17 16:59) Vital Signs (Adult) Q4H (01/20/17 16:59) Activity Oob With Assistance (01/20/17 16:59) Diet Regular Basic (01/20/17 Dinner) Sodium Chloride 0.9% Flush (Ns Flush) (01/20/17 17:00) Sodium Chloride 0.9% Flush (Ns Flush) (01/20/17 21:00) Acetaminophen (Tylenol) (01/20/17 17:00) Ondansetron Inj (Zofran Inj) (01/20/17 17:00) Temazepam (Restoril) (01/20/17 17:00) Basic Metabolic Panel (Bmp) (01/21/17 06:00) Complete Blood Count With Diff (01/21/17 06:00) Chest, Single Ap (01/20/17 16:59) Electrocardiogram (01/20/17 16:59) Pt Request For Service (01/20/17 16:59) Scd Bilateral/Knee High MO.BID (01/20/17 16:59) Naloxone Inj (Narcan Inj) (01/20/17 17:00) Magnesium Hydroxide Liq (Milk Of Magnesi (01/20/17 17:00) Inpatient Certification (01/20/17 ) Consult Oral, Facial Surgery (01/20/17 ) Vancomycin Inj (Vancomycin Inj) (01/21/17 04:00) Acetamin-Hydrocod 325-5 Mg ([place] 5-325 (01/20/17 17:15) Hydromorphone Pf Inj (Dilaudid Pf Inj) (01/20/17 17:15) Alprazolam (Xanax) (01/20/17 17:15) Bupropion Sr 12 Hr (Wellbutrin Sr 12 Hr) (01/20/17 21:00) (Hub Use Only)Inp Phy Cons/Ref (01/20/17 ) Admit Order (Ed Use Only) (01/20/17 17:13) Labs Laboratory Tests Test 01/20/17 01/20/17 14:32 14:42 White Blood Count 16.1 TH/MM3 Red Blood Count 2.94 MIL/MM3 Hemoglobin 8.5 GM/DL Hematocrit 25.8 % Mean Corpuscular Volume 88.0 FL Mean Corpuscular Hemoglobin 28.9 PG Mean Corpuscular Hemoglobin 32.8 % Concent Red Cell Distribution Width 18.4 % Platelet Count 273 TH/MM3 Mean Platelet Volume 7.0 FL Neutrophils (%) (Auto) 82.9 % Lymphocytes (%) (Auto) 7.2 % Monocytes (%) (Auto) 8.2 % Eosinophils (%) (Auto) 1.2 % Basophils (%) (Auto) 0.5 % Neutrophils # (Auto) 13.3 TH/MM3 Lymphocytes # (Auto) 1.2 TH/MM3 Monocytes # (Auto) 1.3 TH/MM3 Eosinophils # (Auto) 0.2 TH/MM3 Basophils # (Auto) 0.1 TH/MM3 CBC Comment AUTO DIFF Differential Total Cells 100 Counted Neutrophils % (Manual) 69 % Band Neutrophils % 11 % Lymphocytes % 10 % Monocytes % 8 % Basophils % 1 % Neutrophils # (Manual) 13.0 TH/MM3 Myelocytes 1 % Differential Comment FINAL DIFF MANUAL Toxic Granulation 1+ Platelet Estimate NORMAL Platelet Morphology Comment NORMAL Red Cell Morphology Comment NORMAL Erythrocyte Sedimentation Rate GREATER THAN 140 mm/hr Sodium Level 138 MEQ/L Potassium Level 3.6 MEQ/L Chloride Level 104 MEQ/L Carbon Dioxide Level 26.1 MEQ/L Anion Gap 8 MEQ/L Blood Urea Nitrogen 10 MG/DL Creatinine 0.69 MG/DL Estimat Glomerular Filtration 86 ML/MIN Rate Random Glucose 97 MG/DL Calcium Level 9.1 MG/DL Total Bilirubin 0.2 MG/DL Aspartate Amino Transf 11 U/L (AST/SGOT) Alanine Aminotransferase 19 U/L (ALT/SGPT) Alkaline Phosphatase 176 U/L C-Reactive Protein 6.29 MG/DL Total Protein 7.4 GM/DL Albumin 3.4 GM/DL Lactic Acid Level 0.9 mmol/L [facility] Medical Decision Making Medical Screen Exam Complete: Yes Emergency Medical Condition: Yes Differential Diagnosis Abscess versus cellulitis versus cyst versus osteomyelitis versus sepsis Narrative Course 66-year-old female with a history of large B-cell lymphoma of the right maxillary sinus, palate and lip currently on chemotherapy presents to the emergency department for evaluation of right-sided redness and facial swelling. Patient is afebrile, vital signs are stable. IV access was obtained, labs drawn and sent. CBC shows elevated white blood cell count of 16.1, anemia with hemoglobin of 8.5 , hematocrit 25.8. Patient has a bandemia with 11% band neutrophils. CMP is unremarkable. Sedimentation rate and CRP are elevated. Lactic acid is within normal limits. Blood cultures have been drawn and sent. CT of the maxillofacial bones with IV contrast shows 1.3 x 1.8 x 1.6 and an air- fluid collection along the medial aspect of the right orbit concerning for abscess. There is permeated if distracted changes involving the maxilla. Complete opacification of the right maxillary sinus with permeated and instructed changes involving the inferior aspect of maxillary sinus. Diffuse bony thickening around the left maxillary sinus. Mucoperiosteal sinus disease involving the ethmoid sinuses and frontal sinuses. The fluid collection along the medial aspect of the right orbit is significantly worse than seen on previous. Patient is administered 1 g vancomycin IV and IV fluids. She'll be admitted to medicine service for continued IV antibiotics. Procedures Procedure Narrative After the risks and benefits were discussed the following procedure was performed: INCISION AND DRAINAGE OF ABSCESS: The area was prepped and was sterilely draped. A subcutaneous wheal of 1 % Xylocaine with epinephrine with a total number 1 mL was used to anesthetize the area. The area was properly anesthetized. A number 11 scalpel was used to make a pinpoint incision across the area of the abscess. Malodorous purulence was expelled. Cultures were obtained. The abscess was drained an irrigated with normal saline. Physician Communication Physician Communication I spoke with Dr. Camarena for healthcare plans agrees to admit the patient to his service. Diagnosis Primary Impression: Facial abscess Additional Impression: Diffuse large B-cell lymphoma Qualified Code: C83.31 - Diffuse large B-cell lymphoma of lymph nodes of head Admitting Information Admitting Physician Requests: Admit Maile Castillo Jan 20, 2017 14:16
[2017-01-20 14:57] LABS: AUTOMATED NEUTROPHIL # 13.3 TH/MM3 (1.8-7.7); BASOPHIL # 0.1 TH/MM3 (0-0.2); BASOPHIL % 0.5 % (0.0-2.0); EOSINOPHIL # 0.2 TH/MM3 (0-0.4); EOSINOPHIL % 1.2 % (0.0-4.0); HEMATOCRIT 25.8 % (35.0-46.0); LYMPH % 7.2 % (9.0-44.0); LYMPHOCYTE # 1.2 TH/MM3 (1.0-4.8); MEAN CORPUSCULAR HEMOGLOBIN 28.9 PG (27.0-34.0); MEAN CORPUSCULAR HGB CONC 32.8 % (32.0-36.0); MONO % 8.2 % (0.0-8.0); NEUT % 82.9 % (16.0-70.0); PLATELET COUNT 273 TH/MM3 (150-450); RED BLOOD COUNT 2.94 MIL/MM3 (4.00-5.30); RED CELL DISTRIBUTION WIDTH 18.4 % (11.6-17.2); WHITE BLOOD COUNT 16.1 TH/MM3 (4.0-11.0)
[2017-01-20 14:59] LABS: HEMO FLAGS AUTO DIFF
[2017-01-20 15:12] LABS: ANION GAP 8 MEQ/L (5-15); AST (GOT) 11 U/L (15-37); BICARBONATE 26.1 MEQ/L (21.0-32.0); BLOOD UREA NITROGEN 10 MG/DL (7-18); CHLORIDE 104 MEQ/L (98-107); GLOMERULAR FILTRATION RATE 86 ML/MIN (>89); POTASSIUM 3.6 MEQ/L (3.5-5.1); SODIUM (NA) 138 MEQ/L (136-145)
[2017-01-20 15:15] LABS: ALKALINE PHOSPHATASE 176 U/L (45-117); ALT (GPT) 19 U/L (10-53); TOTAL BILIRUBIN ADULT 0.2 MG/DL (0.2-1.0)
[2017-01-20 15:33] LABS: BANDS 11 % (0-6); BASOPHILS 1 % (0-2); MYELOCYTES 1 % (0-0); PLATELET ESTIMATE SMEAR NORMAL (NORMAL); PLATELET MORPHOLOGY NORMAL (NORMAL); POLYS (SEG NEUTROPHILS) 69 % (16-70); SCAN/DIFF FINAL DIFF MANUAL; TOXIC GRANULATION 1+ (NORMAL); WBC DIFF SAMPLE 100
[2017-01-20] MEDS ORDERED: SODIUM CHLOR 0.9% 1000 ML INJ 1,000 ML IV SCH (15:48)
[2017-01-20] MEDS ORDERED: LIDOCAINE 1%/EPINEPHrine 1:100,000 SOLN 20 ML VIAL INFIL ONE (16:00)
[2017-01-20] MEDS ORDERED: MORPHINE SULFATE 4 MG/ML INJ IV PUSH ONE (16:00)
[2017-01-20] MEDS ORDERED: VANCOMYCIN INJ 1,000 MG in SODIUM CHLOR 0.9% 250 ML INJ 250 ML IV ONE (16:00)
[2017-01-20] MEDS ORDERED: ONDANSETRON HCL 4 MG/2 ML VIAL IVP ONE (16:00)
[2017-01-20] MEDS ORDERED: IOHEXOL 350 MG/ML 10 ML VIAL (for RAD DIAG) IV ONE (16:17)
--- NOTE | 2017-01-20 16:40 | RADRPT ---
EXAM DATE/TIME: 01/20/2017 16:00 This report includes an Addendum and supersedes previous reports for this exam. [facility] COMPARISON: CT FACIAL BONES W CONTRAST, September 20, 2016, 19:27. INDICATIONS : Swelling and redness under right eye. IV CONTRAST: 50 cc Omnipaque 350 (iohexol) IV RADIATION DOSE: 53.17 CTDIvol (mGy) MEDICAL HISTORY : Lymphoma. SURGICAL HISTORY : Appendectomy. Tonsillectomy. ENCOUNTER: Initial ACUITY: 3 days PAIN SCALE: 6/10 LOCATION: Right facial TECHNIQUE: Volumetric scanning of the facial bones was performed. Using automated exposure control and adjustme nt of the mA and/or kV according to patient size, radiation dose was kept as low as reasonably achiev able to obtain optimal diagnostic quality images. FINDINGS: ORBITS: The examination demonstrates a 1.6 x 1.2 x 1.8 cm fluid collection with enhancing rim along the infer ior margin of the right orbit and extending down into the right cheek. This extends over to the later al wall of the right ethmoid area and there is considerable inflammatory change in and around this ar ea. Findings would be concerning for abscess. The retroconal space appears intact. The extraocular mu scles appear intact. The globe is intact. The examination also demonstrates cortical destruction involving the maxilla. There is complete opaci fication of the right maxillary sinus. There is extensive bony thickening of the left maxillary sinus . There is mucoperiosteal sinus disease involving the ethmoids. There is opacification of frontal sin us. CONCLUSION: 1. 1.3 x 1.8 x 1.6 cm fluid collection along the medial aspect of the right orbit concerning for absc ess. 2. Permeative, destructive changes involving the maxilla. 3. Complete opacification of the right maxillary sinus with permeative and destructive changes involv ing the inferior aspect of maxillary sinus. 4. Diffuse bony thickening around the left maxillary sinus. 5. Mucoperiosteal sinus disease involving the ethmoid sinuses and frontal sinus. 6. The fluid collection along the medial aspect of the right orbit is significantly worse than seen o n previous. Compa Henry MD on January 20, 2017 at 16:28 Board Certified Radiologist. This report was verified electronically. ADDENDUM: The destructive changes within the maxilla are similar to prior of 09/20/16. Compa Henry MD on January 22, 2017 at 14:44 Board Certified Radiologist. This report was verified electronically.
[2017-01-20] MEDS ORDERED: NALOXONE HCL 0.4 MG/ML AMP IV PRN (17:00)
[2017-01-20] MEDS ORDERED: ACETAMINOPHEN 325 MG TAB PO PRN (17:00)
[2017-01-20] MEDS ORDERED: MAGNESIUM HYDROXIDE SUSP 30 ML CUP PO PRN (17:00)
[2017-01-20] MEDS ORDERED: SODIUM CHLORIDE 0.9% FLUSH 10 ML FLUSH IV FLUSH PRN (17:00)
[2017-01-20] MEDS ORDERED: TEMAZEPAM 15 MG CAP PO PRN (17:00)
[2017-01-20] MEDS ORDERED: Vancomycin Consult Pharmacy 1 EA OTHER SCH (17:45)
--- NOTE | 2017-01-20 17:56 | HHI.HP ---
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 The patient states that the redness began on the lateral aspect of her right cheek and has moved medially to underneath her eye. She states she has pain with moving her right thigh medially and up. She is currently on chemotherapy, last dose was 01/08/17. She denies fever, chills, nausea, vomiting, body aches. No other complaints. Patient had CT which confirmed abscess which was Iand D in er and sent for culture and started on vancomycin . Will consult oral facial and oncology. Review of Systems Other facial pain and swelling Past Family Social History Past Medical History lymphoma,hypertension Past Surgical History tonsil,appendix oral surgery breast reduction Reported Medications pain med ,wellbutyrn Allergies: Coded Allergies: No Known Allergies (Unverified , 01/20/17) Social History occ etoh marijuana Physical Exam Vital Signs Vital Signs Date Time Temp Pulse Resp B/P Pulse Ox O2 Delivery O2 Flow Rate FiO2 01/20/17 16:26 16 01/20/17 14:15 16 99 Room Air 01/20/17 13:55 76 15 01/20/17 13:22 98.7 79 14 104/64 97 Physical Exam GENERAL: This is a well-nourished, well-developed patient, in no apparent distress. SKIN: No rashes, ecchymoses or lesions. Cool and dry. HEAD: Atraumatic. Normocephalic. No temporal or scalp tenderness.facial swelling reddeness and warmth under rt eye EYES: Pupils equal round and reactive. Extraocular motions intact. No scleral icterus. No injection or drainage. ENT: Nose without bleeding, purulent drainage or septal hematoma. Throat without erythema, tonsillar hypertrophy or exudate. Uvula midline. Airway patent. NECK: Trachea midline. No JVD or lymphadenopathy. Supple, nontender, no meningeal signs. CARDIOVASCULAR: Regular rate and rhythm without murmurs, gallops, or rubs. RESPIRATORY: Clear to auscultation. Breath sounds equal bilaterally. No wheezes , rales, or rhonchi. GASTROINTESTINAL: Abdomen soft, non-tender, nondistended. No hepato-splenomegaly , or palpable masses. No guarding. MUSCULOSKELETAL: Extremities without clubbing, cyanosis, or edema. No joint tenderness, effusion, or edema noted. No calf tenderness. Negative Homans sign bilaterally. NEUROLOGICAL: Awake and alert. Cranial nerves II through XII intact. Motor and sensory grossly within normal limits. Five out of 5 muscle strength in all muscle groups. Normal speech. Laboratory Laboratory Tests Test 01/20/17 01/20/17 14:32 14:42 White Blood Count 16.1 Red Blood Count 2.94 Hemoglobin 8.5 Hematocrit 25.8 Mean Corpuscular Volume 88.0 Mean Corpuscular Hemoglobin 28.9 Mean Corpuscular Hemoglobin 32.8 Concent Red Cell Distribution Width 18.4 Platelet Count 273 Mean Platelet Volume 7.0 Neutrophils (%) (Auto) 82.9 Lymphocytes (%) (Auto) 7.2 Monocytes (%) (Auto) 8.2 Eosinophils (%) (Auto) 1.2 Basophils (%) (Auto) 0.5 Neutrophils # (Auto) 13.3 Lymphocytes # (Auto) 1.2 Monocytes # (Auto) 1.3 Eosinophils # (Auto) 0.2 Basophils # (Auto) 0.1 CBC Comment AUTO DIFF Differential Total Cells 100 Counted Neutrophils % (Manual) 69 Band Neutrophils % 11 Lymphocytes % 10 Monocytes % 8 Basophils % 1 Neutrophils # (Manual) 13.0 Myelocytes 1 Differential Comment FINAL DIFF MANUAL Toxic Granulation 1+ Platelet Estimate NORMAL Platelet Morphology Comment NORMAL Red Cell Morphology Comment NORMAL Erythrocyte Sedimentation Rate GREATER THAN 140 Sodium Level 138 Potassium Level 3.6 Chloride Level 104 Carbon Dioxide Level 26.1 Anion Gap 8 Blood Urea Nitrogen 10 Creatinine 0.69 Estimat Glomerular Filtration 86 Rate Random Glucose 97 Calcium Level 9.1 Total Bilirubin 0.2 Aspartate Amino Transf 11 (AST/SGOT) Alanine Aminotransferase 19 (ALT/SGPT) Alkaline Phosphatase 176 C-Reactive Protein 6.29 Total Protein 7.4 Albumin 3.4 Lactic Acid Level 0.9 Date/Time Procedure Status Source Growth 01/20/17 16:25 Aerobic Blood Culture Received Blood Peripheral Pending 01/20/17 16:25 Anaerobic Blood Culture Received Blood Peripheral Pending Result Diagram: 01/20/17 1432 01/20/17 1432 Imaging Last [address] 01/20/17 0000 Signed Impressions: Service Date/Time: Wednesday, January 20, 2017 16:00 - CONCLUSION: 1. 1.3 x 1.8 x 1.6 cm fluid collection along the medial aspect of the right orbit concerning for abscess. 2. Permeative, destructive changes involving the maxilla. 3. Complete opacification of the right maxillary sinus with permeative and destructive changes involving the inferior aspect of maxillary sinus. 4. Diffuse bony thickening around the left maxillary sinus. 5. Mucoperiosteal sinus disease involving the ethmoid sinuses and frontal sinus. 6. The fluid collection along the medial aspect of the right orbit is significantly worse than seen on previous. Compa Henry MD Course in er Iand D and started on vancomycin cultures sent Assessment and Plan Problem List: (1) Facial abscess Status: Acute Plan: consult max/facial suregry vancomycin (2) Diffuse large B-cell lymphoma Status: Chronic Plan: on chemo will consult oncology Assessment and Plan as above Code Status full Discussed Condition With patient Physician Certification 2 Midnight Certification Type: Admission for Inpatient Services Order for Inpatient Services The services are ordered in accordance with Medicare regulations or non- Medicare payer requirements, as applicable. In the case of services not specified as inpatient-only, they are appropriately provided as inpatient services in accordance with the 2-midnight benchmark. Estimated LOS (days): 3 3 days is the estimated time the patient will need to remain in the hospital, assuming treatment plan goals are met and no additional complications. Post-Hospital Plan: Not yet determined Problem Qualifiers (1) Diffuse large B-cell lymphoma: Qualified Code: C83.38 - Diffuse large B-cell lymphoma of lymph nodes of multiple regions Guido Wesley MD Jan 20, 2017 17:56
[2017-01-20 18:00] VITALS: PULSE 89; RESP 17; TEMP 97.8; O2SAT 99
--- NOTE | 2017-01-20 18:09 | RADRPT ---
EXAM DATE/TIME: 01/20/2017 17:50 [facility] COMPARISON: CHEST SINGLE AP, September 24, 2016, 15:09. INDICATIONS : Cough starting today MEDICAL HISTORY : Lymphoma. SURGICAL HISTORY : Infusaport placement ENCOUNTER: Initial ACUITY: 1 day PAIN SCORE: 0/10 LOCATION: Bilateral chest FINDINGS: Portable AP view of the chest demonstrates a normal-sized cardiac silhouette. Right chest wall Infuse -a-Port is present with distal tip in the SVC. No effusion, consolidation, or pneumothorax is identif ied. Bones and soft tissues demonstrate no acute finding. CONCLUSION: No acute cardiopulmonary abnormality is identified. Leandro Lopez MD on January 20, 2017 at 18:06 Board Certified Radiologist. This report was verified electronically.
[2017-01-20 19:06] VITALS: BP 154/72; PULSE 85; RESP 18; O2SAT 97
[2017-01-20] MEDS: buPROPion HCL 100 MG SUSTAINED RELEASE TAB PO SCH (21:00)
--- NOTE | 2017-01-20 23:00 | MB ---
cc: REJI HOYT DMD DATE OF CONSULTATION 01/20/17 REASON FOR CONSULTATION Facial edema/abscess. HISTORY OF PRESENT ILLNESS This is a 66-year-old female well known to me who several months ago was admitted to the hospital in August 2016. She had undergone a ___ procedure with Dr. Newman. She had an oroantral fistula communication and I was consulted for evaluation of that. She had followed up in my office and the communication had closed up. However, her lip was always swollen and she had erythema and edema on her gingiva, poor you for teeth dentition and exposure of bone in the hard palate. She was readmitted to the hospital and I had taken her to the operating room and did a biopsy of the lips and the gingiva and the bone and it came back as a B-cell lymphoma. She is under treatment with Dr. Cordero for this. I have seen and examined the patient this evening. Her [id number] is at bedside. She is alert, awake and oriented times three, in no acute distress. Her eye was recently I&D this evening at bedside. She says she feels much better at this point. Denies any visual disturbances. Denies any fever, chills, nausea, vomiting, any shortness of breath or difficulty breathing. In good spirits. PAST MEDICAL HISTORY Past medical history of lymphoma, hypertension. PAST SURGICAL HISTORY Extraction maxillary teeth biopsy of the gingiva and of the palate. The diagnosis of B-cell lymphoma. Appendix removal. MEDICATIONS Pain meds. ALLERGIES NO KNOWN DRUG ALLERGIES. SOCIAL HISTORY Occasional of alcohol. Denies any drugs or any tobacco. PHYSICAL EXAMINATION VITAL SIGNS: Temperature 98.7, pulse is 85, respiration 18, blood pressure 154/72 with oxygen saturation of 97%. HEENT: Pupils are equal, round, reactive to light and accommodation. Extraocular movements are intact. On the right side of the face she has edema and she has an edema on the infraorbital region of her eye extending from the medial canthal region down to the zygoma region. It is soft. No drainable collection noted at this point. But she did feel tenderness to palpation. Intraorally tissues are pink and well-perfused. No lip edema. All the previous biopsy sites, wounds, palate all has healed up beautifully. No evidence of any lymphoma at this point. Significant reduction in the lip/intraoral edema. Tissues are pink and well inside the mouth orally. No communication to her sinuses intraorally. Please note that the patient indicated to me that all of this stuff started, the swelling, after she blew her nose and all of a sudden every time she blew her nose she is to have discharge coming out of that area through the nose to the mouth and then when it stopped coming the swelling started on the right side. Denies getting bit by any insects or any popping of pimple or anything like that. CT scan of the facial bones shows edema in the infraorbital region extending to the medial region. Bony destruction that was noted previously. Again, bony destruction on the palatal region. There is an abscess collection onto the inferior aspect of the eyelid/the right side of the face extend the medial aspect. LABORATORY DATA White count was 16.1 with an H&H of 28.5 and 25.8 with platelets of 273. IMPRESSION AND PLAN This is a 66-year-old female who had kept on blowing her nose with some sinus issues and now sudden the onset of the last 2 to 3 days of swelling in the right face infraorbital region extending to the medial aspect when whatever discharge of crud that used to come out stopped coming out. It was recently ___ and sent for culture. She was started on antibiotics. She has been diagnosed and being treated with B-cell lymphoma. PLAN/RECOMMENDATIONS Continue the antibiotics, wait for the cultures, advise infectious diseases consult, and ENT consult to recall them back the evaluation of the right maxillary sinus and the sinuses region. This could be the etiology of her swelling on the right eye, could be a blockage from the drainage from the eye or through the nose or any kind of discharge infection from the sinuses going upwards to her nose towards the eye region. We will continue follow peripherally. Did also discuss with Dr. Camarena to consult ENT. Reji Hoyt DMD NETWORK DIRECTOR/EO /9:26 PM /10:31 PM
[2017-01-20] MEDS: SODIUM CHLORIDE 0.9% FLUSH 10 ML FLUSH IV FLUSH SCH (23:10)
[2017-01-20] MEDS: HYDROmorphone HCL PF 1 MG/ML VIAL IV PUSH PRN (23:11)
[2017-01-21] VITALS: BP 131/82; PULSE 79; RESP 16; TEMP 97.9; O2SAT 97
[2017-01-21] MEDS ORDERED: VANCOMYCIN INJ 1,000 MG in SODIUM CHLOR 0.9% 250 ML INJ 250 ML IV SCH (04:00)
[2017-01-21 05:21] LABS: AUTOMATED NEUTROPHIL # 11.1 TH/MM3 (1.8-7.7); BASOPHIL % 0.4 % (0.0-2.0); EOSINOPHIL # 0.2 TH/MM3 (0-0.4); EOSINOPHIL % 1.5 % (0.0-4.0); HEMATOCRIT 25.1 % (35.0-46.0); LYMPH % 7.4 % (9.0-44.0); MEAN CELL VOLUME 88.4 FL (80.0-100.0); MEAN CORPUSCULAR HEMOGLOBIN 29.2 PG (27.0-34.0); MONO % 7.4 % (0.0-8.0); NEUT % 83.3 % (16.0-70.0); PLATELET COUNT 266 TH/MM3 (150-450); RED BLOOD COUNT 2.83 MIL/MM3 (4.00-5.30); RED CELL DISTRIBUTION WIDTH 17.7 % (11.6-17.2); WHITE BLOOD COUNT 13.2 TH/MM3 (4.0-11.0)
[2017-01-21 05:31] LABS: HEMO FLAGS AUTO DIFF
[2017-01-21 05:56] LABS: POTASSIUM 3.6 MEQ/L (3.5-5.1)
[2017-01-21 07:35] LABS: BANDS 24 % (0-6); CORRECTED NUCLEATED RBC 1 /100 WBC (0-0); EOSINOPHILS 3 % (0-4); NEUTROPHIL # MANUAL DIFF 11.5 TH/MM3 (1.8-7.7); POLYS (SEG NEUTROPHILS) 63 % (16-70); WBC DIFF SAMPLE 100
[2017-01-21 07:37] LABS: PLATELET ESTIMATE SMEAR NORMAL (NORMAL); PLATELET MORPHOLOGY NORMAL (NORMAL); SCAN/DIFF FINAL DIFF MANUAL; TOXIC GRANULATION 3+ (NORMAL)
[2017-01-21 08:00] VITALS: BP 116/69; PULSE 74; RESP 16; TEMP 97.4; O2SAT 97
[2017-01-21] MEDS: buPROPion HCL 100 MG SUSTAINED RELEASE TAB PO SCH ×2 (08:17→20:49)
[2017-01-21] MEDS: SODIUM CHLORIDE 0.9% FLUSH 10 ML FLUSH IV FLUSH SCH ×2 (08:17→20:49)
[2017-01-21] MEDS: VANCOMYCIN INJ 750 MG in SODIUM CHLOR 0.9% 250 ML INJ 250 ML IV SCH (08:17)
--- NOTE | 2017-01-21 10:06 | MB ---
cc: LEXY ROONEY RUBY ANNE E. M.D. DATE OF 1950 DATE OF SERVICE 01/21/[address] Rooney CHIEF COMPLAINT Dr. Rooney requests a consultation for Ms. Rosa Mccullough with a new right maxillary/periorbital abscess in the midst of treatment for a diffuse large B-cell lymphoma. HISTORY OF PRESENT ILLNESS Ms. 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 She is receiving R-CHOP chemotherapy and tolerating it well. There is resolution of lesions in the lip and the mouth. She has communication still in the right upper gum that has diminished in size. Ms. Mccullough was out of town visiting her daughter when she developed swelling of the right eye two days prior to her presentation. She apparently has had a lot of nasal/sinus drainage. She describes blowing her nose until the day prior to the eye swelling. She took an antihistamine and her nose dried up. In the meantime her eye swelling had increased. She came back to town and presented to the emergency room for evaluation. CT scan of the maxillofacial sinus shows a 1.3 x 1.8 x 1.6 cm fluid collection along the medial aspect of the right orbit concerning for an abscess. There are destructive changes involving the maxilla. There is opacification of the right maxillary sinus and destructive changes of the maxillary sinus. There is bony thickening of the left maxillary sinus and mucoperiosteal sinus disease involving the ethmoid sinuses, frontal sinuses and fluid collection in the right orbit seems to be worse. Clinically it has worsened since her nose stopped draining. She was seen already by Dr. Saeed who recommended ENT to follow up. At bedside, drainage of the abscess in the eye. The patient complained of significant amount of pain and would not tolerate that again. Apparently cultures were obtained. A culture from the wound is still pending blood cultures are still pending. Fortunately Ms. Mccullough is past her sher. Her white count is 13,000. Her hemoglobin is 8.3, platelet count 266. REVIEW OF SYSTEMS She denies any fevers at home. She was doing well until the development of the facial swelling after her nose stopped draining. She was looking forward to continuing her chemotherapy. She seems to be responding quite well. The rest of review of systems is negative. PAST MEDICAL HISTORY 1. Non-Hodgkin's lymphoma/diffuse large B-cell lymphoma of the sinus. 2. History of osteomyelitis and right maxillary sinus disease. 3. Anxiety. 4. Hypertension 5. Chemotherapy induced anemia. PAST SURGICAL HISTORY 1. Tooth extraction. 2. Upper lip and palate biopsy. 3. Maxillary sinus biopsy. 4. Appendectomy. 5. Tonsillectomy. FAMILY HISTORY Mother at age of 61 of kidney cancer. Father at age 82 with diabetes and dementia. SOCIAL HISTORY Ms. Mccullough is . She quit smoking a year ago. She has at least a 12 pack-year smoking history. She drinks occasionally. She denies any illicit drug use. ALLERGIES No known drug allergies. CURRENT MEDICATIONS 1. Vancomycin. 2. Wellbutrin. 3. [place]. 4. Hydromorphone p.r.n. 5. Xanax p.r.n. 6. Ondansetron p.r.n. 7. Restoril p.r.n. PHYSICAL EXAMINATION VITALS: Temperature 97.4 heart rate 74, respiratory rate 16, blood pressure 116/69, saturation 97%. GENERAL: Ms. Mccullough is a petite woman who looks older than stated age. HEENT: Her pupils are round, reactive to light and accommodation. There is infraorbital swelling more prominent in the right inner canthus. There is redness. The site of the incision for the I&D yesterday has healed and closed. Her nostril is more flared on the right but this may be due to her previous broken nose and deviated septum. Oropharynx is clear. NECK: Supple. LUNGS: Clear to auscultation. CARDIOVASCULAR: Exam reveals normal rate and rhythm. ABDOMEN: Benign. LOWER EXTREMITIES: No edema. NEUROLOGICAL EXAM: Nonfocal. LABORATORY DATA As described above. ASSESSMENT AND PLAN Ms. Mccullough is a 66-year-old woman with history of hypertension and migraines who presents with abscess and right maxillary sinus extending to the infraorbital area in the midst of her treatment for diffuse large B-cell lymphoma. I discussed with Ms. Mccullough plan to consult with ENT who has already been called as well as Infectious Disease. She is well known from her previous admission by Dr. Fortune who had coordinated her antibiotic therapy. She is currently on vancomycin pending culture results. She needs to complete her treatment for the options before I could continue additional treatment of her lymphoma. This is difficult given that she is responding very well and interruption of treatment would compromise her chances of a complete remission from her diffuse large B-cell lymphoma. Nevertheless, we will wait ENT evaluation to see how they may be able to drain her sinus disease and keep it from reaccumulating. It is not clear if the use of the antihistamine had blocked the passageway and does not allow the sinus to drains. I also suspect that there is healing of the lymphoma-related destruction of the sinuses with her treatment. She is in need of support. We will continue antibiotic therapy for now. Infectious Disease with Dr. Fortune is consulted. We await ENT evaluation. Supportive treatment. We will follow culture results. We will monitor for any fevers. Further decision regarding her chemotherapy will be based on her response to treatment and treatment plan for the infraorbital maxillary sinus abscess. MD COLETTE Dinh/RAULITO /8:44 AM /9:45 AM
[2017-01-21] MEDS: ONDANSETRON HCL 4 MG/2 ML VIAL IVP PRN (10:17)
[2017-01-21] MEDS: ACETAMINOPHEN/HYDROcodone 325 MG/5 MG TAB PO PRN ×2 (10:17→14:06)
[2017-01-21 12:00] VITALS: BP 113/70; PULSE 74; RESP 17; TEMP 98.5; O2SAT 98
[2017-01-21] MEDS ORDERED: cefTRIAXone INJ 2,000 MG in SODIUM CHLORIDE 0.9% INJ 100 ML IV SCH (15:00)
--- NOTE | 2017-01-21 15:25 | EKG ---
Date Performed: 01/20/2017 Time Performed: 17:36:18 PTAGE: 66 years EKG: Sinus rhythm NONSPECIFIC ST & T-WAVE ABNORMALITY Compared to previous tracing, there's been and increase in the i nferolateral ST segment changes Clinical correlation is advised BORDERLINE ECG PREVIOUS TRACING : 08/05/2016 18.33 DOCTOR: Yun Romero Interpretating Date/Time 01/21/2017 15:25:13
--- NOTE | 2017-01-21 15:42 | MB ---
cc: ZAHEER MAHER MD DATE OF CONSULTATION: 01/21/[address] Cordero. REASON FOR CONSULTATION: Right maxillary periorbital abscess during treatment of lymphoma. HISTORY OF PRESENT ILLNESS She is a 66-year-old white female who has history of lymphoma. 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 She has been undergoing chemotherapy. She at one point had removal of teeth at the upper jaw. She is currently edentulous at the upper jaw. The patient developed some itching of the right eye approximately five days ago. She thought that he was probably an allergic reaction since she was our working around the house outside. She used one compress to the area but it did not go away and therefore she thought it was not the usual allergic reaction which she has to cactus, and she subsequently developed erythema and it was worsening. This progressed to the point where the eyelids became swollen and her eye was almost completely shut. Most of the swelling was below the right eye. She had no fever or chills. Her white count was 16.1. CT scan was performed and showed a 1.6 x 1.2 x 1.8 cm fluid filled collection with enhancing rim along the inferior margin of the right orbit extending down into the right cheek. There is also destructive changes involving the maxilla and complete opacification of the right maxillary sinus. The area closer to the corner of the eye at the lower aspect medially was lanced and malodorous fluid return was described via a pinpoint incision. This was expressed and sent for culture. The culture is pending. The gram stain showed many gram-positive cocci in pairs and clusters. The patient was started on intravenous vancomycin. She tells me that the redness is improved and the swelling is improved. She is able to almost completely open her eye today. She describes having headache at the left parietal area of the head. She states that she gets migraine headache and that could be part of her migraine headache. She stated that the vision in the right eye slightly blurred. White blood cell count today is decreased to 13.2. Differential shows 24% bands. Blood cultures taken yesterday have no growth. The patient is able to swallow without difficulty. She has no pain in the jaw when she opens her mouth. She has no tearing of the eye. She denies pain of the eye globe. She does have tenderness at the area of swelling around the eye. The patient was treated in August for right periorbital cellulitis. The cultures at that time grew out Acinetobacter and strep not A, B, D. An MRI at that time showed extensive sinus disease and there was also periorbital phlegmon / abscess with surrounding cellulitic changes noted. The patient notes that she is getting draining through her nose but that it is mostly clear. She denies postnasal drip. PAST MEDICAL HISTORY 1. Non-Hodgkin's lymphoma, diffuse large B-cell of the sinus. 2. Osteomyelitis of the right maxillary sinus 3. Hypertension. 4. Anxiety. 5. Anemia 6. Tooth extraction 7. Appendectomy 8. Tonsillectomy. ALLERGIES NO KNOWN DRUG ALLERGIES. MEDICATIONS 1. Vancomycin. 2. [place] 5. 3. Zofran p.r.n. 4. Wellbutrin. 5. Xanax p.r.n. SOCIAL HISTORY No tobacco use. The patient is a former smoker. She quit about a year ago. Occasional alcohol. Positive marijuana. FAMILY HISTORY Significant for kidney cancer in the mother. REVIEW OF SYSTEMS GENERAL: No fever or chills. HEAD, EYES, EARS, NOSE, AND THROAT: Significant for pain at the right kike orbital area and erythema at the right perirectal area. Positive nasal drainage. No difficulty swallowing or soreness of the throat. NECK: No neck pain or neck swelling. CARDIOVASCULAR SYSTEM: No palpitation or chest pain. RESPIRATORY: No cough or shortness of breath. GASTROINTESTINAL: No nausea, vomiting, abdominal pain or diarrhea. GENITOURINARY: No urgency, frequency or dysuria. HEMATOPOIETIC No easy bruising or bleeding. MUSCULOSKELETAL: No muscle aches or joint pains. ENDOCRINE: No polyuria, polydipsia. INTEGUMENTARY: No skin rash or itching. NEUROLOGIC: No problems with coordination. PSYCHIATRIC: No problems with depression or mood changes. PHYSICAL EXAMINATION: IN GENERAL: This is a well-developed, female who is in no acute distress. She is awake and alert. VITAL SIGNS: Include temperature 98.5, blood pressure 113/70, respirations 17, Heart rate 74. HEAD, EYES, EARS, NOSE, AND THROAT: Head is atraumatic. The right periorbital area has erythema and swelling and is very tender on palpation. The eye is opened fully and the eye globe appears intact. There is tenderness on palpation around the left lower eyelid. Extraocular movements grossly intact. Pupils reactive to light. No icterus. Oropharynx no visible lesions. The patient is edentulous of the upper. NECK: Supple. No adenopathy. LUNGS: Clear to auscultation. HEART: Regular rate and rhythm. No murmurs. No rubs. No gallops. ABDOMEN: Bowel sounds present, soft, no tenderness. RECTAL: The rectal was not preformed. EXTREMITIES: No clubbing, cyanosis or edema. SKIN: No diffuse rash. NEUROLOGIC: Patient alert and oriented x3. Nonfocal. PSYCHIATRIC: The patient is calm and cooperative. LABORATORY DATA WBC 13.2, platelet 266, 83% neutrophils, 7% lymphocytes, differential includes 24% bands. Hemoglobin 8.3, sedimentation rate 1400, C-reactive protein 6.29, creatinine 0.69, estimated GFR 89, sodium 141. IMPRESSION 1. Periorbital cellulitis. 2. Maxillary sinus abscess. 3. Patient with lymphoma of the maxillary sinus who is undergoing chemotherapy. Last chemotherapy received on January 08. 6. History of osteomyelitis of the right maxillary sinus. The patient may be getting occlusion of the sinus and that is leading to infection including current episodes. RECOMMENDATIONS 1. Continue vancomycin which should be good empiric treatment since the gram stain shows gram-positive cocci in pairs and clusters. 2. Add ceftriaxone. 3. The patient to be seen by ENT physician. She should have drainage of any sinus fluid to help clear up this infection. 4. Follow the cultures to adjust antibiotics. 5. Follow clinical status. Thank you this consultation. The patient's progress will be monitored and further recommendations will be made on followup if necessary. Zaheer Maher MD FD/azael /2:44 PM /3:21 PM
[2017-01-21 16:00] VITALS: BP 123/60; PULSE 72; RESP 16; TEMP 96.7; O2SAT 97
--- NOTE | 2017-01-21 16:41 | HHI.PR ---
Subjective Remarks Pt is a pleasant 66 y/o F with diffuse large B - cell lymphoma of the maxillary sinus, palate, and lip. Patient is receiving R- CHOP chemotherapy per oncology, Dr.Ruby Cordero. Patient developed swelling in her right eye 2 days prior to admission. Patient has been having a lot of nasalsinus drainage. Patient has been able to blow her nose until the day prior to eye swelling. CT scan of the maxillofacial sinuses show destructive changes involving the maxillary, opacification of the right maxillary sinus. Patient has been started on IV vancomycin with some clinical improvement. Per pt, decreased facial pain and swelling. Objective Vitals Vital Signs Date Time Temp Pulse Resp B/P Pulse Ox O2 Delivery O2 Flow Rate FiO2 01/21/17 12:00 98.5 74 17 113/70 98 01/21/17 08:00 97.4 74 16 116/69 97 01/21/17 00:00 97.9 79 16 131/82 97 01/20/17 19:06 85 18 154/72 97 Room Air 01/20/17 18:00 97.8 89 17 99 Room Air 01/20/17 16:26 16 01/20/17 01/20/17 01/21/17 15:00 23:00 07:00 Intake Total 0 ml 240 ml Balance 0 ml 240 ml Intake Oral 240 ml IV Total 0 ml 0 ml # Voids 1 # Bowel Movements 0 Result Diagram: 01/21/17 0505 01/21/17 0505 Imaging Last [address] 01/20/17 0000 Signed Impressions: Service Date/Time: Friday, January 20, 2017 16:00 - CONCLUSION: 1. 1.3 x 1.8 x 1.6 cm fluid collection along the medial aspect of the right orbit concerning for abscess. 2. Permeative, destructive changes involving the maxilla. 3. Complete opacification of the right maxillary sinus with permeative and destructive changes involving the inferior aspect of maxillary sinus. 4. Diffuse bony thickening around the left maxillary sinus. 5. Mucoperiosteal sinus disease involving the ethmoid sinuses and frontal sinus. 6. The fluid collection along the medial aspect of the right orbit is significantly worse than seen on previous. Compa Henry MD Objective Remarks GENERAL: This is a well-nourished, well-developed patient, in no apparent distress. CARDIOVASCULAR: Regular rate and rhythm without murmurs, gallops, or rubs. RESPIRATORY: Clear to auscultation. Breath sounds equal bilaterally. No wheezes , rales, or rhonchi. GASTROINTESTINAL: Abdomen soft, non-tender, nondistended. Normal active bowel sounds MUSCULOSKELETAL: Extremities without clubbing, cyanosis, or edema. NEURO: Alert & Oriented x4 to person, place, time, situation. Moves all ext x4 A/P Problem List: (1) Facial abscess Status: Acute Plan: - comgmt with ID, Oncology, Maxillofacial Surgery - h/o osteomyelitis of the right maxillary sinus - facial abscess drained in ER 01/20/17 - wound culture (01/20/17) --> Gram negative Rods - Blood cultures (01/20/17) --> NGTD - Vancomycin (01/20 - present) - Rocephin (01/21 - present) - Appreciate input from specialists - Case d/w ENT, Dr. Micky Jimenes. He will consult. - conservative measures with antibiotics vs. surgical procedure - repeat CBC in AM - follow cultures - norco/dilaudid prn pain (2) Acute abscess of maxillary sinus Status: Acute Plan: - see above (3) Periorbital cellulitis of right eye Status: Acute Plan: - see above (4) Diffuse large B-cell lymphoma Status: Chronic Plan: - Pt receiving R-CHOP per Dr. Cordero - Pt has been tolerating R-CHOP well - appreciate input from Dr. Cordero (5) Anxiety Status: Chronic Plan: - buspirone, xanax prn Problem Qualifiers (1) Diffuse large B-cell lymphoma: Qualified Code: C83.38 - Diffuse large B-cell lymphoma of lymph nodes of multiple regions Juliocesar Camarena DO Jan 21, 2017 16:40
[2017-01-21] MEDS: ALPRAZolam 0.5 MG TAB PO PRN (16:57)
--- NOTE | 2017-01-21 17:17 | HHI.PR ---
Subjective Remarks pt seen and examined aaox3 nad, reports feeling much better denies pain/visual disturbances Objective Vital Signs Date Time Temp Pulse Resp B/P Pulse Ox O2 Delivery O2 Flow Rate FiO2 01/21/17 16:00 96.7 72 16 123/60 97 01/21/17 12:00 98.5 74 17 113/70 98 01/21/17 08:00 97.4 74 16 116/69 97 01/21/17 00:00 97.9 79 16 131/82 97 01/20/17 19:06 85 18 154/72 97 Room Air 01/20/17 18:00 97.8 89 17 99 Room Air I/O 01/20/17 01/20/17 01/20/17 01/21/17 01/21/17 01/21/17 07:00 15:00 23:00 07:00 15:00 23:00 Intake Total 0 ml 240 ml 590 ml Balance 0 ml 240 ml 590 ml Intake Oral 240 ml 340 ml IV Total 0 ml 0 ml 250 ml # Voids 1 4 # Bowel Movements 0 0 Result Diagram: 01/21/17 0505 01/21/17 0505 Objective Remarks PERRLA/EOMI + good visual acuity significant decrease in right infraorbital edema/tenderness/erythema no discharge noted Assessment and Plan Assessment and Plan s/p drainage er right infraorbital abscess GRAM STAIN Final 01/21/17-0829 MANY WBC'S MODERATE GRAM POSITIVE COCCI IN PAIRS AND CLUSTERS WOUND CULTURE Preliminary 01/21/17-1530 HEAVY GROWTH GRAM NEGATIVE TONI ID AND BRITT TO FOLLOW blood - no growth hx of b cell lymphoma decrease in white count continue abx ent consult pending oms signing off Jeremias Saeed DMD Jan 21, 2017 17:16
--- NOTE | 2017-01-21 19:48 | MB ---
cc: BISHOP JIMENES MD DATE OF CONSULTATION: 01/20/2017 CHIEF COMPLAINT Right facial swelling. HISTORY OF PRESENT ILLNESS The patient is a pleasant 66-year-old female with a history of maxillary lymphoma, currently undergoing chemotherapy, who was noted to have recent right infraorbital swelling, tenderness and erythema, this was drained in the emergency room yesterday. Of note, the patient had significant decrease of her right periorbital swelling over night and significantly less pain subjectively. She has no visual disturbances. She is currently on broad-spectrum antibiotics. She notes that when at home she was irrigating with four bottles of sinus rinse regularly, but she notes when this did stop that is when the infection got worse. On examination she does have right periorbital mild swelling, although per patient and the staff it is much less than it was prior. Her extraocular muscles are intact. On nasopharyngoscope she does have edema, erythema, and mucus in her right nasal cavity. 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 Also noted was complete opacification of the right maxillary sinus with permeative and destructive changes involving the inferior aspect of the right maxillary sinus. She also was noted to have mucoperiosteal sinus disease involving the ethmoid and frontal sinuses. Also, on examination I did not note any connection from her maxillary sinus to the roof of her hard palate. ASSESSMENT Right facial abscess, resolving, with a sinus infection for which the patient is on broad-spectrum antibiotics. The patient also has underlying B-cell lymphoma of her sinuses. RECOMMENDATION My recommendation is for the patient to continue her broad-spectrum antibiotics as per her home team. Also, I recommend the patient be getting NeilMed sinus rinse four bottles consecutively with saline and mixed with two drops of baby shampoo in each bottle, doing this regimen twice a day. The patient did the regimen partially at home and is comfortable with this. However, she did not have the baby shampoo at that time, which I discussed to her would help as a surfactant and help drain the thick fluid. The patient understands the above. As for the patient's chemotherapy, non-aggressive measures are ideal at this point. Thank you for this consultation, available for further consultation. Bishop Jimenes MD CCP/BJJazmin /5:51 PM /7:16 PM
[2017-01-21 20:00] VITALS: BP 136/65; PULSE 83; RESP 18; TEMP 97.6; O2SAT 98
[2017-01-21] MEDS: HYDROmorphone HCL PF 1 MG/ML VIAL IV PUSH PRN (20:50)
[2017-01-21] MEDS ORDERED: PHARMACY ORDERED LAB ONE (21:45)
[2017-01-22] VITALS: BP 104/58; PULSE 77; RESP 18; TEMP 97.2; O2SAT 97
[2017-01-22] MEDS: VANCOMYCIN INJ 750 MG in SODIUM CHLOR 0.9% 250 ML INJ 250 ML IV SCH ×2 (04:31→21:09)
[2017-01-22 08:00] VITALS: BP 129/60; PULSE 75; RESP 16; TEMP 98.2; O2SAT 99
[2017-01-22] MEDS: SODIUM CHLORIDE 0.9% FLUSH 10 ML FLUSH IV FLUSH SCH ×2 (09:00→21:08)
[2017-01-22] MEDS: HYDROmorphone HCL PF 1 MG/ML VIAL IV PUSH PRN ×2 (10:24→17:19)
--- NOTE | 2017-01-22 10:26 | PD.ONC.PN ---
Subjective Subjective Remarks Afebrile overnight. Some improvement in pain and redness in face. Stated she talked to Dr. Jimenes and does not want to have abscess drained again "unless they put me out." Objective Data Date Time Temp Pulse Resp B/P Pulse Ox O2 Delivery O2 Flow Rate FiO2 01/22/17 08:00 98.2 75 16 129/60 99 01/22/17 00:00 97.2 77 18 104/58 97 01/21/17 20:00 97.6 83 18 136/65 98 01/21/17 16:00 96.7 72 16 123/60 97 01/21/17 12:00 98.5 74 17 113/70 98 01/22/17 01/22/17 01/22/17 07:00 15:00 23:00 Intake Total 250 ml Output Total 0 ml Balance 250 ml Result Diagram: 01/21/17 0505 01/21/17 0505 Culture Results Microbiology Date/Time Procedure Status Source Growth 01/20/17 15:55 Aerobic Blood Culture Received Blood Peripheral Pending 01/20/17 15:55 Anaerobic Blood Culture Received Blood Peripheral Pending 01/20/17 16:20 Aerobic Blood Culture - Preliminary Resulted Blood Peripheral NO GROWTH IN 1 DAY 01/20/17 16:20 Anaerobic Blood Culture - Preliminary Resulted Blood Peripheral NO GROWTH IN 1 DAY 01/20/17 16:25 Aerobic Blood Culture - Preliminary Resulted Blood Peripheral NO GROWTH IN 1 DAY 01/20/17 16:25 Anaerobic Blood Culture - Preliminary Resulted Blood Peripheral NO GROWTH IN 1 DAY 01/20/17 19:27 Gram Stain - Final Resulted Wound Face 01/20/17 19:27 Wound Culture - Preliminary Resulted Gram Negative Julio César Administered Medications Medications (Trade) Dose Ordered Sig/Warren Route PRN Reason Start Time Stop Time Status Last Admin Dose Admin Sodium Chloride (NS Flush) 2 ml BID IV FLUSH 01/20/17 21:00 01/21/17 20:49 Ondansetron HCl (Zofran Inj) 4 mg Q6H PRN IVP NAUSEA OR VOMITING 01/20/17 17:00 01/21/17 10:17 Acetaminophen/ Hydrocodone Bitart ([place] 5-325 Mg) 1 tab Q4H PRN PO PAIN 1-5 01/20/17 17:15 01/21/17 14:06 Hydromorphone HCl (Dilaudid Pf Inj) 1 mg Q4H PRN IV PUSH PAIN 6-10 01/20/17 17:15 01/21/17 20:50 Alprazolam (Xanax) 0.5 mg Q8H PRN PO ANXIETY 01/20/17 17:15 01/21/17 16:57 Bupropion HCl 100 mg 100 mg Q12HR PO 01/20/17 21:00 01/21/17 20:49 Vancomycin HCl 750 mg/Sodium Chloride 257.5 ml @ 250 mls/hr Q18H IV 01/21/17 10:00 01/22/17 04:31 Ceftriaxone Sodium/Sodium Chloride (Rocephin Inj/NS Inj) 100 ml @ 200 mls/hr Q24H IV 01/21/17 15:00 01/21/17 16:12 Objective Remarks GENERAL: Middle aged female, upright in bed in nad. SKIN: Warm and dry. HEAD: Normocephalic. 3cm fluid filled sac along inferior tear duct right eye. there is surrounding inflammation but I do not see any streaking erythema. EYES: No injection or drainage. NECK: Supple, trachea midline CARDIOVASCULAR: Regular rate and rhythm RESPIRATORY: Breath sounds equal bilaterally. No accessory muscle use. GASTROINTESTINAL: Abdomen soft, non-tender, nondistended. EXTREMITIES: No cyanosis NEUROLOGICAL: No obvious focal deficit. Awake, alert, and oriented x3. Assessment/Plan Problem List: (1) Acute abscess of maxillary sinus Status: Acute Plan: --presents with abscess and right maxillary sinus extending to the infraorbital area in the midst of her treatment for diffuse large B-cell lymphoma. --on antibiotics per ID --ENT consulted and recommends sinus saline and antibiotics (2) Diffuse large B-cell lymphoma Status: Chronic Plan: --will need current infection to resolve before further decision regarding chemotherapy can be made Assessment 66y/o female admitted with right maxillary/periorbital abscess. Patient in the midst of treatment for a diffuse large B-cell lymphoma. 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 History of osteomyelitis and right maxillary sinus disease. Anxiety. Hypertension Chemotherapy induced anemia. Plan 1. continue antibiotics 2. monitor CBC 3. supportive care Attending Statement The exam, history, and the medical decision-making described in the above note were completed with the assistance of the mid-level provider. I reviewed and agree with the findings presented. I attest that I had a [id number]-[id number] encounter with the patient on the same day, and personally performed and documented my assessment and findings in the medical record. Feels better, large loculated area in the inner cantus of R eyes. Nasal wash improving. Saline will be ordered for bedside to keep nasal passages moist. Appreciate ID consult, cont Abx. Chemo on hold until resolution infection. Problem Qualifiers (1) Diffuse large B-cell lymphoma: Qualified Code: C83.38 - Diffuse large B-cell lymphoma of lymph nodes of multiple regions Claritza Marie Jan 22, 2017 10:26 Meredith Cordero MD Jan 22, 2017 20:15
[2017-01-22] MEDS: buPROPion HCL 100 MG SUSTAINED RELEASE TAB PO SCH ×2 (10:29→21:09)
[2017-01-22] MEDS: ALPRAZolam 0.5 MG TAB PO PRN (10:48)
[2017-01-22 12:00] VITALS: BP 141/74; PULSE 76; RESP 17; TEMP 98.5; O2SAT 97
[2017-01-22 12:07] LABS: AUTOMATED NEUTROPHIL # 12.4 TH/MM3 (1.8-7.7); BASOPHIL # 0.1 TH/MM3 (0-0.2); BASOPHIL % 0.4 % (0.0-2.0); EOSINOPHIL # 0.2 TH/MM3 (0-0.4); EOSINOPHIL % 1.2 % (0.0-4.0); HEMATOCRIT 25.6 % (35.0-46.0); HEMO FLAGS AUTO DIFF; LYMPH % 5.9 % (9.0-44.0); LYMPHOCYTE # 0.8 TH/MM3 (1.0-4.8); MEAN CELL VOLUME 87.1 FL (80.0-100.0); MEAN CORPUSCULAR HEMOGLOBIN 29.1 PG (27.0-34.0); MEAN CORPUSCULAR HGB CONC 33.5 % (32.0-36.0); MONO % 5.7 % (0.0-8.0); NEUT % 86.8 % (16.0-70.0); PLATELET COUNT 336 TH/MM3 (150-450); RED BLOOD COUNT 2.94 MIL/MM3 (4.00-5.30); RED CELL DISTRIBUTION WIDTH 17.9 % (11.6-17.2); WHITE BLOOD COUNT 14.3 TH/MM3 (4.0-11.0)
--- NOTE | 2017-01-22 12:08 | HHI.IDPN ---
Note Infectious Disease Note Patient says she feels okay. Has more swelling at the nasal lower eyelid but not erythematous. Denies pain. No problems with vision. Afebrile. Wound culture has Klebsiella oxytoca. The patient was started on intravenous vancomycin. She tells me that the redness is improved and the swelling is improved. She is able to almost completely open her eye today. She describes having headache at the left parietal area of the head. She states that she gets migraine headache and that could be part of her migraine headache. She stated that the vision in the right eye slightly blurred. PAST MEDICAL HISTORY 1. Non-Hodgkin's lymphoma, diffuse large B-cell of the sinus. 2. 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 3. Hypertension. 4. Anxiety. 5. Anemia 6. Tooth extraction 7. Appendectomy 8. Tonsillectomy. ALLERGIES NO KNOWN DRUG ALLERGIES. MEDICATIONS 1. Vancomycin. 2. Ceftriaxone. OBJECTIVE: Vital Signs Date Time Temp Pulse Resp B/P Pulse Ox O2 Delivery O2 Flow Rate FiO2 01/22/17 08:00 98.2 75 16 129/60 99 01/22/17 00:00 97.2 77 18 104/58 97 01/21/17 20:00 97.6 83 18 136/65 98 01/21/17 16:00 96.7 72 16 123/60 97 01/21/17 01/21/17 01/22/17 15:00 23:00 07:00 Intake Total 590 ml 240 ml 250 ml Output Total 0 ml Balance 590 ml 240 ml 250 ml Intake Oral 340 ml 240 ml 0 ml IV Total 250 ml 0 ml 250 ml Output Urine Total 0 ml # Voids 4 2 # Bowel Movements 0 0 Laboratory Tests Test 01/20/17 01/21/17 14:32 05:05 White Blood Count 16.1 TH/MM3 13.2 TH/MM3 Red Blood Count 2.94 MIL/MM3 2.83 MIL/MM3 Hemoglobin 8.5 GM/DL 8.3 GM/DL Hematocrit 25.8 % 25.1 % Mean Corpuscular Volume 88.0 FL 88.4 FL Mean Corpuscular Hemoglobin 28.9 PG 29.2 PG Mean Corpuscular Hemoglobin 32.8 % 33.0 % Concent Red Cell Distribution Width 18.4 % 17.7 % Platelet Count 273 TH/MM3 266 TH/MM3 Mean Platelet Volume 7.0 FL 6.6 FL Neutrophils (%) (Auto) 82.9 % 83.3 % Lymphocytes (%) (Auto) 7.2 % 7.4 % Monocytes (%) (Auto) 8.2 % 7.4 % Eosinophils (%) (Auto) 1.2 % 1.5 % Basophils (%) (Auto) 0.5 % 0.4 % Neutrophils # (Auto) 13.3 TH/MM3 11.1 TH/MM3 Lymphocytes # (Auto) 1.2 TH/MM3 1.0 TH/MM3 Monocytes # (Auto) 1.3 TH/MM3 1.0 TH/MM3 Eosinophils # (Auto) 0.2 TH/MM3 0.2 TH/MM3 Basophils # (Auto) 0.1 TH/MM3 0.0 TH/MM3 CBC Comment AUTO DIFF AUTO DIFF Differential Total Cells 100 100 Counted Neutrophils % (Manual) 69 % 63 % Band Neutrophils % 11 % 24 % Lymphocytes % 10 % 8 % Monocytes % 8 % 2 % Basophils % 1 % Neutrophils # (Manual) 13.0 TH/MM3 11.5 TH/MM3 Myelocytes 1 % Differential Comment FINAL DIFF FINAL DIFF MANUAL MANUAL Toxic Granulation 1+ 3+ Platelet Estimate NORMAL NORMAL Platelet Morphology Comment NORMAL NORMAL Red Cell Morphology Comment NORMAL Erythrocyte Sedimentation Rate GREATER THAN 140 mm/hr Eosinophils % 3 % Nucleated Red Blood Cells 1 /100 WBC Laboratory Tests Test 01/20/17 01/20/17 01/21/17 14:32 14:42 05:05 Sodium Level 138 MEQ/L 141 MEQ/L Potassium Level 3.6 MEQ/L 3.6 MEQ/L Chloride Level 104 MEQ/L 107 MEQ/L Carbon Dioxide Level 26.1 MEQ/L 27.0 MEQ/L Anion Gap 8 MEQ/L 7 MEQ/L Blood Urea Nitrogen 10 MG/DL 6 MG/DL Creatinine 0.69 MG/DL 0.67 MG/DL Estimat Glomerular Filtration 86 ML/MIN 89 ML/MIN Rate Random Glucose 97 MG/DL 101 MG/DL Calcium Level 9.1 MG/DL 8.8 MG/DL Total Bilirubin 0.2 MG/DL Aspartate Amino Transf 11 U/L (AST/SGOT) Alanine Aminotransferase 19 U/L (ALT/SGPT) Alkaline Phosphatase 176 U/L C-Reactive Protein 6.29 MG/DL Total Protein 7.4 GM/DL Albumin 3.4 GM/DL Lactic Acid Level 0.9 mmol/L Microbiology Date/Time Procedure Status Source Growth 01/20/17 15:55 Aerobic Blood Culture Received Blood Peripheral Pending 01/20/17 15:55 Anaerobic Blood Culture Received Blood Peripheral Pending 01/20/17 16:20 Aerobic Blood Culture - Preliminary Resulted Blood Peripheral NO GROWTH IN 2 DAYS 01/20/17 16:20 Anaerobic Blood Culture - Preliminary Resulted Blood Peripheral NO GROWTH IN 2 DAYS 01/20/17 16:25 Aerobic Blood Culture - Preliminary Resulted Blood Peripheral NO GROWTH IN 2 DAYS 01/20/17 16:25 Anaerobic Blood Culture - Preliminary Resulted Blood Peripheral NO GROWTH IN 2 DAYS 01/20/17 19:27 Gram Stain - Final Resulted Wound Face 01/20/17 19:27 Wound Culture - Preliminary Resulted Klebsiella Oxytoca IMAGING: Chest X-Ray 01/20/17 1659 Signed Impressions: Service Date/Time: Wednesday, January 20, 2017 17:50 - CONCLUSION: No acute cardiopulmonary abnormality is identified. Leandro Lopez MD Maxillofacial CT 01/20/17 0000 Signed Impressions: Service Date/Time: Friday, January 20, 2017 16:00 - CONCLUSION: 1. 1.3 x 1.8 x 1.6 cm fluid collection along the medial aspect of the right orbit concerning for abscess. 2. Permeative, destructive changes involving the maxilla. 3. Complete opacification of the right maxillary sinus with permeative and destructive changes involving the inferior aspect of maxillary sinus. 4. Diffuse bony thickening around the left maxillary sinus. 5. Mucoperiosteal sinus disease involving the ethmoid sinuses and frontal sinus. 6. The fluid collection along the medial aspect of the right orbit is significantly worse than seen on previous. Compa Henry MD PHYSICAL EXAMINATION: GENERAL: No acute distress. She is awake and alert. HEAD, EYES, EARS, NOSE, AND THROAT: Head is atraumatic. The right periorbital area has little erythema. (+) swelling at the lower eye lid. The eye is opened fully and the eye globe appears intact. There is tenderness on palpation around the left lower eyelid. Extraocular movements grossly intact. Pupils reactive to light. No icterus. Oropharynx no visible lesions. The patient is edentulous of the upper. NECK: Supple. No adenopathy. LUNGS: Clear to auscultation. HEART: Regular rate and rhythm. No murmurs. No rubs. No gallops. ABDOMEN: Bowel sounds present, soft, no tenderness. RECTAL: The rectal was not preformed. EXTREMITIES: No clubbing, cyanosis or edema. SKIN: No diffuse rash. NEUROLOGIC: Nonfocal. PSYCHIATRIC: The patient is calm and cooperative. IMPRESSION 1. Periorbital cellulitis. 2. Maxillary sinus abscess. Klebsiella oxytoca. 3. Patient with lymphoma of the maxillary sinus who is undergoing chemotherapy. Last chemotherapy received on January 08. 6. History of osteomyelitis of the right maxillary sinus. The patient may be getting occlusion of the sinus and that is leading to infection including current episodes. RECOMMENDATIONS 1. Stop vancomycin. 2. Change ceftriaxone to Levaquin. The Klebsiella is resistant to Ceftriaxone. Give IV initially and switch to PO on discharge. 3. Would give antibiotics x 8 weeks given the destructive changes of the maxilla on CT. 4. Can be discharged if ENT clears after final culture report. Nicanor Lucas MD Jan 22, 2017 12:08
[2017-01-22] MEDS: LEVOFLOXACIN 750 MG PREMIX INJ 150 ML IV SCH (12:22)
[2017-01-22 12:37] LABS: BANDS 11 % (0-6); EOSINOPHILS 1 % (0-4); METAMYELOCYTES 1 % (0-1); NEUTROPHIL # MANUAL DIFF 13.2 TH/MM3 (1.8-7.7); POLYS (SEG NEUTROPHILS) 80 % (16-70); TOXIC GRANULATION 1+ (NORMAL); WBC DIFF SAMPLE 100
[2017-01-22 12:38] LABS: SCAN/DIFF FINAL DIFF MANUAL
[2017-01-22] MEDS: ACETAMINOPHEN/HYDROcodone 325 MG/5 MG TAB PO PRN (12:51)
--- NOTE | 2017-01-22 14:50 | HHI.PR ---
Subjective Remarks No new complaints. Objective Vitals Vital Signs Date Time Temp Pulse Resp B/P Pulse Ox O2 Delivery O2 Flow Rate FiO2 01/22/17 12:00 98.5 76 17 141/74 97 01/22/17 08:00 98.2 75 16 129/60 99 01/22/17 00:00 97.2 77 18 104/58 97 01/21/17 20:00 97.6 83 18 136/65 98 01/21/17 16:00 96.7 72 16 123/60 97 01/21/17 01/21/17 01/22/17 15:00 23:00 07:00 Intake Total 590 ml 240 ml 250 ml Output Total 0 ml Balance 590 ml 240 ml 250 ml Intake Oral 340 ml 240 ml 0 ml IV Total 250 ml 0 ml 250 ml Output Urine Total 0 ml # Voids 4 2 # Bowel Movements 0 0 Result Diagram: 01/22/17 1146 01/21/17 0505 Imaging Last [address] 01/20/17 0000 Signed Impressions: Service Date/Time: Friday, January 20, 2017 16:00 - CONCLUSION: 1. 1.3 x 1.8 x 1.6 cm fluid collection along the medial aspect of the right orbit concerning for abscess. 2. Permeative, destructive changes involving the maxilla. 3. Complete opacification of the right maxillary sinus with permeative and destructive changes involving the inferior aspect of maxillary sinus. 4. Diffuse bony thickening around the left maxillary sinus. 5. Mucoperiosteal sinus disease involving the ethmoid sinuses and frontal sinus. 6. The fluid collection along the medial aspect of the right orbit is significantly worse than seen on previous. Compa Henry MD Objective Remarks GENERAL: This is a well-nourished, well-developed patient, in no apparent distress. CARDIOVASCULAR: Regular rate and rhythm without murmurs, gallops, or rubs. RESPIRATORY: Clear to auscultation. Breath sounds equal bilaterally. No wheezes , rales, or rhonchi. GASTROINTESTINAL: Abdomen soft, non-tender, nondistended. Normal active bowel sounds MUSCULOSKELETAL: Extremities without clubbing, cyanosis, or edema. NEURO: Alert & Oriented x4 to person, place, time, situation. Moves all ext x4 A/P Problem List: (1) Facial abscess Status: Acute Plan: - comgmt with ID, Oncology, Maxillofacial Surgery - h/o osteomyelitis of the right maxillary sinus - facial abscess drained in ER 01/20/17 - wound culture (01/20/17) --> Klebsiella - Blood cultures (01/20/17) --> NGTD - Vancomycin (01/20 - present) - Rocephin (01/21 - present) - Appreciate input from specialists - Case d/w ENT, Dr. Micky Jimenes. He will consult. - conservative measures with antibiotics vs. surgical procedure - WBC 14.3K (01/22/17) - norco/dilaudid prn pain - Case reviewed with Radiology, changes in maxilla are unchanged from prior CT - Case reviewed with ID, will give 2 weeks total of levaquin - anticipate d/c to home 01/25/17 (2) Acute abscess of maxillary sinus Status: Acute Plan: - see above (3) Periorbital cellulitis of right eye Status: Acute Plan: - see above (4) Diffuse large B-cell lymphoma Status: Chronic Plan: - Pt receiving R-CHOP per Dr. Cordero - Pt has been tolerating R-CHOP well - appreciate input from Dr. Cordero (5) Anxiety Status: Chronic Plan: - buspirone, xanax prn Problem Qualifiers (1) Diffuse large B-cell lymphoma: Qualified Code: C83.38 - Diffuse large B-cell lymphoma of lymph nodes of multiple regions Juliocesar Camarena DO Jan 22, 2017 14:50
[2017-01-22 16:00] VITALS: BP 126/66; PULSE 72; RESP 16; TEMP 97.4; O2SAT 96
[2017-01-22] MEDS: ONDANSETRON HCL 4 MG/2 ML VIAL IVP PRN (17:18)
[2017-01-22 20:00] VITALS: BP 139/65; PULSE 60; RESP 18; TEMP 97.2; O2SAT 99
[2017-01-22] MEDS ORDERED: PHARMACY ORDERED LAB ONE (21:45)
[2017-01-23] VITALS: BP 115/63; PULSE 72; RESP 18; TEMP 97.1; O2SAT 98
[2017-01-23 05:21] LABS: BASOPHIL # 0.1 TH/MM3 (0-0.2); BASOPHIL % 0.5 % (0.0-2.0); EOSINOPHIL # 0.1 TH/MM3 (0-0.4); EOSINOPHIL % 1.2 % (0.0-4.0); HEMATOCRIT 24.6 % (35.0-46.0); HEMO FLAGS DIFF FINAL; LYMPH % 5.6 % (9.0-44.0); LYMPHOCYTE # 0.7 TH/MM3 (1.0-4.8); MEAN CELL VOLUME 87.5 FL (80.0-100.0); MEAN CORPUSCULAR HEMOGLOBIN 29.5 PG (27.0-34.0); MEAN CORPUSCULAR HGB CONC 33.7 % (32.0-36.0); MONO % 8.4 % (0.0-8.0); NEUT % 84.3 % (16.0-70.0); PLATELET COUNT 375 TH/MM3 (150-450); RED BLOOD COUNT 2.81 MIL/MM3 (4.00-5.30); RED CELL DISTRIBUTION WIDTH 18.7 % (11.6-17.2); WHITE BLOOD COUNT 11.8 TH/MM3 (4.0-11.0)
[2017-01-23 08:00] VITALS: BP 119/59; PULSE 69; RESP 16; TEMP 98; O2SAT 96
[2017-01-23] MEDS: buPROPion HCL 100 MG SUSTAINED RELEASE TAB PO SCH ×2 (08:39→21:04)
[2017-01-23] MEDS: SODIUM CHLORIDE 0.9% FLUSH 10 ML FLUSH IV FLUSH SCH ×2 (08:39→21:05)
--- NOTE | 2017-01-23 10:05 | PD.ONC.PN ---
Subjective Subjective Remarks Afebrile overnight. Patient states abscess started draining yesterday after she used a warm compress on it. She is feeling better since it started draining. Objective Data Date Time Temp Pulse Resp B/P Pulse Ox O2 Delivery O2 Flow Rate FiO2 01/23/17 08:00 98.0 69 16 119/59 96 01/23/17 00:00 97.1 72 18 115/63 98 01/22/17 20:00 97.2 60 18 139/65 99 01/22/17 16:00 97.4 72 16 126/66 96 01/22/17 12:00 98.5 76 17 141/74 97 01/23/17 01/23/17 01/23/17 07:00 15:00 23:00 Intake Total 120 ml Balance 120 ml Result Diagram: 01/23/17 0500 01/21/17 0505 Laboratory Results Laboratory Tests Test 01/22/17 01/22/17 01/23/17 11:46 21:05 05:00 White Blood Count 14.3 TH/MM3 11.8 TH/MM3 Red Blood Count 2.94 MIL/MM3 2.81 MIL/MM3 Hemoglobin 8.6 GM/DL 8.3 GM/DL Hematocrit 25.6 % 24.6 % Mean Corpuscular Volume 87.1 FL 87.5 FL Mean Corpuscular Hemoglobin 29.1 PG 29.5 PG Mean Corpuscular Hemoglobin 33.5 % 33.7 % Concent Red Cell Distribution Width 17.9 % 18.7 % Platelet Count 336 TH/MM3 375 TH/MM3 Mean Platelet Volume 6.7 FL 6.6 FL Neutrophils (%) (Auto) 86.8 % 84.3 % Lymphocytes (%) (Auto) 5.9 % 5.6 % Monocytes (%) (Auto) 5.7 % 8.4 % Eosinophils (%) (Auto) 1.2 % 1.2 % Basophils (%) (Auto) 0.4 % 0.5 % Neutrophils # (Auto) 12.4 TH/MM3 10.0 TH/MM3 Lymphocytes # (Auto) 0.8 TH/MM3 0.7 TH/MM3 Monocytes # (Auto) 0.8 TH/MM3 1.0 TH/MM3 Eosinophils # (Auto) 0.2 TH/MM3 0.1 TH/MM3 Basophils # (Auto) 0.1 TH/MM3 0.1 TH/MM3 CBC Comment AUTO DIFF DIFF FINAL Differential Total Cells 100 Counted Neutrophils % (Manual) 80 % Band Neutrophils % 11 % Lymphocytes % 5 % Monocytes % 2 % Eosinophils % 1 % Neutrophils # (Manual) 13.2 TH/MM3 Metamyelocytes 1 % Differential Comment FINAL DIFF MANUAL Toxic Granulation 1+ Vancomycin Level Trough 6.2 MCG/ML Culture Results Microbiology Date/Time Procedure Status Source Growth 01/20/17 15:55 Aerobic Blood Culture Received Blood Peripheral Pending 01/20/17 15:55 Anaerobic Blood Culture Received Blood Peripheral Pending 01/20/17 16:20 Aerobic Blood Culture - Preliminary Resulted Blood Peripheral NO GROWTH IN 2 DAYS 01/20/17 16:20 Anaerobic Blood Culture - Preliminary Resulted Blood Peripheral NO GROWTH IN 2 DAYS 01/20/17 16:25 Aerobic Blood Culture - Preliminary Resulted Blood Peripheral NO GROWTH IN 2 DAYS 01/20/17 16:25 Anaerobic Blood Culture - Preliminary Resulted Blood Peripheral NO GROWTH IN 2 DAYS 01/20/17 19:27 Gram Stain - Final Resulted Wound Face 01/20/17 19:27 Wound Culture - Preliminary Resulted Klebsiella Oxytoca Administered Medications Medications (Trade) Dose Ordered Sig/Warren Route PRN Reason Start Time Stop Time Status Last Admin Dose Admin Sodium Chloride (NS Flush) 2 ml BID IV FLUSH 01/20/17 21:00 01/23/17 08:39 Ondansetron HCl (Zofran Inj) 4 mg Q6H PRN IVP NAUSEA OR VOMITING 01/20/17 17:00 01/22/17 17:18 Acetaminophen/ Hydrocodone Bitart ([place] 5-325 Mg) 1 tab Q4H PRN PO PAIN 1-5 01/20/17 17:15 01/22/17 12:51 Hydromorphone HCl (Dilaudid Pf Inj) 1 mg Q4H PRN IV PUSH PAIN 6-10 01/20/17 17:15 01/22/17 17:19 Alprazolam (Xanax) 0.5 mg Q8H PRN PO ANXIETY 01/20/17 17:15 01/22/17 10:48 Bupropion HCl 100 mg 100 mg Q12HR PO 01/20/17 21:00 01/23/17 08:39 Vancomycin HCl 750 mg/Sodium Chloride 257.5 ml @ 250 mls/hr Q18H IV 01/21/17 10:00 01/22/17 21:09 Levofloxacin/ Dextrose (Levaquin 750 Mg Premix Inj) 150 ml @ 100 mls/hr Q24H IV 01/22/17 13:00 01/22/17 12:22 Objective Remarks GENERAL: Middle aged female upright in bed. SKIN: Warm and dry. HEAD: Normocephalic. 3cm fluid filled sac along inferior tear duct right eye is open and drying out. EYES: No injection or drainage. NECK: Supple, trachea midline CARDIOVASCULAR: Regular rate and rhythm RESPIRATORY: Breath sounds equal bilaterally. No accessory muscle use. GASTROINTESTINAL: Abdomen soft, non-tender, nondistended. EXTREMITIES: No cyanosis NEUROLOGICAL: awake and alert, normal speech. moving all extremities Assessment/Plan Problem List: (1) Acute abscess of maxillary sinus Status: Acute Plan: --improving, is now drying out --on Vanco and Levaquin --ENT consulted and recommends sinus saline and antibiotics (2) Diffuse large B-cell lymphoma Status: Chronic Plan: --will need current infection to resolve before further decision regarding chemotherapy can be made Assessment 66y/o female admitted with right maxillary/periorbital abscess. Patient in the midst of treatment for a diffuse large B-cell lymphoma. 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 History of osteomyelitis and right maxillary sinus disease. Anxiety. Hypertension Chemotherapy induced anemia. Plan 1. continue antibiotics 2. monitor CBC 3. supportive care Attending Statement The exam, history, and the medical decision-making described in the above note were completed with the assistance of the mid-level provider. I reviewed and agree with the findings presented. I attest that I had a [id number] encounter with the patient on the same day, and personally performed and documented my assessment and findings in the medical record. Inner cantus swelling improved, drained. Erythema improved. Continue to use nasal rinse/wash. Abx continue. Afebrile. Problem Qualifiers (1) Diffuse large B-cell lymphoma: Qualified Code: C83.38 - Diffuse large B-cell lymphoma of lymph nodes of multiple regions Claritza Marie Jan 23, 2017 10:05 Meredith Cordero MD Jan 23, 2017 22:19
[2017-01-23 12:00] VITALS: BP 110/68; PULSE 81; RESP 17; TEMP 99.8; O2SAT 97
[2017-01-23] MEDS: LEVOFLOXACIN 750 MG PREMIX INJ 150 ML IV SCH (12:28)
[2017-01-23] MEDS: ONDANSETRON HCL 4 MG/2 ML VIAL IVP PRN (12:28)
[2017-01-23 16:00] VITALS: BP 119/67; PULSE 75; RESP 16; TEMP 98; O2SAT 98
--- NOTE | 2017-01-23 16:28 | HHI.PR ---
Subjective Remarks No new complaints. Objective Vitals Vital Signs Date Time Temp Pulse Resp B/P Pulse Ox O2 Delivery O2 Flow Rate FiO2 01/23/17 16:00 98.0 75 16 119/67 98 01/23/17 13:30 01/23/17 12:00 99.8 81 17 110/68 97 01/23/17 10:02 01/23/17 08:00 98.0 69 16 119/59 96 01/23/17 00:00 97.1 72 18 115/63 98 01/22/17 20:00 97.2 60 18 139/65 99 01/22/17 01/22/17 01/23/17 15:00 23:00 07:00 Intake Total 340 ml 240 ml 120 ml Balance 340 ml 240 ml 120 ml Intake Oral 340 ml 240 ml 120 ml # Voids 4 1 2 # Bowel Movements 0 0 Result Diagram: 01/23/17 0500 01/21/17 0505 Imaging Last [address] 01/20/17 0000 Signed Impressions: Service Date/Time: Friday, January 20, 2017 16:00 - CONCLUSION: 1. 1.3 x 1.8 x 1.6 cm fluid collection along the medial aspect of the right orbit concerning for abscess. 2. Permeative, destructive changes involving the maxilla. 3. Complete opacification of the right maxillary sinus with permeative and destructive changes involving the inferior aspect of maxillary sinus. 4. Diffuse bony thickening around the left maxillary sinus. 5. Mucoperiosteal sinus disease involving the ethmoid sinuses and frontal sinus. 6. The fluid collection along the medial aspect of the right orbit is significantly worse than seen on previous. Compa Henry MD Objective Remarks GENERAL: This is a well-nourished, well-developed patient, in no apparent distress. CARDIOVASCULAR: Regular rate and rhythm without murmurs, gallops, or rubs. RESPIRATORY: Clear to auscultation. Breath sounds equal bilaterally. No wheezes , rales, or rhonchi. GASTROINTESTINAL: Abdomen soft, non-tender, nondistended. Normal active bowel sounds MUSCULOSKELETAL: Extremities without clubbing, cyanosis, or edema. NEURO: Alert & Oriented x4 to person, place, time, situation. Moves all ext x4 skin: abscess, near right eye appears much improved A/P Problem List: (1) Facial abscess Status: Acute Plan: - comgmt with ID, Oncology, Maxillofacial Surgery - h/o osteomyelitis of the right maxillary sinus - facial abscess drained in ER 01/20/17 - wound culture (01/20/17) --> Klebsiella - Blood cultures (01/20/17) --> NGTD - Vancomycin (01/20 - present) - Rocephin (01/21 - 01/22) - Levaquin (01/22 - present) - Appreciate input from specialists - Case d/w ENT, Dr. Micky Jimenes. He will consult. - conservative measures with antibiotics vs. surgical procedure - WBC 14.3K (01/22/17) - norco/dilaudid prn pain - Case reviewed with Radiology, changes in maxilla are unchanged from prior CT - Case reviewed with ID, will give 2 weeks total of levaquin - anticipate d/c to home 01/25/17 - repeat CBC in AM (2) Acute abscess of maxillary sinus Status: Acute Plan: - see above (3) Periorbital cellulitis of right eye Status: Acute Plan: - see above (4) Diffuse large B-cell lymphoma Status: Chronic Plan: - Pt receiving R-CHOP per Dr. Cordero - Pt has been tolerating R-CHOP well - appreciate input from Dr. Cordero (5) Anxiety Status: Chronic Plan: - buspirone, xanax prn Problem Qualifiers (1) Diffuse large B-cell lymphoma: Qualified Code: C83.38 - Diffuse large B-cell lymphoma of lymph nodes of multiple regions Juliocesar Camarena DO Jan 23, 2017 16:28
[2017-01-23] MEDS: MAGNESIUM HYDROXIDE SUSP 30 ML CUP PO PRN (16:43)
[2017-01-23 20:00] VITALS: BP 129/64; PULSE 78; RESP 22; TEMP 99.2; O2SAT 98
[2017-01-23] MEDS: VANCOMYCIN INJ 750 MG in SODIUM CHLOR 0.9% 250 ML INJ 250 ML IV SCH (20:00)
[2017-01-24] VITALS: BP 105/56; PULSE 72; RESP 20; TEMP 99.8; O2SAT 99
[2017-01-24 05:19] LABS: AUTOMATED NEUTROPHIL # 8.7 TH/MM3 (1.8-7.7); BASOPHIL # 0.1 TH/MM3 (0-0.2); BASOPHIL % 0.5 % (0.0-2.0); EOSINOPHIL # 0.1 TH/MM3 (0-0.4); HEMO FLAGS DIFF FINAL; LYMPHOCYTE # 0.9 TH/MM3 (1.0-4.8); MEAN CELL VOLUME 87.7 FL (80.0-100.0); MEAN CORPUSCULAR HGB CONC 34.2 % (32.0-36.0); MONO % 9.8 % (0.0-8.0); NEUT % 80.7 % (16.0-70.0); PLATELET COUNT 425 TH/MM3 (150-450); RED BLOOD COUNT 2.74 MIL/MM3 (4.00-5.30); RED CELL DISTRIBUTION WIDTH 18.4 % (11.6-17.2); WHITE BLOOD COUNT 10.8 TH/MM3 (4.0-11.0)
[2017-01-24 08:00] VITALS: BP 130/66; PULSE 66; RESP 17; TEMP 96.6; O2SAT 99
[2017-01-24] MEDS: MAGNESIUM HYDROXIDE SUSP 30 ML CUP PO PRN (08:34)
[2017-01-24] MEDS: buPROPion HCL 100 MG SUSTAINED RELEASE TAB PO SCH ×2 (08:34→20:30)
[2017-01-24] MEDS: VANCOMYCIN INJ 750 MG in SODIUM CHLOR 0.9% 250 ML INJ 250 ML IV SCH ×2 (08:34→20:30)
[2017-01-24] MEDS: SODIUM CHLORIDE 0.9% FLUSH 10 ML FLUSH IV FLUSH SCH ×2 (08:35→20:30)
[2017-01-24] MEDS ORDERED: SODIUM CHLORIDE 0.65% NASAL SPRAY 45 ML BTL EACH NARE PRN (09:15)
[2017-01-24] MEDS ORDERED: ARTIFICIAL TEARS OPTH SOLN 15 ML BTL EACH EYE PRN (09:15)
--- NOTE | 2017-01-24 10:02 | PD.ONC.PN ---
Subjective Subjective Remarks Afebrile overnight. States she never got the nasal saline. Also requesting eye drops as sometimes the pus from her abscess gets in her eye , irritating it. Otherwise feeling improved. Objective Data Date Time Temp Pulse Resp B/P Pulse Ox O2 Delivery O2 Flow Rate FiO2 01/24/17 08:00 96.6 66 17 130/66 99 01/24/17 00:00 99.8 72 20 105/56 99 01/23/17 20:00 99.2 78 22 129/64 98 01/23/17 17:27 01/23/17 16:00 98.0 75 16 119/67 98 01/23/17 13:30 01/23/17 12:00 99.8 81 17 110/68 97 01/23/17 10:02 Result Diagram: 01/24/17 0500 01/21/17 0505 Laboratory Results Laboratory Tests Test 01/24/17 05:00 White Blood Count 10.8 TH/MM3 Red Blood Count 2.74 MIL/MM3 Hemoglobin 8.2 GM/DL Hematocrit 24.0 % Mean Corpuscular Volume 87.7 FL Mean Corpuscular Hemoglobin 30.0 PG Mean Corpuscular Hemoglobin 34.2 % Concent Red Cell Distribution Width 18.4 % Platelet Count 425 TH/MM3 Mean Platelet Volume 6.4 FL Neutrophils (%) (Auto) 80.7 % Lymphocytes (%) (Auto) 8.0 % Monocytes (%) (Auto) 9.8 % Eosinophils (%) (Auto) 1.0 % Basophils (%) (Auto) 0.5 % Neutrophils # (Auto) 8.7 TH/MM3 Lymphocytes # (Auto) 0.9 TH/MM3 Monocytes # (Auto) 1.1 TH/MM3 Eosinophils # (Auto) 0.1 TH/MM3 Basophils # (Auto) 0.1 TH/MM3 CBC Comment DIFF FINAL Differential Comment Administered Medications Medications (Trade) Dose Ordered Sig/Warren Route PRN Reason Start Time Stop Time Status Last Admin Dose Admin Sodium Chloride (NS Flush) 2 ml BID IV FLUSH 01/20/17 21:00 01/24/17 08:35 Ondansetron HCl (Zofran Inj) 4 mg Q6H PRN IVP NAUSEA OR VOMITING 01/20/17 17:00 01/23/17 12:28 Acetaminophen/ Hydrocodone Bitart ([place] 5-325 Mg) 1 tab Q4H PRN PO PAIN 1-5 01/20/17 17:15 01/22/17 12:51 Hydromorphone HCl (Dilaudid Pf Inj) 1 mg Q4H PRN IV PUSH PAIN 6-10 01/20/17 17:15 01/22/17 17:19 Alprazolam (Xanax) 0.5 mg Q8H PRN PO ANXIETY 01/20/17 17:15 01/22/17 10:48 Bupropion HCl 100 mg 100 mg Q12HR PO 01/20/17 21:00 01/24/17 08:34 Levofloxacin/ Dextrose 150 ml @ 100 mls/hr Q24H IV 01/22/17 13:00 01/23/17 12:28 Vancomycin HCl/ Sodium Chloride (Vancomycin Inj/ NS 250 ml Inj) 257.5 ml @ 250 mls/hr Q12H IV 01/23/17 20:00 01/24/17 08:34 Magnesium Hydroxide (Milk Of Magntete Limary jane) 30 ml Q12H PRN PO MILD - MODERATE CONSTIPATION 01/23/17 16:30 01/24/17 08:34 Objective Remarks GENERAL: Middle aged female upright in bed. SKIN: Warm and dry. HEAD: Normocephalic. lesion inferior to right eye continuing to dry out, some pus drainage. EYES: No injection or drainage. NECK: Supple, trachea midline CARDIOVASCULAR: Regular rate and rhythm RESPIRATORY: Breath sounds equal bilaterally. No accessory muscle use. GASTROINTESTINAL: Abdomen soft, non-tender, nondistended. EXTREMITIES: No cyanosis NEUROLOGICAL: aox3. normal speech. Assessment/Plan Problem List: (1) Acute abscess of maxillary sinus Status: Acute Plan: --improving, is now drying out --on Vanco and Levaquin --ENT consulted and recommends sinus saline and antibiotics (2) Diffuse large B-cell lymphoma Status: Chronic Plan: --resume therapy outpatient. Assessment 66y/o female admitted with right maxillary/periorbital abscess. Patient in the midst of treatment for a diffuse large B-cell lymphoma. 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 History of osteomyelitis and right maxillary sinus disease. Anxiety. Hypertension Chemotherapy induced anemia. Plan 1. continue antibiotics 2. start nasal saline PRN and eye drops PRN 3. monitor CBC Attending Statement The exam, history, and the medical decision-making described in the above note were completed with the assistance of the mid-level provider. I reviewed and agree with the findings presented. I attest that I had a [id number] encounter with the patient on the same day, and personally performed and documented my assessment and findings in the medical record. Dry crust inner R eye, mild periorbital swelling. Mild erythema at the base/inferiorly. No fevers. Abx therapy switch to oral. Need to delay chemo until resolution of infection. Problem Qualifiers (1) Diffuse large B-cell lymphoma: Qualified Code: C83.38 - Diffuse large B-cell lymphoma of lymph nodes of multiple regions Claritza Marie Jan 24, 2017 10:02 Meredith Cordero MD Jan 24, 2017 13:51
[2017-01-24 12:00] VITALS: BP 123/56; PULSE 75; RESP 17; TEMP 98.6; O2SAT 99
[2017-01-24] MEDS: LEVOFLOXACIN 750 MG PREMIX INJ 150 ML IV SCH (12:43)
--- NOTE | 2017-01-24 14:19 | HHI.PR ---
Subjective Remarks No new coplaints. Objective Vitals Vital Signs Date Time Temp Pulse Resp B/P Pulse Ox O2 Delivery O2 Flow Rate FiO2 01/24/17 12:00 98.6 75 17 123/56 99 01/24/17 08:00 96.6 66 17 130/66 99 01/24/17 00:00 99.8 72 20 105/56 99 01/23/17 20:00 99.2 78 22 129/64 98 01/23/17 17:27 01/23/17 16:00 98.0 75 16 119/67 98 01/23/17 01/23/17 01/24/17 15:00 23:00 07:00 Intake Total 820 ml 220 ml Balance 820 ml 220 ml Intake Oral 720 ml 220 ml IV Total 100 ml # Voids 4 2 # Bowel Movements 0 0 Result Diagram: 01/24/17 0500 01/21/17 0505 Imaging Last [address] 01/20/17 0000 Signed Impressions: Service Date/Time: Friday, January 20, 2017 16:00 - CONCLUSION: 1. 1.3 x 1.8 x 1.6 cm fluid collection along the medial aspect of the right orbit concerning for abscess. 2. Permeative, destructive changes involving the maxilla. 3. Complete opacification of the right maxillary sinus with permeative and destructive changes involving the inferior aspect of maxillary sinus. 4. Diffuse bony thickening around the left maxillary sinus. 5. Mucoperiosteal sinus disease involving the ethmoid sinuses and frontal sinus. 6. The fluid collection along the medial aspect of the right orbit is significantly worse than seen on previous. Compa Henry MD Objective Remarks GENERAL: This is a well-nourished, well-developed patient, in no apparent distress. CARDIOVASCULAR: Regular rate and rhythm without murmurs, gallops, or rubs. RESPIRATORY: Clear to auscultation. Breath sounds equal bilaterally. No wheezes , rales, or rhonchi. GASTROINTESTINAL: Abdomen soft, non-tender, nondistended. Normal active bowel sounds MUSCULOSKELETAL: Extremities without clubbing, cyanosis, or edema. NEURO: Alert & Oriented x4 to person, place, time, situation. Moves all ext x4 skin: abscess, near right eye appears much improved A/P Problem List: (1) Facial abscess Status: Acute Plan: - comgmt with ID, Oncology, Maxillofacial Surgery - h/o osteomyelitis of the right maxillary sinus - facial abscess drained in ER 01/20/17 - wound culture (01/20/17) --> Klebsiella - Blood cultures (01/20/17) --> NGTD - Vancomycin (01/20 - present) - Rocephin (01/21 - 01/22) - Levaquin (01/22 - present) - Appreciate input from specialists - Case d/w ENT, Dr. Micky Jimenes. - conservative measures with antibiotics - leukocytosis has resolved - norco/dilaudid prn pain - Case reviewed with Radiology, changes in maxilla are unchanged from prior CT - IV vancomycin - Case reviewed with ID, will give 2 weeks total of levaquin - anticipate d/c to home in next 1-2 days - repeat CBC in AM (2) Acute abscess of maxillary sinus Status: Acute Plan: - see above (3) Periorbital cellulitis of right eye Status: Acute Plan: - see above (4) Diffuse large B-cell lymphoma Status: Chronic Plan: - Pt receiving R-CHOP per Dr. Cordero - Pt has been tolerating R-CHOP well - appreciate input from Dr. Cordero (5) Anxiety Status: Chronic Plan: - buspirone, xanax prn Problem Qualifiers (1) Diffuse large B-cell lymphoma: Qualified Code: C83.38 - Diffuse large B-cell lymphoma of lymph nodes of multiple regions Juliocesar Camarena DO Jan 24, 2017 14:19
[2017-01-24] MEDS: HYDROmorphone HCL PF 1 MG/ML VIAL IV PUSH PRN (14:27)
[2017-01-24] MEDS: ONDANSETRON HCL 4 MG/2 ML VIAL IVP PRN (14:27)
[2017-01-24 16:00] VITALS: BP 126/85; PULSE 65; RESP 17; TEMP 96.2; O2SAT 99
[2017-01-24 20:00] VITALS: BP 115/61; PULSE 75; RESP 18; TEMP 97.5; O2SAT 100
[2017-01-24 23:29] VITALS: BP 120/78; PULSE 67; RESP 19; TEMP 97.8; O2SAT 98
[2017-01-25 04:58] LABS: BASOPHIL # 0.1 TH/MM3 (0-0.2); BASOPHIL % 0.7 % (0.0-2.0); EOSINOPHIL # 0.1 TH/MM3 (0-0.4); EOSINOPHIL % 1.1 % (0.0-4.0); HEMATOCRIT 25.1 % (35.0-46.0); HEMO FLAGS DIFF FINAL; LYMPHOCYTE # 0.9 TH/MM3 (1.0-4.8); MEAN CELL VOLUME 88.2 FL (80.0-100.0); MEAN CORPUSCULAR HEMOGLOBIN 30.1 PG (27.0-34.0); MEAN CORPUSCULAR HGB CONC 34.1 % (32.0-36.0); MONO % 10.2 % (0.0-8.0); PLATELET COUNT 496 TH/MM3 (150-450); RED BLOOD COUNT 2.85 MIL/MM3 (4.00-5.30); RED CELL DISTRIBUTION WIDTH 18.7 % (11.6-17.2); WHITE BLOOD COUNT 10.1 TH/MM3 (4.0-11.0)
[2017-01-25 05:28] LABS: BICARBONATE 26.6 MEQ/L (21.0-32.0); POTASSIUM 3.6 MEQ/L (3.5-5.1)
[2017-01-25] MEDS ORDERED: PHARMACY ORDERED LAB ONE (07:45)
[2017-01-25 08:00] VITALS: BP 101/64; PULSE 75; RESP 17; TEMP 97.4; O2SAT 97
[2017-01-25] MEDS: buPROPion HCL 100 MG SUSTAINED RELEASE TAB PO SCH (08:18)
[2017-01-25] MEDS: SODIUM CHLORIDE 0.9% FLUSH 10 ML FLUSH IV FLUSH SCH (08:19)
[2017-01-25] MEDS ORDERED: POLY99.0 EACH EYE (08:27)
[2017-01-25] MEDS ORDERED: LEVA750T9 PO (08:27)
--- NOTE | 2017-01-25 08:41 | HHI.DCPOC ---
Discharge Care Plan Diagnosis: (1) Facial abscess (2) Diffuse large B-cell lymphoma (3) Periorbital cellulitis of right eye (4) Anxiety (5) Benign familial tremor (6) HTN (hypertension) (7) Osteomyelitis of maxilla (8) GERD (gastroesophageal reflux disease) (9) Hyperlipidemia Goals to Promote Your Health * To prevent worsening of your condition and complications * To maintain your health at the optimal level Directions to Meet Your Goals Take your medications as prescribed Follow your dietary instruction Follow activity as directed Keep your appointments as scheduled Take your immunizations and boosters as scheduled If your symptoms worsen call your PCP, if no PCP go to Urgent Care Center or Emergency Room Smoking is Dangerous to Your Health. Avoid second hand smoke Call the 24-hour hour crisis hotline for domestic abuse at Lashawn Tamayo Jan 25, 2017 08:41
[2017-01-25] MEDS ORDERED: LEVOFLOXACIN 750 MG TAB PO SCH (09:00)
[2017-01-25] MEDS ORDERED: METR-1 PO (11:10)
--- NOTE | 2017-01-25 11:23 | HHI.IDPN ---
Note Infectious Disease Note Patient feels okay. Eyelid swelling resloved. Denies pain. No problems with vision. Says she has ALICIA. Notes she always gets ALICIA. Afebrile. Wound culture has Klebsiella oxytoca and also mixed anaerobes. Discussed with Dr. Camarena per his discussion with radiology the CT changes suggesting osteo have been present on prior scans and may not reflect osteomyelitis. PAST MEDICAL HISTORY 1. Non-Hodgkin's lymphoma, diffuse large B-cell of the sinus. 2. 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 3. Hypertension. 4. Anxiety. 5. Anemia 6. Tooth extraction 7. Appendectomy 8. Tonsillectomy. ALLERGIES NO KNOWN DRUG ALLERGIES. MEDICATIONS Levaquin. OBJECTIVE: Vital Signs Date Time Temp Pulse Resp B/P Pulse Ox O2 Delivery O2 Flow Rate FiO2 01/25/17 08:00 97.4 75 17 101/64 97 01/24/17 23:29 97.8 67 19 120/78 98 01/24/17 20:00 97.5 75 18 115/61 100 01/24/17 16:00 96.2 65 17 126/85 99 01/24/17 12:00 98.6 75 17 123/56 99 01/24/17 01/24/17 01/25/17 15:00 23:00 07:00 Intake Total 1117 ml 240 ml 240 ml Balance 1117 ml 240 ml 240 ml Intake Oral 717 ml 240 ml 240 ml IV Total 400 ml # Voids 5 1 2 # Bowel Movements 1 0 0 Laboratory Tests Test 01/24/17 01/25/17 05:00 04:52 White Blood Count 10.8 TH/MM3 10.1 TH/MM3 Red Blood Count 2.74 MIL/MM3 2.85 MIL/MM3 Hemoglobin 8.2 GM/DL 8.6 GM/DL Hematocrit 24.0 % 25.1 % Mean Corpuscular Volume 87.7 FL 88.2 FL Mean Corpuscular Hemoglobin 30.0 PG 30.1 PG Mean Corpuscular Hemoglobin 34.2 % 34.1 % Concent Red Cell Distribution Width 18.4 % 18.7 % Platelet Count 425 TH/MM3 496 TH/MM3 Mean Platelet Volume 6.4 FL 6.7 FL Neutrophils (%) (Auto) 80.7 % 79.0 % Lymphocytes (%) (Auto) 8.0 % 9.0 % Monocytes (%) (Auto) 9.8 % 10.2 % Eosinophils (%) (Auto) 1.0 % 1.1 % Basophils (%) (Auto) 0.5 % 0.7 % Neutrophils # (Auto) 8.7 TH/MM3 8.0 TH/MM3 Lymphocytes # (Auto) 0.9 TH/MM3 0.9 TH/MM3 Monocytes # (Auto) 1.1 TH/MM3 1.0 TH/MM3 Eosinophils # (Auto) 0.1 TH/MM3 0.1 TH/MM3 Basophils # (Auto) 0.1 TH/MM3 0.1 TH/MM3 CBC Comment DIFF FINAL DIFF FINAL Differential Comment Laboratory Tests Test 01/25/17 04:52 Sodium Level 140 MEQ/L Potassium Level 3.6 MEQ/L Chloride Level 104 MEQ/L Carbon Dioxide Level 26.6 MEQ/L Anion Gap 9 MEQ/L Blood Urea Nitrogen 11 MG/DL Creatinine 0.75 MG/DL Estimat Glomerular Filtration 78 ML/MIN Rate Random Glucose 107 MG/DL Calcium Level 9.1 MG/DL Magnesium Level 2.0 MG/DL Microbiology Date/Time Procedure Status Source Growth 01/20/17 15:55 Aerobic Blood Culture Received Blood Peripheral Pending 01/20/17 15:55 Anaerobic Blood Culture Received Blood Peripheral Pending 01/20/17 16:20 Aerobic Blood Culture - Preliminary Resulted Blood Peripheral NO GROWTH IN 2 DAYS 01/20/17 16:20 Anaerobic Blood Culture - Preliminary Resulted Blood Peripheral NO GROWTH IN 2 DAYS 01/20/17 16:25 Aerobic Blood Culture - Preliminary Resulted Blood Peripheral NO GROWTH IN 2 DAYS 01/20/17 16:25 Anaerobic Blood Culture - Preliminary Resulted Blood Peripheral NO GROWTH IN 2 DAYS 01/20/17 19:27 Gram Stain - Final Resulted Wound Face 01/20/17 19:27 Wound Culture - Preliminary Resulted Klebsiella Oxytoca IMAGING: Chest X-Ray 01/20/17 1659 Signed Impressions: Service Date/Time: Friday, January 20, 2017 17:50 - CONCLUSION: No acute cardiopulmonary abnormality is identified. Leandro Lopez MD Maxillofacial CT 01/20/17 0000 Signed Impressions: Service Date/Time: Friday, January 20, 2017 16:00 - CONCLUSION: 1. 1.3 x 1.8 x 1.6 cm fluid collection along the medial aspect of the right orbit concerning for abscess. 2. Permeative, destructive changes involving the maxilla. 3. Complete opacification of the right maxillary sinus with permeative and destructive changes involving the inferior aspect of maxillary sinus. 4. Diffuse bony thickening around the left maxillary sinus. 5. Mucoperiosteal sinus disease involving the ethmoid sinuses and frontal sinus. 6. The fluid collection along the medial aspect of the right orbit is significantly worse than seen on previous. Compa Henry MD PHYSICAL EXAMINATION: GENERAL: No acute distress. Awake and alert. HEAD, EYES, EARS, NOSE, AND THROAT: Head is atraumatic. The right periorbital area swelling at the lower eye lid is resolved. The eye is opened fully and the eye globe appears intact. Scab at corner of eyelid in area of previous swelling. Extraocular movements grossly intact. Pupils reactive to light. No icterus. NECK: Supple. No adenopathy. LUNGS: Clear to auscultation. HEART: Regular rate and rhythm. No murmurs. No rubs. No gallops. EXTREMITIES: No clubbing, cyanosis or edema. SKIN: No diffuse rash. IMPRESSION 1. Periorbital cellulitis. Markedly improved. 2. Maxillary sinus abscess. Klebsiella oxytoca. 3. Patient with lymphoma of the maxillary sinus who is undergoing chemotherapy. Last chemotherapy received on January 08. 6. History of osteomyelitis of the right maxillary sinus. The patient may be getting occlusion of the sinus and that is leading to infection including current episodes. RECOMMENDATIONS Continue Levaquin PO and add Flagyl for mixed anaerobe on culture x 14 days. Prescription written for Flagyl. Okay for discharge from my standpoint. Nicanor Lucas MD Jan 25, 2017 11:23
[2017-01-25 12:00] VITALS: BP 134/79; PULSE 85; RESP 17; TEMP 97.3; O2SAT 100
[2017-01-25] MEDS: MAGNESIUM HYDROXIDE SUSP 30 ML CUP PO PRN (14:13)
--- NOTE | 2017-01-25 14:49 | HHI.DS ---
Discharge Summary Admission Date Jan 20, 2017 at 17:14 Discharge Date: Jan 25, 2017 Admitting Diagnosis Right Facial Abscess (1) Facial abscess Diagnosis: Principal (2) Acute abscess of maxillary sinus Diagnosis: Principal (3) Periorbital cellulitis of right eye Diagnosis: Secondary (4) Diffuse large B-cell lymphoma Diagnosis: Secondary (5) Anxiety Diagnosis: Secondary Consultants Dr. Bishop Jimenes- ENT Dr. Karoline Fortune/Dr. Nicanor Lucas - ID Dr. Meredith Cordero - Oncology Dr. Jeremias Saeed - Maxillofacial Surgery Brief History 66-year-old female with a history of large B-cell lymphoma of the maxillary sinus, palate and lip presents to the emergency department for 3 days history of right sided facial redness and swelling. The patient states that the redness began on the lateral aspect of her right cheek and has moved medially to underneath her eye. She states she has pain with moving her right thigh medially and up. She is currently on chemotherapy, last dose was 01/08/17. She denies fever, chills, nausea, vomiting, body aches. No other complaints. Patient had CT which confirmed abscess which was Iand D in er and sent for culture and started on vancomycin . Will consult oral facial and oncology. CBC/BMP: 01/25/17 0452 01/25/17 0452 Significant Findings Laboratory Tests Test 01/23/17 01/24/17 01/25/17 01/25/17 05:00 05:00 04:52 08:15 White Blood Count 11.8 TH/MM3 (4.0-11.0) Red Blood Count 2.81 MIL/MM3 2.74 MIL/MM3 2.85 MIL/MM3 (4.00-5.30) (4.00-5.30) (4.00-5.30) Hemoglobin 8.3 GM/DL 8.2 GM/DL 8.6 GM/DL (11.6-15.3) (11.6-15.3) (11.6-15.3) Hematocrit 24.6 % 24.0 % 25.1 % (35.0-46.0) (35.0-46.0) (35.0-46.0) Red Cell Distribution Width 18.7 % 18.4 % 18.7 % (11.6-17.2) (11.6-17.2) (11.6-17.2) Mean Platelet Volume 6.6 FL 6.4 FL 6.7 FL (7.0-11.0) (7.0-11.0) (7.0-11.0) Neutrophils (%) (Auto) 84.3 % 80.7 % 79.0 % (16.0-70.0) (16.0-70.0) (16.0-70.0) Lymphocytes (%) (Auto) 5.6 % 8.0 % (9.0-44.0) (9.0-44.0) Monocytes (%) (Auto) 8.4 % (0.0-8.0) 9.8 % (0.0-8.0) 10.2 % (0.0-8.0) Neutrophils # (Auto) 10.0 TH/MM3 8.7 TH/MM3 8.0 TH/MM3 (1.8-7.7) (1.8-7.7) (1.8-7.7) Lymphocytes # (Auto) 0.7 TH/MM3 0.9 TH/MM3 0.9 TH/MM3 (1.0-4.8) (1.0-4.8) (1.0-4.8) Monocytes # (Auto) 1.0 TH/MM3 1.1 TH/MM3 1.0 TH/MM3 (0-0.9) (0-0.9) (0-0.9) Platelet Count 496 TH/MM3 (150-450) Estimat Glomerular Filtration 78 ML/MIN (>89) Rate Random Glucose 107 MG/DL (74-106) Vancomycin Level Trough 12.1 MCG/ML (5.0-10.0) Imaging Last Impressions Chest X-Ray 01/20/17 1659 Signed Impressions: Service Date/Time: Friday, January 20, 2017 17:50 - CONCLUSION: No acute cardiopulmonary abnormality is identified. Leandro Lopez MD Maxillofacial CT 01/20/17 0000 Signed Impressions: Service Date/Time: Friday, January 20, 2017 16:00 - CONCLUSION: 1. 1.3 x 1.8 x 1.6 cm fluid collection along the medial aspect of the right orbit concerning for abscess. 2. Permeative, destructive changes involving the maxilla. 3. Complete opacification of the right maxillary sinus with permeative and destructive changes involving the inferior aspect of maxillary sinus. 4. Diffuse bony thickening around the left maxillary sinus. 5. Mucoperiosteal sinus disease involving the ethmoid sinuses and frontal sinus. 6. The fluid collection along the medial aspect of the right orbit is significantly worse than seen on previous. Compa Henry MD ADDENDUM: The destructive changes within the maxilla are similar to prior of 09/20/16. Compa Henry MD PE at Discharge GENERAL: This is a well-nourished, well-developed patient, in no apparent distress. CARDIOVASCULAR: Regular rate and rhythm without murmurs, gallops, or rubs. RESPIRATORY: Clear to auscultation. Breath sounds equal bilaterally. No wheezes , rales, or rhonchi. GASTROINTESTINAL: Abdomen soft, non-tender, nondistended. Normal active bowel sounds MUSCULOSKELETAL: Extremities without clubbing, cyanosis, or edema. NEURO: Alert & Oriented x4 to person, place, time, situation. Moves all ext x4 skin: abscess, near right eye appears much improved Hospital Course Pt is a 66 y/o female with a history of osteomyelitis of the right maxillary sinus and maxillary lymphoma, currently undergoing chemotherapy with R-CHOP. She was admitted with right infraorbital swelling, tenderness and erythema and a facial abscess which was drained in the ED on 01/20/17. Patient has been having a lot of nasalsinus drainage prior to admission and had been able to blow her nose until the day prior due to eye swelling. CT scan of the maxillofacial sinuses (01/20/17) --> 1.3 x 1.8 x 1.6 cm fluid collection along the medial aspect of the right orbit concerning for abscess, permeative, destructive changes involving the maxilla, complete opacification of the right maxillary sinus with permeative and destructive changes involving the inferior aspect of maxillary sinus, diffuse bony thickening around the left maxillary sinus, mucoperiosteal sinus disease involving the ethmoid sinuses and frontal sinus, the fluid collection along the medial aspect of the right orbit is significantly worse than seen on previous. The CT was reviewed with Radiology and it was noted that the changes in maxilla are unchanged from prior CT . Patient was started on IV vancomycin on 01/20. Wound culture (01/20/17) --> Klebsiella and mixed anaerobes. Blood cultures (01/20/17) --> NGTD. Pt was also given Rocephin (01/21 - 01/22) and Levaquin (01/22 - present). ENT, Maxillofacial Surgery, ID, and Oncology were consulted during this admission. The case was discussed between Dr. Camarena and Dr. Bishop Jimenes and ENT recommended conservative measures with antibiotics. Her leukocytosis resolved. ID recommended that the pt continue Levaquin PO 750mg po Daily and Flagyl 500mg TID for mixed anaerobe on culture x 14 days. Pt will continue the nasal flushing Q4H PRN with NaCl 0.9% solution and a prescription was written for this. She will need to followup with Dr. Cordero in 1 week, her chemo has been held until infection resolves. Pt will need to followup with ENT for repeat evaluation in 1-2 weeks. Pt Condition on Discharge: Stable Discharge Disposition: Discharge Home Discharge Instructions DIET: Follow Instructions for: Heart Healthy Diet Activities you can perform: Regular-No Restrictions Follow up Referrals: Ear Nose Throat - [address] Jimenes Oncology - [address] Cordero New Medications: Levofloxacin (Levaquin) 750 Mg Tablet 750 MG PO DAILY infection #13 TAB Metronidazole (Flagyl) 500 Mg Tab 500 MG PO TID Infection #42 Ref 0 TAB Polyvinyl Alcohol Opth Drops (Artificial Tears Opth Drops) 1.4% Soln 1 DROP EACH EYE Q4H PRN dry eyes #1 BOTTLE Saline Nasal ([place] [employer] Nasal) 0.65% [employer] Mark 2 SPRAY EACH NARE Q4H PRN NASAL CONGESTION #1 BOTTLE Continued Medications: Alprazolam (Xanax) 0.5 Mg Tab 0.5 MG PO Q8H PRN ANXIETY #7 Ref 0 TAB Bupropion HCl ER 12 HR (Wellbutrin SR 12 HR) 100 Mg Tab 100 MG PO Q12HR Control Depression Ref 0 TAB Hydrocodone-Acetaminophen (Hydrocodone-Acetaminophen) 5-325 mg Tab 1 TAB PO Q6H PRN PAIN #20 Ref 0 TAB Lashawn Tamayo Jan 25, 2017 14:49 Jian Horan MD Jan 25, 2017 15:50
[2017-01-25 16:00] VITALS: BP 100/61; PULSE 88; RESP 20; TEMP 96.9; O2SAT 90
--- NOTE | 2017-01-25 23:21 | PD.ONC.PN ---
Subjective Subjective Remarks No complaints. Eager to go home. Noted scab continue to be dry. Objective Data Date Time Temp Pulse Resp B/P Pulse Ox O2 Delivery O2 Flow Rate FiO2 01/25/17 16:00 96.9 88 20 100/61 90 01/25/17 12:00 97.3 85 17 134/79 100 01/25/17 08:00 97.4 75 17 101/64 97 01/24/17 23:29 97.8 67 19 120/78 98 01/25/17 01/25/17 01/25/17 07:00 15:00 23:00 Intake Total 240 ml 717 ml Balance 240 ml 717 ml Result Diagram: 01/25/17 0452 01/25/17 0452 Laboratory Results Laboratory Tests Test 01/25/17 01/25/17 04:52 08:15 White Blood Count 10.1 TH/MM3 Red Blood Count 2.85 MIL/MM3 Hemoglobin 8.6 GM/DL Hematocrit 25.1 % Mean Corpuscular Volume 88.2 FL Mean Corpuscular Hemoglobin 30.1 PG Mean Corpuscular Hemoglobin 34.1 % Concent Red Cell Distribution Width 18.7 % Platelet Count 496 TH/MM3 Mean Platelet Volume 6.7 FL Neutrophils (%) (Auto) 79.0 % Lymphocytes (%) (Auto) 9.0 % Monocytes (%) (Auto) 10.2 % Eosinophils (%) (Auto) 1.1 % Basophils (%) (Auto) 0.7 % Neutrophils # (Auto) 8.0 TH/MM3 Lymphocytes # (Auto) 0.9 TH/MM3 Monocytes # (Auto) 1.0 TH/MM3 Eosinophils # (Auto) 0.1 TH/MM3 Basophils # (Auto) 0.1 TH/MM3 CBC Comment DIFF FINAL Differential Comment Sodium Level 140 MEQ/L Potassium Level 3.6 MEQ/L Chloride Level 104 MEQ/L Carbon Dioxide Level 26.6 MEQ/L Anion Gap 9 MEQ/L Blood Urea Nitrogen 11 MG/DL Creatinine 0.75 MG/DL Estimat Glomerular Filtration 78 ML/MIN Rate Random Glucose 107 MG/DL Calcium Level 9.1 MG/DL Magnesium Level 2.0 MG/DL Vancomycin Level Trough 12.1 MCG/ML Objective Remarks GENERAL: Middle aged female upright in bed. SKIN: Warm and dry. HEAD: Normocephalic. Mild L eye swelling. Noted inferior crust, erythema almost resolved.. EYES: No injection or drainage. NECK: Supple, trachea midline CARDIOVASCULAR: Regular rate and rhythm RESPIRATORY: Breath sounds equal bilaterally. No accessory muscle use. GASTROINTESTINAL: Abdomen soft, non-tender, nondistended. EXTREMITIES: No cyanosis NEUROLOGICAL: aox3. normal speech. Assessment/Plan Problem List: (1) Acute abscess of maxillary sinus Status: Acute Plan: 01/25/17. Improving with nasal rinse and antibiotic. Discussed with primary team that changes are chronic. --improving, is now drying out --on Vanco and Levaquin --ENT consulted and recommends sinus saline and antibiotics (2) Diffuse large B-cell lymphoma Status: Chronic Plan: 01/25/17. Anticipate delay chemo x 1 week. Continue abx therapy. Monitor continued response to treatment. --resume therapy outpatient. Assessment 66y/o female admitted with right maxillary/periorbital abscess. Patient in the midst of treatment for a diffuse large B-cell lymphoma. 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 History of osteomyelitis and right maxillary sinus disease. Anxiety. Hypertension Chemotherapy induced anemia. Plan 1. continue oral antibiotics 2. continue nasal saline PRN and eye drops PRN 3. follow up in out pt clinic for chemo and iron. Problem Qualifiers (1) Diffuse large B-cell lymphoma: Qualified Code: C83.38 - Diffuse large B-cell lymphoma of lymph nodes of multiple regions Meredith Cordero MD Jan 25, 2017 23:21 Meredith Cordero MD Jan 25, 2017 23:21
== END 2017-01-25 17:41 | disposition home or self-care (01) | DRG 603 ==
LOC: NEPC 13:20 → NEDA 17:14 → N07B 21:40
PROVIDERS: ADMIT Hospitalist; ATTEND Hospitalist
PROC: 0H91XZZ Drainage of Face Skin, External Approach (ICD-10-PCS; principal; 2017-01-20)
DX: L02.01 Cutaneous abscess of face (principal); C83.31 Diffuse large B-cell lymphoma, lymph nodes of head, face, and neck; L03.213 Periorbital cellulitis; J32.0 Chronic maxillary sinusitis; F41.9 Anxiety disorder, unspecified; I10 Essential (primary) hypertension; D72.825 Bandemia; D64.81 Anemia due to antineoplastic chemotherapy; T45.1X5A Adverse effect of antineoplastic and immunosuppressive drugs, initial encounter; Z80.51 Family history of malignant neoplasm of kidney; Z87.891 Personal history of nicotine dependence; Z83.3 Family history of diabetes mellitus
CPT/HCPCS: 10060; 70487; 71010; 80048; 80053; 80202; 83605; 83735; 85007; 85025; 85027; 85652; 86140; 87040; 87070; 87077; 87185; 87186; 87205; 93005; 96365; 96375; J0696; J1170; J1956; J2270; J2405; J3370; J7030; J7050; Q9967

== ENCOUNTER 2017-01-29 08:26 | Day surgery (SDC) | payer OTHER ==
[~2017-01-29] VITALS: Ht 152.4 cm; Wt 47.0 kg
[~2017-01-29 08:26] MED LIST changes: +BUPR100CR PO; -BUTA1CAP PO; +LEVA750T9 PO; -LISI-515 PO; +METR-1 PO; +POLY99.0 EACH EYE; -PROP40TA3 PO
[2017-01-29] MEDS ORDERED: SODIUM CHLORIDE 0.9% 1000 ML IV SCH (09:00)
[2017-01-29 09:13] VITALS: BP 104/73; PULSE 75; RESP 18; TEMP 97.7; O2SAT 99
[2017-01-29] MEDS ORDERED: BUTA1CAP PO (09:21)
[2017-01-29] MEDS ORDERED: ceFAZolin 2 GM PREMIX 50 ML - implanted port removal IV SCH (09:30)
[2017-01-29 10:06] LABS: INTERNATIONAL NORMALIZED RATIO 1.1 RATIO; PROTHROMBIN TIME - PATIENT 12.2 SEC (9.8-11.6)
[2017-01-29] MEDS ORDERED: LIDOCAINE 1%/EPINEPHrine 1:100,000 SOLN 20 ML VIAL ONE (11:10)
[2017-01-29] MEDS ORDERED: fentaNYL CITRATE 250 MCG/5 ML AMP ONE (11:27)
[2017-01-29] MEDS ORDERED: MIDAZOLAM HCL 5 MG/5 ML VIAL ONE (11:27)
[2017-01-29 11:40] LABS: APTT (PATIENT) 28.7 SEC (24.3-30.1)
[2017-01-29 12:15] VITALS: BP 116/69; PULSE 72; RESP 18; TEMP 97.4; O2SAT 99
[2017-01-29 12:30] VITALS: BP 102/60; PULSE 66; RESP 18; O2SAT 100
[2017-01-29 12:45] VITALS: BP 106/69; PULSE 65; RESP 20; O2SAT 97
--- NOTE | 2017-01-29 12:49 | RADRPT ---
EXAM DATE/TIME: 01/29/2017 00:00 [facility] COMPARISON: No previous studies available for comparison. INDICATIONS : Patient presents with a history of lymphoma in need of port removal due to possible infection. MEDICAL HISTORY : Lymphoma Hx of migraines HTN Maxillary abscess Osteomyelitis SURGICAL HISTORY : Tonsillectomy Appy Breast reduction Exp. lap ENCOUNTER: Subsequent ACUITY: 1 day PAIN SCORE: 0/10 LOCATION: N/A SEDATION TIME: 30 minutes 1.) 3 mg midazolam (Versed) IV 2.) 150 mcg fentanyl (Sublimaze) IV Prophylactic antibiotics were administered with appropriate pre-procedure timing. Vancomycin within 2 hrs of procedure, Ancef (or alternative) within 1 hr of procedure. PROCEDURE : 1. Removal of [id number]. 2. Conscious sedation with continuous EKG and oximetry monitoring. The risk, benefits and potential complications of [id number] removal were discussed. Written conse nt was obtained. The patient was placed supine. The chest wall was prepped in sterile fashion. Full sterile techniqu e was used, including cap, mask, sterile gloves and gown, and a large sterile sheet. Hand hygiene an d 2% chlorhexidine and/or Betadine/alcohol prep was utilized per protocol for cutaneous antisepsis. The skin and subcutaneous tissues were infiltrated with local anesthetic solution. A small incision w as made, the subcutaneous pocket was opened. The port was dissected from the subcutaneous tissues and easily removed in one piece. The pocket incision was closed with subcuticular Vicryl suture. Steri -Strips were applied. Conscious sedation was performed with the prescribed dosages and duration as above in the presence of an independent trained radiology nurse to assist in the monitoring of the patient. EKG and oximetry remained stable throughout the procedure. The patient tolerated the procedure well and there were no complications. The patient was sent to post anesthesia recovery in stable condition. CONCLUSION: Uncomplicated port removal as above. Catheter was submitted for Gram stain and C&S. Yariel Boss MD on January 29, 2017 at 12:45 Board Certified Radiologist. This report was verified electronically.
[2017-01-29 13:15] VITALS: BP 104/70; PULSE 76; RESP 20; O2SAT 100
[2017-01-29 13:45] VITALS: BP 100/65; PULSE 70; RESP 18; O2SAT 100
== END 2017-01-29 14:15 | disposition home or self-care (01) ==
LOC: HROP 08:26 → HRIP 08:28 → HROP 14:15
PROVIDERS: ATTEND Internal Medicine Hematology & Oncology
DX: Z45.2 Encounter for adjustment and management of vascular access device (principal); Z85.72 Personal history of non-Hodgkin lymphomas
CPT/HCPCS: 36590; 85610; 85730; 87071; 99152; 99153; J0690; J2250; J3010; J7030